=== PATIENT | male | born 1975 | race Caucasian/White ===

== ENCOUNTER 2019-01-18 18:44 | Inpatient (IN) | payer OTHER ==
[2019-01-18] MEDS ORDERED: ASPIRIN 81 MG PO STA (19:05)
--- NOTE | 2019-01-18 19:08 | ED ---
Chest Pain HPI - General Chief Complaint: Chest Pain Stated Complaint: chest pain Time Seen by Provider: 01/18/19 18:53 Source: patient Mode of arrival: wheelchair Limitations: no limitations - History of Present Illness Initial Comments: Patient is a 43-year-old male presenting for chest pain. Patient states that 10 minutes prior to arrival, he started having squeezing substernal chest pain with numbness and shooting pain down his right arm. This lasted about 20 minutes. He states that this happened before but never to this severity as well as d uration. 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 This happened while he was at rest and on the couch. He also denies any nausea/vomiting/diarrhea but did become diaphoretic during the episode. He denies any fevers or chills.Pt also denies any prolonged periods of immobility, CA, DVT/PE, estrogen use, or recent surgery. - Related Data Home Medications Medication Instructions Recorded Confirmed Ibuprofen [Motrin Ib] 1,000 mg PO Q8H 01/18/19 01/18/19 Allergies Allergy/AdvReac Type Severity Reaction Status Date / Time No Known Allergies Allergy Verified 01/18/19 19:20 Review of Systems ROS Statement: Those systems with pertinent positive or pertinent negative responses have been documented in the HPI. Constitutional: Negative for chills, fatigue and fever. HENT: Negative for congestion. Respiratory: Positive for chest tightness, negative for shortness of breath and wheezing. Negative for cough Cardiovascular: Negative for chest pain and palpitations. Gastrointestinal: Negative for abdominal pain. Negative for abdominal distention, diarrhea, nausea and vomiting. Genitourinary: Negative for dysuria. Musculoskeletal: Negative for back pain, neck pain and neck stiffness. Skin: Negative for color change. Neurological: Negative for dizziness, speech difficulty, weakness and light- headedness. Psychiatric/Behavioral: Negative for agitation and confusion. Negative for anxiety ROS Other: All systems not noted in ROS Statement are negative. EKG Findings - EKG Comments: EKG Findings:: EKG shows normal sinus rhythm with a rate of 84 bpm, MT interval 150, QRS 94, QTC 430. There are approximately [address] depressions in leads V5 and V6. Past Medical History Past Medical History: No Reported History History of Any Multi-Drug Resistant Organisms: None Reported Past Surgical History: Orthopedic Surgery, Tonsillectomy Past Psychological History: No Psychological Hx Reported Smoking Status: Current every day smoker Past Alcohol Use History: None Reported Past Drug Use History: None Reported General Exam - General Exam Comments Initial Comments: Constitutional: Pt appears well-developed and well-nourished. No distress. Head: Normocephalic and atraumatic. Eyes: EOM are normal. Neck: Normal range of motion. Neck supple. Cardiovascular: Normal rate, regular rhythm, S1 normal, S2 normal and 2+ systolic murmur noted. Exam reveals no gallop and no friction rub. No murmur heard. Pulmonary/Chest: Effort normal and breath sounds normal. No tachypnea and no bradypnea. No respiratory distress. Mild diffuse wheezing in all lung field. No rales noted. Abdominal: Soft. Bowel sounds are normal. Pt exhibits no shifting dullness, no distension, no pulsatile liver, no fluid wave, no abdominal bruit and no ascites. There is no rigidity, no rebound, no guarding, no tenderness at McBurney's point and negative Negron's sign. There is no tenderness. Musculoskeletal: Normal range of motion. Neurological: Pt is alert and oriented to person, place, and time. No cranial nerve deficit. Skin: Skin is warm and dry. No rash noted. Pt is not diaphoretic. No erythema. No pallor. Psychiatric: Pt has a normal mood and affect. Pt behavior is normal. Thought content normal. Limitations: no limitations Course Vital Signs 01/18/19 18:44 Temperature 98.5 F Pulse Rate 89 Respiratory 18 Rate Blood Pressure 151/96 O2 Sat by Pulse 98 Oximetry - Reevaluation(s) Reevaluation #1: 01/18/19 21:35-repeat EKG shows normal sinus rhythm with a rate of 82 bpm, MT interval 140, QRS 100, QTC 432. There is worsening ST elevation in lead V1. Case is been discussed with Dr. Perez and it is recommended that the cath team be brought in emergently although full optical laboratory technician activation for STEMI is not warranted. Recommended that heparin bolus not be initiated but patient will be started on heparin drip for an STEMI. Patient continues to remain hemodynamically stable at this time and is chest pain-free. Troponin is also elevated at 0.08. D-dimer is negative and other laboratory studies are unrem arkable. Chest Pain MDM - MDM As noted in the progress section of this note, patient will be taken to the [facility] urgently. At the time of this note, patient is hemodynamically stable. Disposition Clinical Impression: NSTEMI (non-ST elevated myocardial infarction) Disposition: ADMITTED IP TO THIS HOSP Condition: Fair Instructions (If sedation given, give patient instructions): Chest Pain (ED) Referrals: None,Stated [Primary Care Provider] - 1-2 days Decision to Admit Reason: Admit from EC Decision Date: 01/18/19 Decision Time: 21:40
[2019-01-18 19:56] LABS: Basophils # (A) 0.1 k/uL (0-0.2); Basophils % (A) 1 %; Eosinophils # (A) 0.2 k/uL (0-0.7); Eosinophils % (A) 2 %; HCT 44.5 % (39.0-53.0); HGB 14.9 gm/dL (13.0-17.5); Lymphocytes % (A) 27 %; MCH 30.7 pg (25.0-35.0); MCHC 33.6 g/dL (31.0-37.0); MCV 91.5 fL (80.0-100.0); Monocytes # (A) 0.7 k/uL (0-1.0); Monocytes % (A) 6 %; Neutrophils # (A) 7.2 k/uL (1.3-7.7); Neutrophils % (A) 64 %; Platelet Count 192 k/uL (150-450); RBC 4.86 m/uL (4.30-5.90); RDW 13.7 % (11.5-15.5); WBC 11.3 k/uL (3.8-10.6)
--- NOTE | 2019-01-18 20:09 | XR ---
EXAMINATION TYPE: XR chest 2V DATE OF EXAM: 01/18/2019 COMPARISON: NONE HISTORY: Chest pain TECHNIQUE: Frontal and lateral views of the chest are obtained. FINDINGS: Heart and mediastinum are normal. Lungs are clear of infiltrate. There is no pleural effus ion. Bony thorax is intact. There are chest leads. IMPRESSION: No active cardiopulmonary disease. Normal heart.
[2019-01-18 20:12] LABS: D-Dimer 0.33 mg/L FEU (<0.60); INR 0.9 (<1.2); Partial Thromboplastin Time 22.8 sec (22.0-30.0); Prothrombin Time 9.9 sec (9.0-12.0)
[2019-01-18 20:15] LABS: ALT 19 U/L (21-72); AST 16 U/L (17-59); Albumin 3.6 g/dL (3.5-5.0); Alkaline Phosphatase 55 U/L (38-126); Anion Gap 7 mmol/L; Blood Urea Nitrogen 13 mg/dL (9-20); Calcium 9.5 mg/dL (8.4-10.2); Carbon Dioxide 25 mmol/L (22-30); Chloride 111 mmol/L (98-107); Glucose 102 mg/dL (74-99); Magnesium 1.8 mg/dL (1.6-2.3); Potassium 4.2 mmol/L (3.5-5.1); Sodium 143 mmol/L (137-145); Total Bilirubin 0.4 mg/dL (0.2-1.3); Total Protein 5.9 g/dL (6.3-8.2)
[2019-01-18] MEDS ORDERED: NITROGLYCERIN SL TABS 0.4 MG TAB SUBLINGUAL PRN (21:42)
[2019-01-18] MEDS ORDERED: HEPARIN SODIUM,PORCINE 5,000 UNIT/ML 1 ML VIAL IV ONE (21:42)
[2019-01-18] MEDS ORDERED: MORPHINE SULFATE 4 MG/ML SYRINGE IV PRN (21:42)
[2019-01-18] MEDS ORDERED: METOPROLOL TARTRATE 25 MG TAB PO STA (21:57)
[2019-01-18] MEDS ORDERED: SODIUM CHLORIDE 0.9% 1,000 ML IV ONE (22:20)
[2019-01-18] MEDS ORDERED: HEPARIN SODIUM 1,000 UN/ML (10ML VL) ONE (22:23)
[2019-01-18] MEDS ORDERED: MIDAZOLAM (PF) 2 MG/2 ML VIAL IVP ONE (22:27)
[2019-01-18] MEDS ORDERED: LIDOCAINE 1% INJ 10MG/ML (20 ML MDV) SQ ONE (22:32)
[2019-01-18] MEDS: VERAPAMIL SYRINGE (5 MG/10 ML) INTRAARTER ONE ×2 (22:34→22:53)
[2019-01-18] MEDS ORDERED: HEPARIN SODIUM 1,000 UN/ML (10ML VL) IV ONE (22:35)
[2019-01-18] MEDS: MIDAZOLAM (PF) 2 MG/2 ML VIAL IVP ONE ×2 (22:36→22:43)
[2019-01-18] MEDS ORDERED: MORPHINE SULFATE 4 MG/ML SYRINGE ONE (22:37)
[2019-01-18] MEDS ORDERED: MORPHINE SULFATE 4 MG/ML SYRINGE IVP ONE (22:39)
[2019-01-18] MEDS ORDERED: IOPAMIDOL-370 125ML BTL INJ ONE (22:50)
[2019-01-18] MEDS ORDERED: RX INFO: IV CONTRAST WAS GIVEN 1 EACH MISC MISCELLANE PRN (23:06)
[2019-01-18] MEDS ORDERED: SODIUM CHLORIDE 0.9% 1,000 ML IV SCH (23:15)
--- NOTE | 2019-01-18 23:17 | P.CRDCN ---
History of Present Illness Consult date: 01/18/19 Chief complaint: Chest pain History of present illness: This is a pleasant 43-year-old gentleman with a past medical history significant for history of smoking as well as significant family history of coronary artery disease without any other comorbid conditions including hypertension, dyslipidemia, or diabetes, presented to the emergency room complaining of chest discomfort. He was in his usual state of health until earlier today when he was sitting at home working on his form when he started experiencing discomfort in the mid of the chest, as a squeezing sensation, the chest discomfort was associated with numbness in his lateral right arm. Also it was associated with some sweating. No shortness of breath, dizziness, heart racing, or syncope. Because of that the patient decided to come to the emergency room. In the emergency department he did have some chest discomfort. Subsequently it was resolved. The first set of troponin came in to be slightly elevated. The EKG initially showed sinus rhythm with nonspecific changes in the inferolateral leads but the subsequent EKG revealed sinus rhythm with T-wave inversion in the inferolateral leads quite concerning for ischemia. Because of that I decided to take the patient to the cardiac laboratory apparatus glass blower. I did perform a heart catheterization on him and that revealed critical disease involving the left main coronary artery in its ostium/proximal portion with the disease appeared to be in the range of 99.9%. There was significant dampening in the pressure every time I engaged the left main was 5-[place] catheter. But on the nonselective picture there was clearly critical disease involving the ostial and proximal portion of the left main. At that point the procedure was completed without any complication and the patient was referred to be seen by a surgeon for the evalua tion of coronary artery bypass grafting. Please note that the patient did not have any chest pain nor EKG changes of bone engaging the left main coronary artery. He will be started on anti-ischemic medications including aspirin, and metoprolol, as well as high intensity statin. Also will obtain an echocardiogram to evaluate the left ventricular systolic function also I would get a cardiothoracic surgeon consult. Past Medical History Past Medical History: No Reported History History of Any Multi-Drug Resistant Organisms: None Reported Past Surgical History: Orthopedic Surgery, Tonsillectomy Past Psychological History: No Psychological Hx Reported Smoking Status: Current every day smoker Past Alcohol Use History: None Reported Past Drug Use History: None Reported Medications and Allergies Home Medications Medication Instructions Recorded Confirmed Type Ibuprofen [Motrin Ib] 1,000 mg PO Q8H 01/18/19 01/18/19 History Allergies Allergy/AdvReac Type Severity Reaction Status Date / Time No Known Allergies Allergy Verified 01/18/19 19:20 Physical Exam Vitals: Vital Signs Temp Pulse Resp BP Pulse Ox 01/18/19 22:00 78 16 141/91 100 01/18/19 18:44 98.5 F 89 18 151/96 98 Intake and Output 01/18/19 01/18/19 01/19/19 14:59 22:59 06:59 Intake Total 100 Balance 100 Intake: IV 100 Other: Weight 81.193 kg - Constitutional General appearance: no acute distress - Respiratory Respiratory: bilateral: CTA - Cardiovascular Rhythm: regular Heart sounds: normal: S1, S2 Abnormal Heart Sounds: systolic murmur Results 01/18/19 19:44 01/18/19 19:44 Cardiac Enzymes 01/18/19 01/18/19 Range/Units 19:44 19:44 AST 16 L (17-59) U/L Troponin I 0.081 H* (0.000-0.034) ng/mL Coagulation 01/18/19 Range/Units 19:44 PT 9.9 (9.0-12.0) sec APTT 22.8 (22.0-30.0) sec CBC 01/18/19 Range/Units 19:44 WBC 11.3 H (3.8-10.6) k/uL RBC 4.86 (4.30-5.90) m/uL Hgb 14.9 (13.0-17.5) gm/dL Hct 44.5 (39.0-53.0) % Plt Count 192 (150-450) k/uL Comprehensive Metabolic Panel 01/18/19 Range/Units 19:44 Sodium 143 (137-145) mmol/L Potassium 4.2 (3.5-5.1) mmol/L Chloride 111 H (98-107) mmol/L Carbon Dioxide 25 (22-30) mmol/L BUN 13 (9-20) mg/dL Creatinine 0.77 (0.66-1.25) mg/dL Glucose 102 H (74-99) mg/dL Calcium 9.5 (8.4-10.2) mg/dL AST 16 L (17-59) U/L ALT 19 L (21-72) U/L Alkaline Phosphatase 55 (38-126) U/L Total Protein 5.9 L (6.3-8.2) g/dL Albumin 3.6 (3.5-5.0) g/dL Current Medications Generic Name Dose Route Start Last Admin Trade Name Freq PRN Reason Stop Dose Admin Aspirin 325 mg 01/19/19 09:00 Aspirin PO DAILY [facility] Atorvastatin Calcium 80 mg 01/19/19 21:00 Lipitor PO HS [facility] Heparin Sodium/Sodium Chloride 250 mls @ 9.743 mls/hr 01/18/19 21:30 25,000 unit/ Sodium Chloride IV .Q24H [facility] Protocol 12 UNITS/KG/HR Sodium Chloride 1,000 mls @ 100 mls/hr 01/18/19 23:15 Saline 0.9% IV 01/19/19 04:16 .Q10H [facility] Metoprolol Tartrate 25 mg 01/19/19 09:00 Lopressor PO BID [facility] Miscellaneous Information 1 each 01/18/19 23:06 Rx Info: Iv Contrast Was Given MISCELLANE 01/20/19 23:06 DAILY PRN Per Protocol Morphine Sulfate 4 mg 01/18/19 21:42 Morphine Sulfate (Inj) IV Q5M PRN Chest Pain Nitroglycerin 0.4 mg 01/18/19 21:42 Nitrostat SUBLINGUAL Q5M PRN Chest Pain Intake and Output 01/18/19 01/18/19 01/19/19 14:59 22:59 06:59 Intake Total 100 Balance 100 Intake: IV 100 Other: Weight 81.193 kg Patient Weight 01/19/19 06:59 Weight 81.193 kg 01/18/19 19:44 01/18/19 19:44 Assessment and Plan Assessment: Assessment #1 acute non-ST deviation myocardial infarction #2 severe left main coronary artery disease #3 history of smoking #4 significant family history of coronary artery disease Plan #1 consult surgeon for the evaluation of CABG #2 aspirin, metoprolol, and high intensity statin #3 an echocardiogram was Doppler to establish LV function #4 fasting lipid profile #5 follow-up with the patient Thank you for allowing us participate in his care and we will continue following up with him
[2019-01-18 23:20] LABS: Glucose,Whole Blood 101 mg/dL (75-99)
[2019-01-18 23:25] LABS: Cholesterol 132 mg/dL (<200); HDL Cholesterol 32 mg/dL (40-60); LDL Cholesterol,Calculated 80 mg/dL (0-99); Triglycerides 102 mg/dL (<150)
[2019-01-18] MEDS: ATORVASTATIN 80 MG TAB PO SCH (23:58)
--- NOTE | 2019-01-19 00:02 | CC ---
CARDIAC CATHETERIZATION REPORT DATE OF SERVICE: January 18, 2019 PERFORMING PHYSICIAN: Eduar Desai MD, assistant quality manager. PROCEDURE PERFORMED: 1. Selective right and left coronary angiogram. 2. Left heart catheterization. INDICATION: This is a pleasant 43-year-old gentleman with history of smoking as well as significant family history of coronary artery disease, presented to the emergency room with chest discomfort started earlier today. The cardiac enzymes were slightly elevated. The EKG showed dynamic changes in the inferolateral leads. Because of that, heart catheterization was advised. APPROACH: Right radial artery. COMPLICATION: None. LEVEL OF SEDATION: Moderate with sedation length of 23 minutes. PROCEDURE DESCRIPTION: After obtaining an informed consent, the patient was brought to cardiac medical laboratory technical officer. The right radial artery was cannulated using micropuncture technique, the micropuncture wire passed easily. Then I placed a 5-Wolof sheath 11 cm in the right radial artery. After that, I did give the patient 2 mg of verapamil IA and 8000 units of heparin IV. After that, I did selective right and left coronary angiogram using JR4 and JL3.5 catheters. Left heart catheterization was performed using 5-Wolof pigtail catheter. The procedure was completed without any complication. SELECTIVE CORONARY ANGIOGRAM: 1. The right coronary artery is a medium to large caliber vessel and is a dominant vessel. The right coronary artery appeared to have mild disease only distally. It gives collateral to the left circumflex and left anterior descending artery. 2. The left main has a lesion in the ostium that appeared to be in the range of 95%. The left main bifurcates into the left circumflex and left anterior descending artery. 3. The left circumflex is a large caliber vessel and it is a nondominant vessel. The left circumflex itself appears to be angiographically normal. 4. The proximal LAD appeared to have mild disease only. The mid LAD and distal LAD appeared to be angiographically normal. The LAD gives rise into a medium to large sized diagonal branch which seems to be normal. HEMODYNAMICS: The left ventricular end-diastolic pressure was about 8 mmHg without significant gradient across aortic valve. CONCLUSION: Critical disease involving the ostial/proximal left main coronary artery. POSTPROCEDURE MANAGEMENT: 1. Given the above anatomy, I did recommend the patient to undergo coronary artery bypass grafting. 2. Start the patient on anti-platelet as well as anti-ischemic medications. 3. He will be started on aspirin, high intensity statin, as well as metoprolol. 4. Obtain an echocardiogram with Doppler. 5. Consult cardiothoracic surgeon for the evaluation of CABG. BRIT / IJN: [id number] /
[2019-01-19 04:33] LABS: Basophils # (A) 0.1 k/uL (0-0.2); Basophils % (A) 1 %; Eosinophils # (A) 0.2 k/uL (0-0.7); Eosinophils % (A) 2 %; HCT 41.5 % (39.0-53.0); HGB 13.6 gm/dL (13.0-17.5); Lymphocytes # (A) 4.3 k/uL (1.0-4.8); Lymphocytes % (A) 49 %; MCH 30.4 pg (25.0-35.0); MCHC 32.7 g/dL (31.0-37.0); Mean Platelet Volume 7.4; Monocytes # (A) 0.4 k/uL (0-1.0); Monocytes % (A) 4 %; Neutrophils # (A) 3.9 k/uL (1.3-7.7); Neutrophils % (A) 43 %; Platelet Count 171 k/uL (150-450); RBC 4.47 m/uL (4.30-5.90); RDW 14.1 % (11.5-15.5); WBC 8.9 k/uL (3.8-10.6)
[2019-01-19 04:46] LABS: INR 0.9 (<1.2); Partial Thromboplastin Time 22.7 sec (22.0-30.0); Prothrombin Time 10.1 sec (9.0-12.0)
[2019-01-19 04:49] LABS: ALT 20 U/L (21-72); AST 12 U/L (17-59); Alkaline Phosphatase 45 U/L (38-126); Anion Gap 5 mmol/L; Blood Urea Nitrogen 12 mg/dL (9-20); Calcium 8.7 mg/dL (8.4-10.2); Carbon Dioxide 27 mmol/L (22-30); Chloride 111 mmol/L (98-107); Glucose 142 mg/dL (74-99); Magnesium 1.9 mg/dL (1.6-2.3); Phosphorus 4.4 mg/dL (2.5-4.5); Potassium 3.8 mmol/L (3.5-5.1); Sodium 143 mmol/L (137-145); Total Bilirubin 0.2 mg/dL (0.2-1.3); Total Protein 5.2 g/dL (6.3-8.2)
[2019-01-19] MEDS ORDERED: Potassium Replacement Protocol 1 EACH MISC MISCELLANE PRN (05:04)
[2019-01-19] MEDS ORDERED: Magnesium Replacement Protocol 1 EACH MISC MISCELLANE PRN (05:06)
[2019-01-19] MEDS: MAGNESIUM SULFATE-D5W PMX 1 GM in DEXTROSE/WATER 1 100ML.BAG IVPB SCH ×2 (05:26→06:34)
--- NOTE | 2019-01-19 05:29 | P.HPIM ---
History of Present Illness H&P Date: 01/18/19 Chief Complaint: chest pain The patient is a 43-year-old male with no significant past medical history that presents to the ER via private vehicle with chief complaints of chest pain. Apparently the patient began having substernal squeezing chest tightness rated at a 7 out of 10 with radiation to his right upper extremity with some associated shortness of breath and diaphoresis that began at approximately 6 PM this evening. The patient is denies any associated with exertion as he was simply using his phone on his symptoms began. The patient does have a history of smoking and reports a family history of early coronary disease in his father. The patient reports that he's been having similar episodes over the last month but they have never previously been quite as severe, they have all only lasted less than 5 minutes however today the patient reports that his pain was persisting up to 20 minutes prior to presentation. The patient had previously attributed his symptoms to stress. In the ER the patient had a comprehensive workup, was noted to have elevated troponin at 0.081, with EKG showing some ST depression in the inferior lateral leads, d-dimer was negative. Chest x-ray showed no acute cardiopulmonary disease. The patient was given 4 baby aspirin and started on heparin drip per protocol and recommended for admission for ACS. Review of Systems Pertinent positives per HPI all others review of systems are otherwise negative Past Medical History Past Medical History: No Reported History History of Any Multi-Drug Resistant Organisms: None Reported Past Surgical History: Orthopedic Surgery, Tonsillectomy Past Psychological History: No Psychological Hx Reported Smoking Status: Current every day smoker Past Alcohol Use History: None Reported Past Drug Use History: None Reported - Past Family History Mother Additional Family Medical History / Comment(s): hypoglycemic Father Family Medical History: Chest Pain / Angina, Diabetes Mellitus, Myocardial Infarction ([place]) Medications and Allergies Home Medications Medication Instructions Recorded Confirmed Type Ibuprofen [Motrin Ib] 1,000 mg PO Q8H 01/18/19 01/18/19 History Allergies Allergy/AdvReac Type Severity Reaction Status Date / Time No Known Allergies Allergy Verified 01/18/19 19:20 Physical Exam Vitals: Vital Signs Temp Pulse Resp BP Pulse Ox 01/18/19 18:44 98.5 F 89 18 151/96 98 Intake and Output 01/18/19 01/18/19 01/18/19 06:59 14:59 22:59 Other: Weight 81.193 kg Constitutional: No acute distress, conversant, pleasant Eyes: Anicteric sclerae, moist conjunctiva, no lid-lag, PERRLA ENMT: NC/AT,Oropharynx clear, no erythema, exudates Neck:Supple, FROM, no masses, or JVD, No carotid bruits; No thyromegaly Lungs: Clear to auscultation, Clear to percussion, Normal respiratory effort, no accessory muscle use Cardiovascular: Heart regular in rate and rhythm, No murmurs, gallops, or rubs no peripheral edema Abdominal: Soft Nontender, nom distended, no guarding, no rebound or rigidity, Normoactive bowel sounds No hepatomegaly, No splenomegaly, No palpable mass No abdominal wall hernia noted Skin: Normal temperature, tone, texture, turgor, No induration No subcutaneous nodules, No rash, lesions, No ulcers Extremities:No digital cyanosis No clubbing, Pedal pulses intact and symmetrical Radial pulses intact and symmetrical Normal gait and station, No ca lf tenderness Psychiatric: Alert and oriented to person, place and time, Appropriate affect Intact judgement Neuro: Muscles Strength 5/5 in all 4 extremities, Sensation to light touch grossly present throughout, Cranial nerves II-XII grossly intact. No focal sensory deficits Results CBC & Chem 7: 01/19/19 04:18 01/19/19 04:18 Labs: Abnormal Lab Results - Last 24 Hours (Table) 01/18/19 01/18/19 01/18/19 Range/Units 19:44 19:44 19:44 WBC 11.3 H (3.8-10.6) k/uL Chloride 111 H (98-107) mmol/L Glucose 102 H (74-99) mg/dL AST 16 L (17-59) U/L ALT 19 L (21-72) U/L Troponin I 0.081 H* (0.000-0.034) ng/mL Total Protein 5.9 L (6.3-8.2) g/dL Assessment and Plan (1) NSTEMI (non-ST elevated myocardial infarction) Current Visit: Yes Status: Acute Code(s): I21.4 - NON-ST ELEVATION (NSTEMI) MYOCARDIAL INFARCTION SNOMED Code(s): 17004176 (2) Essential hypertension Current Visit: Yes Status: Acute Code(s): I10 - ESSENTIAL (PRIMARY) HY PERTENSION SNOMED Code(s): 19564000 (3) Smoking Current Visit: Yes Status: Acute Code(s): F17.200 - NICOTINE DEPENDENCE, UNSPECIFIED, UNCOMPLICATED SNOMED Code(s): 57306831 Plan: The patient is admitted anticipated greater than 2 midnight stay with acute coronary syndrome with non-STEMI after presenting with chest pain, with EKG evidence of inferior lateral ischemia and elevation of cardiac enzymes troponin at 0.081. Cardiology was consulted from the ER and plans to take the patient urgently to the labor relations director. The patient is continued on heparin drip, antiplatelet therapy with aspirin and statin therapy with Lipitor and initiated on metoprolol We'll plan to have a echocardiogram performed. Lipid panel check CODE STATUS: Full code Discussed plan of care with: Patient anticipated discharge: 2-3 days Time with Patient: Greater than 30
[2019-01-19] MEDS ORDERED: POTASSIUM CHLORIDE ER 20 MEQ TAB.ER PO SCH (06:00)
--- NOTE | 2019-01-19 07:39 | P.PN ---
Subjective Progress Note Date: 01/19/19 Principal diagnosis: Acute non-ST deviation [place] This is a pleasant 43-year-old gentleman with history of smoking and significant family history of coronary artery disease presented to the emergency room with a chest discomfort and he was found to have mildly abnormal cardiac enzymes as well as ST changes in the inferolateral leads highly suggestive of severe underlying coronary artery disease. Because of that the patient underwent a heart catheterization last night showed critical disease involving the left main coronary artery. He was referred for coronary artery bypass grafting and he is in process to be seen by a cardiothoracic surgeon. On follow-up with him this morning, January 192018, he seems to be asymptomatic from the cardiac standpoint. He has been maintaining normal sinus rhythm. He is on aspirin, metoprolol, and statin. He does have some right radial hematoma and he still have the TR band in place. The plan is to restart the patient back on heparin once we have good hemostasis. Also follow-up on the echocardiogram which going to be performed today. Objective - Vital Signs Vital signs: Vital Signs Temp 97.9 F 01/19/19 04:00 Pulse 62 01/19/19 06:00 Resp 13 01/19/19 06:00 BP 122/84 01/19/19 06:00 Pulse Ox 95 01/19/19 06:00 Intake & Output 01/18/19 01/19/19 01/19/19 18:59 06:59 18:59 Intake Total 1660 Output Total 525 Balance 1135 Weight 81.193 kg 84.2 kg Intake: IV 200 Magnesium Sulfate-D5w Pmx 100 1 gm In Dextrose/Water 1 100ml.bag @ 100 mls/hr IVPB Q1H [facility] Rx#: [id number] Intake, IV Titration 620 Amount Sodium Chloride 0.9% 1, 620 000 ml @ 100 mls/hr IV . Q10H [facility] Rx#:[id number] Oral 840 Output: Urine 525 Other: Voiding Method Urinal # Voids 1 - Constitutional General appearance: Present: no acute distress - Respiratory Respiratory: bilateral: CTA - Cardiovascular Rhythm: regular Heart sounds: normal: S1, S2 - Labs CBC & Chem 7: 01/19/19 04:18 01/19/19 04:18 Labs: Abnormal Lab Results - Last 24 Hours (Table) 01/18/19 01/18/19 01/18/19 Range/Units 19:44 19:44 19:44 WBC 11.3 H (3.8-10.6) k/uL Chloride 111 H (98-107) mmol/L Glucose 102 H (74-99) mg/dL POC Glucose (mg/dL) (75-99) mg/dL AST 16 L (17-59) U/L ALT 19 L (21-72) U/L Troponin I 0.081 H* (0.000-0.034) ng/mL Total Protein 5.9 L (6.3-8.2) g/dL Albumin (3.5-5.0) g/dL HDL Cholesterol (40-60) mg/dL 01/18/19 01/18/19 01/19/19 Range/Units 19:44 23:16 02:22 WBC (3.8-10.6) k/uL Chloride (98-107) mmol/L Glucose (74-99) mg/dL POC Glucose (mg/dL) 101 H (75-99) mg/dL AST (17-59) U/L ALT (21-72) U/L Troponin I 0.103 H* (0.000-0.034) ng/mL Total Protein (6.3-8.2) g/dL Albumin (3.5-5.0) g/dL HDL Cholesterol 32 L (40-60) mg/dL 01/19/19 Range/Units 04:18 WBC (3.8-10.6) k/uL Chloride 111 H (98-107) mmol/L Glucose 142 H (74-99) mg/dL POC Glucose (mg/dL) (75-99) mg/dL AST 12 L (17-59) U/L ALT 20 L (21-72) U/L Troponin I (0.000-0.034) ng/mL Total Protein 5.2 L (6.3-8.2) g/dL Albumin 3.0 L (3.5-5.0) g/dL HDL Cholesterol (40-60) mg/dL Assessment and Plan Assessment: Assessment #1 acute non-ST deviation myocardial infarction #2 severe left main coronary artery disease #3 history of smoking #4 significant family history of coronary artery disease Plan #1 consult surgeon for the evaluation of CABG #2 aspirin, metoprolol, and high intensity statin #3 an echocardiogram was Doppler to establish LV function #4 follow-up with the patient Thank you for allowing us participate in his care and we will continue following up with him
[2019-01-19] MEDS: ASPIRIN 325 MG TAB PO SCH (09:47)
[2019-01-19] MEDS: METOPROLOL TARTRATE 25 MG TAB PO SCH ×2 (09:47→20:47)
[2019-01-19] MEDS: HEPARIN SOD,PORK IN 0.45% NACL 25,000 UNIT in 0.45% NACL 1 250ML.BAG IV SCH (09:49)
--- NOTE | 2019-01-19 09:58 | US ---
EXAMINATION TYPE: US carotid duplex BILAT DATE OF EXAM: 01/19/2019 COMPARISON: NONE CLINICAL HISTORY: preop cabg. No HTN, no hx of tia or stroke EXAM MEASUREMENTS: RIGHT: Peak Systolic Velocity (PSV) cm/sec ----- Right CCA: 77.6 ----- Right ICA: 88.6 ----- Right ECA: 143.1 ICA/CCA ratio: 1.1 RIGHT: End Diastole cm/sec ----- Right CCA: 28.1 ----- Right ICA: 40.2 ----- Right ECA: 28.4 LEFT: Peak Systolic Velocity (PSV) cm/sec ----- Left CCA: 96.3 ----- Left ICA: 75.6 ----- Left ECA: 18.9 ICA/CCA ratio: 0.8 LEFT: End Diastole cm/sec ----- Left CCA: 38.0 ----- Left ICA: 35.4 ----- Left ECA: 32.7 VERTEBRALS (direction of flow): Right Vertebral: Antegrade Left Vertebral: Antegrade Rhythm: Normal IMPRESSION: No plaque. Elevated bilateral ECA's. No significant stenosis. Left CCA wall thickening . Criteria for Assigning % of Stenosis / Diameter reduction (Estimation based on the indirect measurements of the internal carotid artery velocities (ICA PSV). 1. Normal (no stenosis)=ICA PSV < 125 cm/s: ratio < 2.0: ICA EDV<40 cm/s. 2. Less than 50% stenosis=ICA PSV < 125 cm/s: ratio < 2.0: ICA EDV<40 cm/s. 3. 50 to 69% stenosis=ICA PSV of 125 to 230 cm/s: ration 2.0 ? 4.0: ICA EDV 40-100 cm/s. 4. Greater than 70% stenosis to near occlusion= ICA PSV > 230 cm/s: ratio > 4.0: ICA EDV > 100 cm/s. 5. Near occlusion= ICA PSV velocities may be low or undetectable: variable ratio and ICA EDV. 6. Total occlusion=unable to detect flow.
[2019-01-19 10:26] LABS: Appearance,Urine Clear (Clear); Bilirubin,Urine Negative (Negative); Blood,Urine Negative (Negative); Color,Urine Yellow; Glucose,Urine (UA) Negative (Negative); Ketones,Urine Negative (Negative); Leukocyte Esterase,Urine Negative (Negative); Nitrite,Urine Negative (Negative); PH, Urine 5.5 (5.0-8.0); Protein,Urine Negative (Negative); Specific Gravity,Urine 1.022 (1.001-1.035); Urobilinogen,Urine <2.0 mg/dL (<2.0)
--- NOTE | 2019-01-19 10:35 | P.GSCN ---
History of Present Illness Consult date: 01/19/19 Reason for Consult: Critical left main disease, surgical recommendations Requesting physician: Eduar Desai History of present illness: This is a 43-year-old gentleman who has not followed with a primary care physician in the last 4-5 years. His only previous medical history is current tobacco dependence, and family history of premature coronary artery disease. He has not been on any medical therapy. He presented to [facility] emergency room last night with complaints of severe substernal chest pain asso ciated with right arm numbness and diaphoresis, no complaints of shortness of breath, nausea, dizziness or any other aggravating factors. Upon further questioning he has been having similar episodes over the previous month just not quite as severe. His previous episodes only lasted for a couple of minutes, and abated on their own and he attributed these episodes to stress. Last night's episode lasted 20 minutes prompting the patient to come to the emergency room. His EKG did demonstrate ST changes in the inferolateral leads. His troponins were mildly elevated and he was ruled in for non-STEMI. He was taken urgently to the cardiac catheterization lab by Dr. Desai and was found to have 95% ostial left main stenosis. Due to these findings Dr. Purvis from cardiothoracic surgery was consulted regarding surgical revascularization recommendations. Review of Systems Review of systems was completed and was negative except as noted. - Cardiovascular Reports as per HPI, Reports chest pain Past Medical History Past Medical History: No Reported History History of Any Multi-Drug Resistant Organisms: None Reported Past Surgical History: Tonsillectomy Additional Past Surgical History / Comment(s): ear surgerys 7-[address], broken fingers, history of elevated liver enzymes while in , scarlet fever 3 times while younger Past Anesthesia/Blood Transfusion Reactions: No Reported Reaction Past Psychological History: No Psychological Hx Reported Smoking Status: Current every day smoker Past Alcohol Use History: Rare Past Drug Use History: None Reported - Past Family History Mother Additional Family Medical History / Comment(s): hypoglycemic Father Family Medical History: Chest Pain / Angina, Diabetes Mellitus, Myocardial Infarction ([place]) Additional Family Medical History / Comment(s): in his early 40s from heart disease, also grandfather and several uncles with premature heart disease Medications and Allergies Home Medications Medication Instructions Recorded Confirmed Type Ibuprofen [Motrin Ib] 1,000 mg PO Q8H 05/05/19 05/05/19 History Allergies Allergy/AdvReac Type Severity Reaction Status Date / Time No Known Allergies Allergy Verified 01/18/19 19:20 Surgical - Exam Vital Signs Temp Pulse Resp BP Pulse Ox 98.5 F 89 18 151/96 98 01/18/19 18:44 01/18/19 18:44 01/18/19 18:44 01/18/19 18:44 01/18/19 18:44 - General well developed, well nourished, no distress, no pain - Eyes PERRL, normal ocular movement - ENT Does have some missing teeth and a cracked tooth, has not seen the dentist in years no hearing loss - Neck no masses, no bruits, trachea midline - Respiratory Lungs sounds clear bilaterally. Respirations even, nonlabored. Currently on room air with oxygen saturation 96%. No chest wall deformities. - Cardiovascular S1, S2 present. Regular rate and rhythm, sinus rhythm on telemetry. Palpable peripheral pulses bilaterally. No edema present. No calf pain or tenderness noted. No varicosities noted. - Abdomen Abdomen: soft, non tender, bowel sounds - Genitourinary Deferred - Rectum Deferred - Integumentary Right radial artery heart catheterization site without drainage, hematoma present with TR band in place. no rash, no growths - Neurologic normal coordination, normal sensation - Musculoskeletal normal posture - Psychiatric oriented to time, oriented to person, oriented to place, speech is normal, memory intact Results - Labs 01/19/19 04:18 01/19/19 04:18 Abnormal Lab Results - Last 24 Hours (Table) 01/18/19 01/18/19 01/18/19 Range/Units 19:44 19:44 19:44 WBC 11.3 H (3.8-10.6) k/uL Chloride 111 H (98-107) mmol/L Glucose 102 H (74-99) mg/dL POC Glucose (mg/dL) (75-99) mg/dL AST 16 L (17-59) U/L ALT 19 L (21-72) U/L Troponin I 0.081 H* (0.000-0.034) ng/mL Total Protein 5.9 L (6.3-8.2) g/dL Albumin (3.5-5.0) g/dL HDL Cholesterol (40-60) mg/dL 01/18/19 01/18/19 01/19/19 Range/Units 19:44 23:16 02:22 WBC (3.8-10.6) k/uL Chloride (98-107) mmol/L Glucose (74-99) mg/dL POC Glucose (mg/dL) 101 H (75-99) mg/dL AST (17-59) U/L ALT (21-72) U/L Troponin I 0.103 H* (0.000-0.034) ng/mL Total Protein (6.3-8.2) g/dL Albumin (3.5-5.0) g/dL HDL Cholesterol 32 L (40-60) mg/dL 01/19/19 01/19/19 Range/Units 04:18 08:33 WBC (3.8-10.6) k/uL Chloride 111 H (98-107) mmol/L Glucose 142 H (74-99) mg/dL POC Glucose (mg/dL) (75-99) mg/dL AST 12 L (17-59) U/L ALT 20 L (21-72) U/L Troponin I 0.108 H* (0.000-0.034) ng/mL Total Protein 5.2 L (6.3-8.2) g/dL Albumin 3.0 L (3.5-5.0) g/dL HDL Cholesterol (40-60) mg/dL Diabetes panel 01/18/19 01/18/19 01/19/19 Range/Units 19:44 19:44 04:18 Sodium 143 143 (137-145) mmol/L Potassium 4.2 3.8 (3.5-5.1) mmol/L Chloride 111 H 111 H (98-107) mmol/L Carbon Dioxide 25 27 (22-30) mmol/L BUN 13 12 (9-20) mg/dL Creatinine 0.77 0.83 (0.66-1.25) mg/dL Glucose 102 H 142 H (74-99) mg/dL Calcium 9.5 8.7 (8.4-10.2) mg/dL AST 16 L 12 L (17-59) U/L ALT 19 L 20 L (21-72) U/L Alkaline Phosphatase 55 45 (38-126) U/L Total Protein 5.9 L 5.2 L (6.3-8.2) g/dL Albumin 3.6 3.0 L (3.5-5.0) g/dL Triglycerides 102 (<150) mg/dL HDL Cholesterol 32 L (40-60) mg/dL Thyroid panel 01/19/19 Range/Units 08:36 TSH 1.670 (0.465-4.680) mIU/L Calcium panel 01/18/19 01/19/19 Range/Units 19:44 04:18 Calcium 9.5 8.7 (8.4-10.2) mg/dL Phosphorus 4.4 (2.5-4.5) mg/dL Albumin 3.6 3.0 L (3.5-5.0) g/dL Pituitary panel 01/18/19 01/19/19 01/19/19 Range/Units 19:44 04:18 08:36 Sodium 143 143 (137-145) mmol/L Potassium 4.2 3.8 (3.5-5.1) mmol/L Chloride 111 H 111 H (98-107) mmol/L Carbon Dioxide 25 27 (22-30) mmol/L BUN 13 12 (9-20) mg/dL Creatinine 0.77 0.83 (0.66-1.25) mg/dL Glucose 102 H 142 H (74-99) mg/dL Calcium 9.5 8.7 (8.4-10.2) mg/dL TSH 1.670 (0.465-4.680) mIU/L Adrenal panel 01/18/19 01/19/19 Range/Units 19:44 04:18 Sodium 143 143 (137-145) mmol/L Potassium 4.2 3.8 (3.5-5.1) mmol/L Chloride 111 H 111 H (98-107) mmol/L Carbon Dioxide 25 27 (22-30) mmol/L BUN 13 12 (9-20) mg/dL Creatinine 0.77 0.83 (0.66-1.25) mg/dL Glucose 102 H 142 H (74-99) mg/dL Calcium 9.5 8.7 (8.4-10.2) mg/dL Total Bilirubin 0.4 0.2 (0.2-1.3) mg/dL AST 16 L 12 L (17-59) U/L ALT 19 L 20 L (21-72) U/L Alkaline Phosphatase 55 45 (38-126) U/L Total Protein 5.9 L 5.2 L (6.3-8.2) g/dL Albumin 3.6 3.0 L (3.5-5.0) g/dL - Imaging Chest x-ray: report reviewed, image reviewed EKG: image reviewed Additional studies: Heart catheterization films were reviewed with Dr. Purvis Assessment and Plan Assessment: 1. Critical left main stenosis 2. Non-STEMI 3. Current tobacco dependence 4. Significant family history of premature coronary artery disease Plan: The patient was seen and examined at the bedside with Dr. Purvis. Chart/diagnostics were reviewed. We recommend urgent coronary artery bypass surgery. The usual perioperative course was discussed in detail with the patient, risks and benefits were reviewed, all questions were answered, and the patient did consent to surgery. Preoperative testing was initiated. We recommend maximizing medical therapy with aspirin, statin, beta blockers. Our plan is for urgent coronary artery bypass graft surgery with left internal mammary artery, endoscopic vein harvesting, possible left radial artery harvest, and intraoperative transesophageal echocardiogram on 01/21/[address] Balbuena pending results of preoperative testing. STS risk score will be ca lculated and discussed with the patient, and 5 m walk test will be performed. Continue medical management per primary care, cardiology. We will continue to reinforce teaching. More recommendations to follow. Thank you Dr. Desai for this consult. We look forward to working with you in the care of this patient. Time with Patient: Greater than 30
--- NOTE | 2019-01-19 11:46 | ECHOF ---
Referral Reason:nstemi MEASUREMENTS -------- HEIGHT: 175.3 cm WEIGHT: 83.9 kg BP: 122/84 IVSd: 1.3 cm (0.6 - 1.1) LVIDd: 4.3 cm (3.9 - 5.3) LVPWd: 1.3 cm (0.6 - 1.1) IVSs: 1.6 cm LVIDs: 3.0 cm LVPWs: 1.8 cm LA Diam: 3.3 cm (2.7 - 3.8) RVIDd: 2.9 cm (< 3.3) LAESV Index (A-L): 27.04 ml/m Ao Diam: 2.8 cm (2.0 - 3.7) AV Cusp: 1.9 cm (1.5 - 2.6) EPSS: 0.6 cm MV E Art: 1.10 m/s MV DecT: 172 ms MV A Art: 0.78 m/s MV E/A Ratio: 1.40 AV maxP.39 mmHg AV meanP.14 mmHg RAP: 5.00 mmHg RVSP: 33.46 mmHg MV EF SLOPE: 118.78 mm/s (70 - 150) MV EXCURSION: 17.57 mm (> 18.000) FINDINGS -------- Sinus rhythm. This was a technically good study. The left ventricular size is normal. There is mild concentric left ventricular hypertrophy. Overa ll left ventricular systolic function is normal with, an EF between 60 - 65 %. The right ventricle is normal in size. Normal LA size by volume 22+/-6 ml/m2. The right atrium is normal in size. The aortic valve is trileaflet and appears structurally normal. There is trace to mild mitral regurgitation. Mild tricuspid regurgitation present. There is borderline pulmonary hypertension. The right ventr icular systolic pressure, as measured by Doppler, is 33.46mmHg. The pulmonic valve was not well visualized. The aortic root size is normal. Normal inferior vena cava with normal inspiratory collapse consistent with estimated right atrial pre ssure of 5 mmHg. The inferior vena cava is mildly dilated. There is no pericardial effusion. CONCLUSIONS -------- 1. Sinus rhythm. 2. This was a technically good study. 3. The left ventricular size is normal. 4. There is mild concentric left ventricular hypertrophy. 5. Overall left ventricular systolic function is normal with, an EF between 60 - 65 %. 6. The right ventricle is normal in size. 7. Normal LA size by volume 22+/-6 ml/m2. 8. The right atrium is normal in size. 9. The aortic valve is trileaflet and appears structurally normal. 10. There is trace to mild mitral regurgitation. 11. Mild tricuspid regurgitation present. 12. There is borderline pulmonary hypertension. 13. The right ventricular systolic pressure, as measured by Doppler, is 33.46mmHg. 14. The pulmonic valve was not well visualized. 15. The aortic root size is normal. 16. Normal inferior vena cava with normal inspiratory collapse consistent with estimated right atrial pressure of 5 mmHg. 17. The inferior vena cava is mildly dilated. 18. There is no pericardial effusion. RESPIRATORY CLINICIAN: Ana M Ho RDCS
--- NOTE | 2019-01-19 11:54 | P.CNPUL ---
History of Present Illness Consult date: 01/19/19 Requesting physician: Saji Purvis Reason for consult: other (Preoperative pulmonary clearance for) Chief complaint: Chest pain History of present illness: This is a 43-year-old white male, [id number] smoker, strong family history of premature coronary artery disease, no history of hypertension, no history of diabetes, patient presented to the ER yesterday with severe substernal chest discomfort. Patient felt a sudden onset of squeezing chest pain and discomfort associated with numbness in the right arm. It was also associated with diaphoresis and sweating. Upon presentation, his first set of troponin came back slightly elevated, EKG showed nonspecific changes in the inferior lateral leads but subsequent EKG showed T-wave inversion in the inferior lateral leads quite concerning for ischemia. Patient underwent cardiac catheterization, and it showed a critical disease involving the left main coronary artery in its proximal portion in the range of 99.9%. Patient was referred to cardiac surgery, and he will be scheduled for myocardial revascularization in the next 24 hours. Considering his smoking history, I was asked to see him on consultation for pulmonary clearance. Patient had no history to suggest underlying COPD, however he had a [id number] smoking history. And smoked until recently. Patient denies any cough no wheezing, no shortness of breath. Preoperative spirometry is pending. In the meantime the patient was given incentive spirometer, and instructed on its use. Chest x-ray on admission showed no active cardiopulmonary disease Review of Systems Constitutional: Negative for chills, fatigue and fever. HENT: Negative for congestion. Respiratory: Positive for chest tightness, negative for shortness of breath and wheezing. Negative for cough Cardiovascular: Negative for chest pain and palpitations. Gastrointestinal: Negative for abdominal pain. Negative for abdominal distention, diarrhea, nausea and vomiting. Genitourinary: Negative for dysuria. Musculoskeletal: Negative for back pain, neck pain and neck stiffness. Skin: Negative for color change. Neurological: Negative for dizziness, speech difficulty, weakness and light- headedness. Psychiatric/Behavioral: Negative for agitation and confusion. Negative for anxiety Hematologic: No history of clotting bleeding or bruising. Past Medical History Past Medical History: No Reported History History of Any Multi-Drug Resistant Organisms: None Reported Past Surgical History: Tonsillectomy Additional Past Surgical History / Comment(s): ear surgerys 7-[address], broken fingers, history of elevated liver enzymes while in , scarlet fever 3 times while younger Past Anesthesia/Blood Transfusion Reactions: No Reported Reaction Past Psychological History: No Psychological Hx Reported Smoking Status: Current every day smoker Past Alcohol Use History: Rare Past Drug Use History: None Reported - Past Family History Mother Additional Family Medical History / Comment(s): hypoglycemic Father Family Medical History: Chest Pain / Angina, Diabetes Mellitus, Myocardial Infarction ([place]) Additional Family Medical History / Comment(s): in his early 40s from heart disease, also grandfather and several uncles with premature heart disease Medications and Allergies Home Medications Medication Instructions Recorded Confirmed Type Ibuprofen [Motrin Ib] 1,000 mg PO Q8H 01/18/19 01/18/19 History Allergies Allergy/AdvReac Type Severity Reaction Status Date / Time No Known Allergies Allergy Verified 01/18/19 19:20 Physical Exam Vitals: Vital Signs Temp Pulse Resp BP Pulse Ox 01/19/19 10:00 75 22 133/83 96 01/19/19 09:00 78 16 139/81 97 01/19/19 08:00 98.0 F 73 19 125/94 97 01/19/19 07:00 65 18 123/80 96 01/19/19 06:00 62 13 122/84 95 01/19/19 05:00 67 15 109/76 95 01/19/19 04:00 97.9 F 66 18 99/59 93 L 01/19/19 03:00 68 19 107/72 93 L 01/19/19 02:30 76 12 123/86 94 L 01/19/19 02:00 74 21 133/92 94 L 01/19/19 01:30 71 22 127/94 94 L 01/19/19 01:00 70 16 133/93 96 01/19/19 00:45 75 12 97 01/19/19 00:30 77 22 134/102 97 01/19/19 00:15 74 13 97 01/19/19 00:00 83 12 150/100 97 01/18/19 23:45 78 12 96 01/18/19 23:40 97 01/18/19 23:38 76 18 96 01/18/19 23:30 97.5 F L 80 11 L 138/89 98 01/18/19 23:17 81 13 01/18/19 22:00 78 16 141/91 100 01/18/19 18:44 98.5 F 89 18 151/96 98 Intake and Output 01/18/19 01/19/19 01/19/19 22:59 06:59 14:59 Intake Total 100 1560 180 Output Total 525 350 Balance 100 1035 -170 Intake: IV 100 100 180 .9 kvo 20 mL/hour 80 Magnesium Sulfate-D5w Pmx 100 100 1 gm In Dextrose/Water 1 100ml.bag @ 100 mls/hr IVPB Q1H DARIN Rx#: [id number] Intake, IV Titration 620 Amount Sodium Chloride 0.9% 1, 620 000 ml @ 100 mls/hr IV . Q10H DARIN Rx#:[id number] Oral 840 Output: Urine 525 350 Other: Voiding Method Urinal Urinal # Voids 1 Weight 81.193 kg 84.2 kg Physical Exam: Revealed a 43-year-old white male pleasant in no distress. Head: Atraumatic, normocephalic. HEENT:[Neck is supple.] [No neck masses.] [No thyromegaly.] [No JVD.] PERRLA, EOMI, no icterus. Chest: [Clear throughout, no crackles, no rhonchi, no wheezes.] Cardiac Exam: [Normal S1 and S2, no S3 gallop, no murmur.] Abdomen: [Soft, nontender, no megaly, no rebound, no guarding, normal bowel sounds.] Extremities: [No clubbing, no edema, no cyanosis.] Neurological Exam: [No focal neurologic deficit.] Alert and oriented 3 Skin: No rashes. Lymphatics: No lymphadenopathy. Results - Laboratory Findings CBC and BMP: 01/19/19 04:18 01/19/19 04:18 PT/INR, D-dimer PT 10.1 sec (9.0-12.0) 01/19/19 04:18 INR 0.9 (<1.2) 01/19/19 04:18 D-Dimer 0.33 mg/L FEU (<0.60) 01/18/19 19:44 Abnormal lab findings: Abnormal Labs 01/18/19 01/18/19 01/18/19 19:44 19:44 19:44 WBC 11.3 H Chloride 111 H Glucose 102 H POC Glucose (mg/dL) AST 16 L ALT 19 L Troponin I 0.081 H* Total Protein 5.9 L Albumin HDL Cholesterol 01/18/19 01/18/19 01/19/19 19:44 23:16 02:22 WBC Chloride Glucose POC Glucose (mg/dL) 101 H AST ALT Troponin I 0.103 H* Total Protein Albumin HDL Cholesterol 32 L 01/19/19 01/19/19 04:18 08:33 WBC Chloride 111 H Glucose 142 H POC Glucose (mg/dL) AST 12 L ALT 20 L Troponin I 0.108 H* Total Protein 5.2 L Albumin 3.0 L HDL Cholesterol - Diagnostic Findings Chest x-ray: image reviewed (No evidence of active disease) Assessment and Plan Assessment: Impression: Acute non-ST elevation myocardial infarction Severe left main coronary artery disease History of smoking, tobacco dependence syndrome Significant family history for coronary artery disease. Recommendation: 1: Bedside spirometry was ordered 2: Instructed on the use of the incentive spirometer, and this was ordered 3: Echocardiogram was already ordered and is pending 4 place patient on bronchodilators in the form of DuoNeb, Awaiting the preoperative FEV1, patient will be cleared for myocardial revascularization as scheduled. We'll continue to follow Time with Patient: Greater than 30
[2019-01-19] MEDS ORDERED: MD COMMUNICATION TO PHARMACY 1 EACH MISC PO ONE (12:41)
--- NOTE | 2019-01-19 14:07 | P.PN ---
Subjective Progress Note Date: 01/19/19 The patient was seen and examined at the bedside in 01/19/2019. He reports no further episodes of chest pain, shortness of breath, nausea, or diaphoresis. He further denied any additional complaints. Objective - Vital Signs Vital signs: Vital Signs Temp 98.7 F 01/19/19 12:00 Pulse 75 01/19/19 12:00 Resp 13 01/19/19 12:00 BP 151/97 01/19/19 12:00 Pulse Ox 97 01/19/19 12:00 Intake & Output 01/18/19 01/19/19 01/19/19 18:59 06:59 18:59 Intake Total 1660 220 Output Total 525 450 Balance 1135 -230 Weight 81.193 kg 84.2 kg 84.2 kg Intake: IV 200 220 .9 kvo 20 mL/hour 120 Magnesium Sulfate-D5w Pmx 100 100 1 gm In Dextrose/Water 1 100ml.bag @ 100 mls/hr IVPB Q1H DARIN Rx#: [id number] Intake, IV Titration 620 Amount Sodium Chloride 0.9% 1, 620 000 ml @ 100 mls/hr IV . Q10H DARIN Rx#:[id number] Oral 840 Output: Urine 525 450 Other: Voiding Method Urinal Urinal # Voids 1 - Exam General: Non-toxic, in no acute distress, appears stated age, normal weight HEENT: NC/AT, anicteric sclerae, moist conjunctiva, no lid-lag, PERRLA Cardiovascular: S1/S2 wnl, no murmurs, rubs, or gallops Lungs: Clear to auscultation, normal respiratory effort, no accessory muscle use Abdominal: Soft, non-tender, non-distended, no guarding, rebound, or rigidity Skin: Warm, dry Extremities: No edema or contractures Psychiatric: Alert and oriented to person, place and time, appropriate affect Neuro: CN II-XII grossly intact, Strength 5/5 in all 4 extremities, Speech intact, Sensation to light touch grossly intact throughout - Labs CBC & Chem 7: 01/19/19 04:18 01/19/19 04:18 Labs: Abnormal Lab Results - Last 24 Hours (Table) 01/18/19 01/18/19 01/18/19 Range/Units 19:44 19:44 19:44 WBC 11.3 H (3.8-10.6) k/uL Chloride 111 H (98-107) mmol/L Glucose 102 H (74-99) mg/dL POC Glucose (mg/dL) (75-99) mg/dL AST 16 L (17-59) U/L ALT 19 L (21-72) U/L Troponin I 0.081 H* (0.000-0.034) ng/mL Total Protein 5.9 L (6.3-8.2) g/dL Albumin (3.5-5.0) g/dL HDL Cholesterol (40-60) mg/dL 01/18/19 01/18/19 01/19/19 Range/Units 19:44 23:16 02:22 WBC (3.8-10.6) k/uL Chloride (98-107) mmol/L Glucose (74-99) mg/dL POC Glucose (mg/dL) 101 H (75-99) mg/dL AST (17-59) U/L ALT (21-72) U/L Troponin I 0.103 H* (0.000-0.034) ng/mL Total Protein (6.3-8.2) g/dL Albumin (3.5-5.0) g/dL HDL Cholesterol 32 L (40-60) mg/dL 01/19/19 01/19/19 Range/Units 04:18 08:33 WBC (3.8-10.6) k/uL Chloride 111 H (98-107) mmol/L Glucose 142 H (74-99) mg/dL POC Glucose (mg/dL) (75-99) mg/dL AST 12 L (17-59) U/L ALT 20 L (21-72) U/L Troponin I 0.108 H* (0.000-0.034) ng/mL Total Protein 5.2 L (6.3-8.2) g/dL Albumin 3.0 L (3.5-5.0) g/dL HDL Cholesterol (40-60) mg/dL Assessment and Plan Plan: NSTEMI, status post cardiac catheterization revealing significant left main disease, CABG recommended -Cardiology recommendations appreciated -Patient currently scheduled tentatively for CABG on 01/21/2019 -Pre-op care as per the cardiothoracic surgery team -C/w the Heparin infusion, Lipitor, Aspirin, and Lopressor HTN -C/w Lopressor
[2019-01-19] MEDS ORDERED: HEPARIN SODIUM,PORCINE 5,000 UNIT/ML 1 ML VIAL IV STA (18:15)
[2019-01-19 18:40] LABS: Hemoglobin A1C 5.5 % (4.0-6.0)
[2019-01-19] MEDS: MUPIROCIN 2% OINT 22 GM TUBE NASAL SCH (20:46)
[2019-01-19] MEDS: ATORVASTATIN 80 MG TAB PO SCH (20:46)
[2019-01-19] MEDS ORDERED: ATORVASTATIN 80 MG TAB PO SCH (21:00)
[2019-01-20] MEDS: HEPARIN SOD,PORK IN 0.45% NACL 25,000 UNIT in 0.45% NACL 1 250ML.BAG IV SCH ×2 (00:07→21:05)
[2019-01-20 06:53] LABS: Basophils # (A) 0.1 k/uL (0-0.2); Basophils % (A) 1 %; Eosinophils # (A) 0.2 k/uL (0-0.7); Eosinophils % (A) 2 %; HCT 41.1 % (39.0-53.0); HGB 13.5 gm/dL (13.0-17.5); Lymphocytes # (A) 3.1 k/uL (1.0-4.8); Lymphocytes % (A) 31 %; MCH 30.4 pg (25.0-35.0); MCHC 32.9 g/dL (31.0-37.0); MCV 92.5 fL (80.0-100.0); Monocytes # (A) 0.7 k/uL (0-1.0); Monocytes % (A) 7 %; Neutrophils # (A) 5.8 k/uL (1.3-7.7); Neutrophils % (A) 59 %; Platelet Count 176 k/uL (150-450); RBC 4.45 m/uL (4.30-5.90); RDW 13.5 % (11.5-15.5); WBC 9.9 k/uL (3.8-10.6)
[2019-01-20 07:12] LABS: INR 0.9 (<1.2); Partial Thromboplastin Time 31.4 sec (22.0-30.0); Prothrombin Time 10.1 sec (9.0-12.0)
[2019-01-20 07:29] LABS: ALT 22 U/L (21-72); AST 12 U/L (17-59); Albumin 3.1 g/dL (3.5-5.0); Alkaline Phosphatase 53 U/L (38-126); Anion Gap 3 mmol/L; Blood Urea Nitrogen 11 mg/dL (9-20); Calcium 8.7 mg/dL (8.4-10.2); Carbon Dioxide 29 mmol/L (22-30); Chloride 109 mmol/L (98-107); Cholesterol 111 mg/dL (<200); Glucose 97 mg/dL (74-99); HDL Cholesterol 28 mg/dL (40-60); LDL Cholesterol,Calculated 52 mg/dL (0-99); Magnesium 1.8 mg/dL (1.6-2.3); Potassium 4.2 mmol/L (3.5-5.1); Sodium 141 mmol/L (137-145); Total Bilirubin 0.5 mg/dL (0.2-1.3); Total Protein 5.2 g/dL (6.3-8.2); Triglycerides 156 mg/dL (<150)
[2019-01-20] MEDS: MUPIROCIN 2% OINT 22 GM TUBE NASAL SCH ×2 (08:50→21:07)
[2019-01-20] MEDS: ASPIRIN 325 MG TAB PO SCH ×2 (08:50→20:06)
[2019-01-20] MEDS: METOPROLOL TARTRATE 25 MG TAB PO SCH ×2 (08:50→21:04)
--- NOTE | 2019-01-20 11:39 | P.PN ---
Subjective Progress Note Date: 01/20/19 The patient is a 43-year-old male, active smoker with no significant past medical history who presented to the ED with complaint of chest pain. The pain was substernal, squeezing in nature, 7 out of 10, with radiation to the right arm, with associated shortness of breath and diaphoresis, that began at 6 PM on the evening of presentation. The symptoms were nonexertional. The patient reported a significant family history of coronary artery disease. He also reported that he been having similar chest pain for the past month though it was never as severe. The patient underwent an extensive evaluation in the ED and was noted to have troponins elevated at 0.081, with EKG that showed dynamic changes during the ED course. The patient's troponins were 0.081, 0.103, and 0.108.The patient underwent an urgent cardiac catheterization which revealed a lesion in the ostium of the left main coronary artery in the range of 95%. Cardiology recommended coronary revascularization, and cardiothoracic surgery was consulted. The patient was scheduled for CABG tentatively for 01/21/2019. The patient was seen and examined at the bedside in 01/20/2019. He reports no further episodes of chest pain and continues to be symptom free. He is otherwise denying any active complaints including shortness of breath, fever, chills, nausea, vomiting, or abdominal pain. Objective - Vital Signs Vital signs: Vital Signs Temp 98.2 F 01/20/19 08:00 Pulse 68 01/20/19 08:00 Resp 18 01/20/19 08:00 BP 138/60 01/20/19 08:00 Pulse Ox 96 01/20/19 08:00 Intake & Output 01/19/19 01/20/19 01/20/19 18:59 06:59 18:59 Intake Total 421.516 23.897 572.262 Output Total 1250 1050 Balance -828.484 -1026.103 572.262 Weight 84.2 kg 83.2 kg Intake: IV 340 20 .9 kvo 20 mL/hour 240 20 Magnesium Sulfate-D5w Pmx 100 1 gm In Dextrose/Water 1 100ml.bag @ 100 mls/hr IVPB Q1H [facility] Rx#: [id number] Intake, IV Titration 81.516 3.897 92.262 Amount Heparin Sod,Pork in 0.45% 81.516 3.897 92.262 NaCl 25,000 unit In 0.45 % NaCl 1 250ml.bag @ 12 UNITS/KG/HR 9.743 mls/hr IV .Q24H [facility] Rx#: [id number] Oral 480 Output: Urine 1250 1050 Other: Voiding Method Urinal Urinal Urinal - Exam General: Non-toxic, in no acute distress, appears stated age, normal weight HEENT: NC/AT, anicteric sclerae, moist conjunctiva, no lid-lag, PERRLA Cardiovascular: S1/S2 wnl, no murmurs, rubs, or gallops Lungs: Clear to auscultation, normal respiratory effort, no accessory muscle use Abdominal: Soft, non-tender, non-distended, no guarding, rebound, or rigidity Skin: Warm, dry Extremities: No edema or contractures Psychiatric: Alert and oriented to person, place and time, appropriate affect Neuro: CN II-XII grossly intact, Strength 5/5 in all 4 extremities, Speech intact, Sensation to light touch grossly intact throughout - Labs CBC & Chem 7: 01/20/19 06:40 01/20/19 06:40 Labs: Abnormal Lab Results - Last 24 Hours (Table) 01/20/19 01/20/19 01/20/19 Range/Units 00:04 06:40 06:40 APTT 42.6 H (22.0-30.0) sec Chloride 109 H (98-107) mmol/L AST 12 L (17-59) U/L Total Protein 5.2 L (6.3-8.2) g/dL Albumin 3.1 L (3.5-5.0) g/dL Triglycerides 156 H (<150) mg/dL HDL Cholesterol 28 L (40-60) mg/dL Crossmatch See Detail 01/20/19 Range/Units 06:40 APTT 31.4 H (22.0-30.0) sec Chloride (98-107) mmol/L AST (17-59) U/L Total Protein (6.3-8.2) g/dL Albumin (3.5-5.0) g/dL Triglycerides (<150) mg/dL HDL Cholesterol (40-60) mg/dL Crossmatch Microbiology - Last 24 Hours (Table) 01/19/19 09:44 Nasal Screen MRSA/MSSA - Preliminary Nasal Swab 01/19/19 10:01 Urine Culture - Preliminary Urine,Voided Assessment and Plan Plan: NSTEMI, status post cardiac catheterization revealing significant left main disease, CABG recommended -Cardiology recommendations appreciated -Patient currently scheduled tentatively for CABG on 01/21/2019 -Pre-op care as per the cardiothoracic surgery team -C/w the Heparin infusion, Lipitor, Aspirin, and Lopressor HTN -C/w Lopressor We appreciate the opportunity to be involved in this patient's care. We will follow the patient along with you. Please feel free to contact the [facility] inpatient team for any further questions.
--- NOTE | 2019-01-20 12:53 | P.PN ---
Subjective Progress Note Date: 01/20/19 This is a pleasant 43-year-old gentleman with a past medical history significant for history of smoking as well as significant family history of coronary artery disease without any other comorbid conditions including hypertension, dyslipidemia, or diabetes, presented to the emergency room complaining of chest discomfort. He was in his usual state of health until earlier today when he was sitting at home working on his form when he started experiencing discomfort in the mid of the chest, as a squeezing sensation, the chest discomfort was associated with numbness in his lateral right arm. Also it was associated with some sweating. No shortness of breath, dizziness, heart racing, or syncope. Because of that the patient decided to come to the emergency room. In the emergency department he did have some chest discomfort. Subsequently it was resolved. The first set of troponin came in to be slightly elevated. The EKG initially showed sinus rhythm with nonspecific changes in the inferolateral leads but the subsequent EKG revealed sinus rhythm with T-wave inversion in the inferolateral leads quite concerning for ischemia. Because of that, patient was taken to the cardiac labor contract analyst. Cardiac catheterization revealed critical disease involving the left main coronary artery in its ostium/proximal portion with the disease appeared to be in the range of 99.9%. The patient was referred to be seen by a surgeon for the evaluation of coronary artery bypass grafting. Patient has been seen by cardiothoracic surgery and is scheduled to undergo coronary artery bypass grafting surgery tomorrow. At pressure 138/60 this morning, heart rate in the 60s, 96% on room air. White blood cell count 9.9, hemoglobin 13.5, platelet count 176. Sodium 142, potassium 4.2, BUN 11 and creatinine 0.9. Echocardiogram with Doppler study was performed which revealed an ejection fraction of 60-65%. Patient was seen and examined this morning, denied any chest pain, breathing overall has been stable. Objective - Vital Signs Vital signs: Vital Signs Temp 98.2 F 01/20/19 08:00 Pulse 68 01/20/19 08:00 Resp 18 01/20/19 08:00 BP 138/60 01/20/19 08:00 Pulse Ox 96 01/20/19 08:00 Intake & Output 01/19/19 01/20/19 01/20/19 18:59 06:59 18:59 Intake Total 421.516 23.897 572.262 Output Total 1250 1050 Balance -828.484 -1026.103 572.262 Weight 84.2 kg 83.2 kg Intake: IV 340 20 .9 kvo 20 mL/hour 240 20 Magnesium Sulfate-D5w Pmx 100 1 gm In Dextrose/Water 1 100ml.bag @ 100 mls/hr IVPB Q1H [facility] Rx#: [id number] Intake, IV Titration 81.516 3.897 92.262 Amount Heparin Sod,Pork in 0.45% 81.516 3.897 92.262 NaCl 25,000 unit In 0.45 % NaCl 1 250ml.bag @ 12 UNITS/KG/HR 9.743 mls/hr IV .Q24H [facility] Rx#: [id number] Oral 480 Output: Urine 1250 1050 Other: Voiding Method Urinal Urinal Urinal - Exam PHYSICAL EXAMINATION: GENERAL: 43-year-old gentleman in no acute distress at the time of my examination HEENT: Head is atraumatic, normocephalic. Pupils equal, round. Sclera anicteric. Conjunctiva are clear. Mucous membranes of the mouth are moist. Neck is supple. There is no elevated jugular venous pressure. No carotid bruit is heard. HEART EXAMINATION: Heart S1, S2 normal. No murmur or gallop heard. CHEST EXAMINATION: Lungs are clear to auscultation and precussion. No chest wall tenderness is noted on palpation or with deep breathing. ABDOMEN: Soft, nontender. Bowel sounds are heard. No organomegaly noted. EXTREMITIES: 2+ peripheral pulses with no evidence of peripheral edema and no calf tenderness noted. NEUROLOGIC patient is awake, alert and oriented X3. . - Labs CBC & Chem 7: 01/20/19 06:40 01/20/19 06:40 Labs: Abnormal Lab Results - Last 24 Hours (Table) 01/20/19 01/20/19 01/20/19 Range/Units 00:04 06:40 06:40 APTT 42.6 H (22.0-30.0) sec Chloride 109 H (98-107) mmol/L AST 12 L (17-59) U/L Total Protein 5.2 L (6.3-8.2) g/dL Albumin 3.1 L (3.5-5.0) g/dL Triglycerides 156 H (<150) mg/dL HDL Cholesterol 28 L (40-60) mg/dL Crossmatch See Detail 01/20/19 Range/Units 06:40 APTT 31.4 H (22.0-30.0) sec Chloride (98-107) mmol/L AST (17-59) U/L Total Protein (6.3-8.2) g/dL Albumin (3.5-5.0) g/dL Triglycerides (<150) mg/dL HDL Cholesterol (40-60) mg/dL Crossmatch Microbiology - Last 24 Hours (Table) 01/19/19 09:44 Nasal Screen MRSA/MSSA - Preliminary Nasal Swab 01/19/19 10:01 Urine Culture - Preliminary Urine,Voided Assessment and Plan Plan: Assessment #1 acute non-ST deviation myocardial infarction #2 severe left main coronary artery disease #3 history of smoking #4 significant family history of coronary artery disease Plan From cardiology's perspective, we'll continue the patient on his current medications including IV heparin. He is scheduled to undergo coronary artery bypass grafting surgery tomorrow. We'll continue to follow. DNP note has been reviewed, I agree with a documented findings and plan of care. Patient was seen and examined.
--- NOTE | 2019-01-20 13:05 | P.PN ---
Subjective Progress Note Date: 01/20/19 Principal diagnosis: Coronary artery disease, 99% left main lesion This is a 43-year-old white male, [id number] smoker, strong family history of premature coronary artery disease, no history of hypertension, no history of diabetes, patient presented to the ER yesterday with severe substernal chest discomfort. Patient felt a sudden onset of squeezing chest pain and discomfort associated with numbness in the right arm. It was also associated with diaphoresis and sweating. Upon presentation, his first set of troponin came back slightly elevated, EKG showed nonspecific changes in the inferior lateral leads but subsequent EKG showed T-wave inversion in the inferior lateral leads quite concerning for ischemia. Patient underwent cardiac catheterization, and it showed a critical disease involving the left main coronary artery in its proximal portion in the range of 99.9%. Patient was referred to cardiac surgery, and he will be scheduled for myocardial revascularization in the next 24 hours. Considering his smoking history, I was asked to see him on consultation for pulmonary clearance. Patient had no history to suggest underlying COPD, however he had a [id number] smoking history. And smoked until recently. Patient denies any cough no wheezing, no shortness of breath. Preoperative spirometry is pending. In the meantime the patient was given incentive spirometer, and instructed on its use. Chest x-ray on admission showed no active cardiopulmonary disease On 01/20/2090 patient seen again in follow-up on the selective care unit, he is resting comfortably in bed, in no acute distress, denies any chest pain, denies any gouty breathing, his lung sounds are clear, he is on room air, saturation is 96%, patient is on heparin drip, no acute events overnight. Patient is using his incentive spirometer, he is able to achieve 2500 on the today. Today's labs have been reviewed and are unremarkable. Patient is scheduled for surgery tomorrow for 2 possibly 3 aortocoronary bypasses Objective - Vital Signs Vital signs: Vital Signs Temp 98.2 F 01/20/19 08:00 Pulse 68 01/20/19 08:00 Resp 18 01/20/19 08:00 BP 138/60 01/20/19 08:00 Pulse Ox 96 01/20/19 08:00 Intake & Output 01/19/19 01/20/19 01/20/19 18:59 06:59 18:59 Intake Total 421.516 23.897 572.262 Output Total 1250 1050 Balance -828.484 -1026.103 572.262 Weight 84.2 kg 83.2 kg Intake: IV 340 20 .9 kvo 20 mL/hour 240 20 Magnesium Sulfate-D5w Pmx 100 1 gm In Dextrose/Water 1 100ml.bag @ 100 mls/hr IVPB Q1H [facility] Rx#: [id number] Intake, IV Titration 81.516 3.897 92.262 Amount Heparin Sod,Pork in 0.45% 81.516 3.897 92.262 NaCl 25,000 unit In 0.45 % NaCl 1 250ml.bag @ 12 UNITS/KG/HR 9.743 mls/hr IV .Q24H [facility] Rx#: [id number] Oral 480 Output: Urine 1250 1050 Other: Voiding Method Urinal Urinal Urinal - Exam GENERAL EXAM: Alert, pleasant, 43-year-old comfortable in no apparent distress. HEAD: Normocephalic/atraumatic. EYES: Normal reaction of pupils, equal size. Conjunctiva pink, sclera white. NOSE: Clear with pink turbinates. THROAT: No erythema or exudates. NECK: No masses, no JVD, no thyroid enlargement, no adenopathy. CHEST: No chest wall deformity. Symmetrical expansion. LUNGS: Equal air entry with no crackles, wheeze, rhonchi or dullness. CVS: Regular rate and rhythm, normal S1 and S2, no gallops, no murmurs, no rubs ABDOMEN: Soft, nontender. No hepatosplenomegaly, normal bowel sounds, no gua rding or rigidity. EXTREMITIES: No clubbing, no edema, no cyanosis, 2+ pulses and upper and lower extremities. MUSCULOSKELETAL: Muscle strength and tone normal. SPINE: No scoliosis or deformity SKIN: No rashes CENTRAL NERVOUS SYSTEM: Alert and oriented -3. No focal deficits, tone is normal in all 4 extremities. PSYCHIATRIC: Alert and oriented -3. Appropriate affect. Intact judgment and insight. - Labs CBC & Chem 7: 01/20/19 06:40 01/20/19 06:40 Labs: Abnormal Lab Results - Last 24 Hours (Table) 01/20/19 01/20/19 01/20/19 Range/Units 00:04 06:40 06:40 APTT 42.6 H (22.0-30.0) sec Chloride 109 H (98-107) mmol/L AST 12 L (17-59) U/L Total Protein 5.2 L (6.3-8.2) g/dL Albumin 3.1 L (3.5-5.0) g/dL Triglycerides 156 H (<150) mg/dL HDL Cholesterol 28 L (40-60) mg/dL Crossmatch See Detail 01/20/19 Range/Units 06:40 APTT 31.4 H (22.0-30.0) sec Chloride (98-107) mmol/L AST (17-59) U/L Total Protein (6.3-8.2) g/dL Albumin (3.5-5.0) g/dL Triglycerides (<150) mg/dL HDL Cholesterol (40-60) mg/dL Crossmatch Microbiology - Last 24 Hours (Table) 01/19/19 09:44 Nasal Screen MRSA/MSSA - Preliminary Nasal Swab 01/19/19 10:01 Urine Culture - Preliminary Urine,Voided Assessment and Plan Plan: Assessment: Acute non-ST elevation myocardial infarction Severe left main coronary artery disease History of smoking, tobacco dependence syndrome Significant family history for coronary artery disease. Recommendation: Patient denies any shortness of breath or chest pain, maintaining good O2 saturation on room air, no acute events overnight, awaiting results of the bedside PFT. No acute complaints, awaiting surgery tomorrow on 2018 with the possibility of 2 or 3 aortocoronary bypasses. I performed a history & physical examination of the patient and discussed their management with my nurse practitioner, Renu Quinones. I reviewed the nurse practitioner's note and agree with the documented findings and plan of care. Lung sounds are positive for clear breath sounds. The findings and the impression was discussed with the patient. I attest to the documentation by the nurse practitioner. Time with Patient: Less than 30
--- NOTE | 2019-01-20 13:25 | P.PN ---
Subjective Progress Note Date: 01/20/19 Principal diagnosis: Critical left main coronary artery disease, non-STEMI. Previous medical history of untreated hyperlipidemia, current tobacco dependence, mild COPD with preope rative FEV1 65% of predicted, and family history of premature coronary artery disease. The patient is currently sitting up in bed in no acute distress. Denies any chest pain or shortness of breath. Anticipates urgent CABG tomorrow. No new questions at this time. Objective - Vital Signs Vital signs: Vital Signs Temp 98.2 F 01/20/19 08:00 Pulse 68 01/20/19 08:00 Resp 18 01/20/19 08:00 BP 138/60 01/20/19 08:00 Pulse Ox 96 01/20/19 08:00 Intake & Output 01/19/19 01/20/19 01/20/19 18:59 06:59 18:59 Intake Total 421.516 23.897 572.262 Output Total 1250 1050 Balance -828.484 -1026.103 572.262 Weight 84.2 kg 83.2 kg Intake: IV 340 20 .9 kvo 20 mL/hour 240 20 Magnesium Sulfate-D5w Pmx 100 1 gm In Dextrose/Water 1 100ml.bag @ 100 mls/hr IVPB Q1H [facility] Rx#: [id number] Intake, IV Titration 81.516 3.897 92.262 Amount Heparin Sod,Pork in 0.45% 81.516 3.897 92.262 NaCl 25,000 unit In 0.45 % NaCl 1 250ml.bag @ 12 UNITS/KG/HR 9.743 mls/hr IV .Q24H [facility] Rx#: [id number] Oral 480 Output: Urine 1250 1050 Other: Voiding Method Urinal Urinal Urinal - Constitutional General appearance: Present: cooperative, no acute distress - Respiratory Details: Lungs sounds clear bilaterally. Respirations even, nonlabored. Currently on room air with oxygen saturation 96%. Able to achieve 2000 mL on his incentive spirometry. - Cardiovascular Details: S1, S2 present. Regular rate and rhythm, sinus rhythm on telemetry. Palpable peripheral pulses bilaterally. No edema present. No calf pain or tenderness noted. - Gastrointestinal Gastrointestinal Comment(s): Abdomen soft, nontender, nondistended. Active bowel sounds 4 quadrants. Tolerating diet. - Genitourinary Genitourinary Comment(s): Continues to void clear, yellow urine. - Integumentary Integumentary Comment(s): Skin is warm and dry with evidence of good perfusion. - Neurologic Neurologic: Present: CNII-XII intact - Musculoskeletal Musculoskeletal: Present: gait normal, strength equal bilaterally - Psychiatric Psychiatric: Present: A&O x's 3, appropriate affect, intact judgment & insight - Allied health notes Allied health notes reviewed: nursing - Labs CBC & Chem 7: 01/20/19 06:40 01/20/19 06:40 Labs: Abnormal Lab Results - Last 24 Hours (Table) 01/20/19 01/20/19 01/20/19 Range/Units 00:04 06:40 06:40 APTT 42.6 H (22.0-30.0) sec Chloride 109 H (98-107) mmol/L AST 12 L (17-59) U/L Total Protein 5.2 L (6.3-8.2) g/dL Albumin 3.1 L (3.5-5.0) g/dL Triglycerides 156 H (<150) mg/dL HDL Cholesterol 28 L (40-60) mg/dL Crossmatch See Detail 01/20/19 Range/Units 06:40 APTT 31.4 H (22.0-30.0) sec Chloride (98-107) mmol/L AST (17-59) U/L Total Protein (6.3-8.2) g/dL Albumin (3.5-5.0) g/dL Triglycerides (<150) mg/dL HDL Cholesterol (40-60) mg/dL Crossmatch Microbiology - Last 24 Hours (Table) 01/19/19 10:01 Urine Culture - Final Urine,Voided 01/19/19 09:44 Nasal Screen MRSA/MSSA - Preliminary Nasal Swab Assessment and Plan Assessment: 1. Critical left main stenosis 2. Non-STEMI 3. Hyperlipidemia 4. Current tobacco dependence 5. Mild COPD with preoperative FEV1 65% of predicted 6. Significant family history of premature coronary artery disease Plan: 1. Continue to maximize medical therapy with aspirin, statin, beta kimberly therapy. 2. Encourage incentive spirometry 10 times every hour while awake. 3. Increase activity ambulate as tolerated. 4. Our plan is for urgent coronary artery bypass graft surgery with left internal mammary artery, endoscopic vein harvesting, possible left radial artery harvest, and intraoperative transesophageal echocardiogram on tomorrow 01/21/[address] Balbuena. 5. 5 m walk test was completed, patient denied any chest pain. 6. Continue supportive care, continue to reinforce teaching. 7. Medical management per primary care, cardiology. 8. More recommendations to follow Time with Patient: Greater than 30
[2019-01-20 14:20] LABS: Hepatitis A Antibody IgM Non-Reactive (Non-Reactive); Hepatitis B Core IgM Non-Reactive (Non-Reactive)
[2019-01-20] MEDS: ATORVASTATIN 80 MG TAB PO SCH (21:04)
[2019-01-21] MEDS ORDERED: HEPARIN SODIUM 1,000 UN/ML (10ML VL) IV ONE (05:00)
[2019-01-21] MEDS ORDERED: SODIUM BICARB 8.4% 50 ML SYR (1 MEQ/ML) IV ONE (05:00)
[2019-01-21] MEDS ORDERED: ALBUMIN HUMAN 25% 50 ML in EMPTY BAG 1 BAG IVPB ONE (05:00)
[2019-01-21] MEDS ORDERED: PROPOFOL 1,000 MG in EMPTY BAG 1 BAG IV PRN (05:00)
[2019-01-21] MEDS ORDERED: MAGNESIUM SULFATE SYG 4.06 MEQ/ML SYRINGE IV ONE (05:00)
[2019-01-21] MEDS ORDERED: PROTAMINE SULFATE 10 MG/ML 25 ML VIAL IV ONE (05:00)
[2019-01-21] MEDS ORDERED: ceFAZolin 2,000 MG in SODIUM CHLORIDE 0.9% 30 ML IVPB ONE (05:00)
[2019-01-21] MEDS ORDERED: METOPROLOL TARTRATE 12.5 MG TAB PO ONE (05:00)
[2019-01-21] MEDS ORDERED: MANNITOL 25% 12.5 GM/50 ML VIAL IV ONE ×2 (05:00)
[2019-01-21] MEDS ORDERED: PAPAVERINE 360 MG in SODIUM CHLORIDE 0.9% 90 ML IV ONE (05:00)
[2019-01-21] MEDS ORDERED: PHENYLEPHRINE 40 MG in SODIUM CHLORIDE 0.9% 250 ML IV ONE (05:00)
[2019-01-21] MEDS ORDERED: DEXTROSE 5% IN WATER 1,000 ML with POTASSIUM CHLORIDE 110 MEQ, MAGNESIUM SULFATE 16 MEQ... IV SCH ×5 (05:00)
[2019-01-21] MEDS ORDERED: NITROGLYCERIN-D5W PMX 25 MG/250 ML BTL IV ONE (05:00)
[2019-01-21] MEDS ORDERED: INSULIN REGULAR 100 UNIT in SODIUM CHLORIDE 0.9% 100 ML IV SCH (05:00)
[2019-01-21] MEDS ORDERED: DILTIAZEM 125 MG in SODIUM CHLORIDE 0.9% 100 ML IV SCH ×2 (05:00→18:00)
[2019-01-21] MEDS ORDERED: HEPARIN SODIUM,PORCINE 5,000 UNIT in SODIUM CHLORIDE 0.9% 500 ML 500 ML IV ONE (05:00)
[2019-01-21] MEDS ORDERED: LACTATED RINGERS 1,000 ML IV SCH (05:00)
[2019-01-21] MEDS ORDERED: ATORVASTATIN 10 MG TAB PO ONE (05:00)
[2019-01-21] MEDS ORDERED: CHLORHEXIDINE GLUCONATE 15 ML CUP MUCOUS MEM ONE (05:00)
[2019-01-21] MEDS ORDERED: DEXTROSE 5% IN WATER 1,000 ML with POTASSIUM CHLORIDE 25 MEQ, SODIUM CHLORIDE 2.5MEQ/ML... IV SCH ×6 (05:00)
[2019-01-21] MEDS ORDERED: TRANEXAMIC ACID 2,000 MG in SODIUM CHLORIDE 0.9% 80 ML IV ONE ×2 (05:00→06:00)
[2019-01-21] MEDS ORDERED: NITROGLYCERIN-D5W PMX 50 MG in DEXTROSE/WATER 1 250ML.BAG IV SCH ×2 (05:00→17:40)
[2019-01-21] MEDS ORDERED: ceFAZolin 1,000 MG in SODIUM CHLORIDE 0.9% IRRIGATIO 1,000 ML IRRIGATION ONE (05:00)
[2019-01-21] MEDS ORDERED: CALCIUM CHLORIDE 100 MG/ML 10 ML SYRINGE IVP ONE (05:00)
[2019-01-21] MEDS ORDERED: ceFAZolin 2 GM in SODIUM CHLORIDE 0.9% 30 ML IVPB ONE (05:00)
[2019-01-21] MEDS ORDERED: ALBUMIN HUMAN 5% 500 ML in EMPTY BAG 1 BAG IVPB ONE ×6 (05:00)
[2019-01-21] MEDS ORDERED: PROTAMINE SULFATE 250 MG in EMPTY BAG 1 BAG IV ONE (05:00)
[2019-01-21] MEDS ORDERED: ASPIRIN 325 MG TAB PO ONE (05:00)
[2019-01-21] MEDS ORDERED: NOREPINEPHRINE 4 MG in SODIUM CHLORIDE 0.9% 250 ML IV SCH (05:00)
[2019-01-21] MEDS ORDERED: CLEVIDIPINE BUTYRATE 25 MG in EMPTY BAG 1 BAG IV SCH (05:00)
[2019-01-21 07:09] LABS: Basophils # (A) 0.1 k/uL (0-0.2); Basophils % (A) 1 %; Eosinophils # (A) 0.2 k/uL (0-0.7); Eosinophils % (A) 2 %; HCT 42.7 % (39.0-53.0); HGB 14.3 gm/dL (13.0-17.5); Lymphocytes # (A) 3.2 k/uL (1.0-4.8); Lymphocytes % (A) 32 %; MCH 30.5 pg (25.0-35.0); MCHC 33.6 g/dL (31.0-37.0); MCV 90.7 fL (80.0-100.0); Mean Platelet Volume 7.6; Monocytes # (A) 0.6 k/uL (0-1.0); Monocytes % (A) 6 %; Neutrophils # (A) 5.7 k/uL (1.3-7.7); Neutrophils % (A) 58 %; Platelet Count 205 k/uL (150-450); WBC 9.7 k/uL (3.8-10.6)
[2019-01-21 07:15] LABS: Partial Thromboplastin Time 61.2 sec (22.0-30.0); Prothrombin Time 10.3 sec (9.0-12.0)
[2019-01-21 08:13] LABS: ALT 34 U/L (21-72); AST 11 U/L (17-59); Alkaline Phosphatase 69 U/L (38-126); Anion Gap 7 mmol/L; Blood Urea Nitrogen 10 mg/dL (9-20); Calcium 9.1 mg/dL (8.4-10.2); Carbon Dioxide 27 mmol/L (22-30); Chloride 109 mmol/L (98-107); Glucose 97 mg/dL (74-99); Magnesium 1.8 mg/dL (1.6-2.3); Potassium 3.9 mmol/L (3.5-5.1); Sodium 143 mmol/L (137-145); Total Bilirubin 0.4 mg/dL (0.2-1.3); Total Protein 5.8 g/dL (6.3-8.2)
[2019-01-21 08:31] LABS: Albumin 3.5 g/dL (3.5-5.0)
[2019-01-21] MEDS ORDERED: IV FLUID CONTINUATION 1,000 ML IV ONE (08:32)
--- NOTE | 2019-01-21 09:03 | P.PN ---
Subjective Progress Note Date: 01/21/19 The patient is a 43-year-old male, active smoker with no significant past medical history who presented to the ED with complaint of chest pain. The pain was substernal, squeezing in nature, 7 out of 10, with radiation to the right arm, with associated shortness of breath and diaphoresis, that began at 6 PM on the evening of presentation. The symptoms were nonexertional. The patient reported a significant family history of coronary artery disease. He also reported that he been having similar chest pain for the past month though it was never as severe. The patient underwent an extensive evaluation in the ED and was noted to have troponins elevated at 0.081, with EKG that showed dynamic changes during the ED course. The patient's troponins were 0.081, 0.103, and 0.108.The patient underwent an urgent cardiac catheterization which revealed a lesion in the ostium of the left main coronary artery in the range of 95%. Cardiology recommended coronary revascularization, and cardiothoracic surgery was consulted. The patient was scheduled for CABG tentatively for 01/21/2019. The patient was seen and examined at the bedside in 01/21. He reports no additional chest pain, or SOB. Further denying nausea, vomiting, dizziness, diaphoresis, fever, cough, or chills. Objective - Vital Signs Vital signs: Vital Signs Temp 99.0 F 01/21/19 08:17 Pulse 58 L 01/21/19 08:17 Resp 16 01/21/19 08:17 BP 142/82 01/21/19 08:17 Pulse Ox 96 01/21/19 08:17 Intake & Output 01/20/19 01/21/19 01/21/19 18:59 06:59 18:59 Intake Total 1739.250 264.473 Balance 1739.250 264.473 Weight 82.6 kg Intake: IV 80 100 .9 kvo 20 mL/hour 80 100 Intake, IV Titration 219.250 64.473 Amount Heparin Sod,Pork in 0.45% 219.250 64.473 NaCl 25,000 unit In 0.45 % NaCl 1 250ml.bag @ 12 UNITS/KG/HR 9.743 mls/hr IV .Q24H [facility] Rx#: [id number] Oral 1440 100 Other: Voiding Method Urinal Urinal # Voids 5 2 - Exam General: Non-toxic, in no acute distress, appears stated age, normal weight HEENT: NC/AT, anicteric sclerae, moist conjunctiva, no lid-lag, PERRLA, o ropharynx clear Cardiovascular: S1/S2 wnl, no murmurs, rubs, or gallops Lungs: Clear to auscultation, normal respiratory effort, no accessory muscle use Abdominal: Soft, non-tender, non-distended, no guarding, rebound, or rigidity Skin: Warm, dry Extremities: No edema or contractures Psychiatric: Alert and oriented to person, place and time, appropriate affect Neuro: CN II-XII grossly intact, Strength 5/5 in all 4 extremities, Speech intact, Sensation to light touch grossly intact throughout - Labs CBC & Chem 7: 01/21/19 06:40 01/21/19 06:40 Labs: Abnormal Lab Results - Last 24 Hours (Table) 01/20/19 01/21/19 01/21/19 Range/Units 22:59 06:40 06:40 APTT 42.6 H 61.2 H (22.0-30.0) sec Chloride 109 H (98-107) mmol/L AST 11 L (17-59) U/L Total Protein 5.8 L (6.3-8.2) g/dL Microbiology - Last 24 Hours (Table) 01/19/19 09:44 Nasal Screen MRSA/MSSA - Final Nasal Swab 01/19/19 10:01 Urine Culture - Final Urine,Voided Assessment and Plan Plan: NSTEMI, status post cardiac catheterization revealing significant left main d isease -Undergoing CABG today -Cardiology recommendations appreciated -Pre-op care as per the cardiothoracic surgery team -C/w the Heparin infusion, Lipitor, Aspirin, and Lopressor HTN -C/w Lopressor
[2019-01-21] MEDS ORDERED: ELECTROLYTE-R (PH 7.4) 1,000 ML IV.SOLN IV ONE (09:49)
[2019-01-21] MEDS ORDERED: SODIUM CHLORIDE 0.9% 250 ML BAG ONE (09:49)
[2019-01-21] MEDS ORDERED: fentaNYL (PF) 50 MCG/ML 2 ML AMP ONE (09:49)
[2019-01-21] MEDS ORDERED: HEPARIN SODIUM,PORCINE 10,000 UNIT/ML 1 ML VIAL ONE (09:49)
[2019-01-21] MEDS ORDERED: LIDOCAINE 1% INJ 10MG/ML (20 ML MDV) ONE (09:49)
[2019-01-21] MEDS ORDERED: HEPARIN SODIUM,PORCINE 5,000 UNIT/ML 1 ML VIAL ONE (09:49)
[2019-01-21] MEDS ORDERED: MAGNESIUM SULFATE 4 MEQ/ML 10ML VIAL ONE (09:49)
[2019-01-21] MEDS ORDERED: VECURONIUM 10 MG VIAL IV ONE (09:49)
[2019-01-21] MEDS ORDERED: PHENYLEPHRINE-0.9% NACL SYG 1 MG/10 ML SYRINGE ONE (09:49)
[2019-01-21] MEDS ORDERED: DEXAMETHASONE SOD PHOS (MDV) 100 MG/10 ML VIAL ONE (09:49)
[2019-01-21] MEDS ORDERED: MIDAZOLAM 2 MG/2 ML VIAL ONE (09:49)
[2019-01-21] MEDS ORDERED: PROPOFOL 10 MG/ML 20 ML VIAL IV ONE (09:49)
[2019-01-21] MEDS ORDERED: LACTATED RINGERS 1,000 ML BAG IV ONE (09:49)
[2019-01-21] MEDS ORDERED: TRANEXAMIC ACID 1,000 MG/10 ML VIAL ONE (09:49)
[2019-01-21] MEDS ORDERED: fentaNYL (PF) 50 MCG/ML 50 ML VIAL ONE (09:49)
[2019-01-21] MEDS ORDERED: ePHEDrine SULFATE/0.9% NACL/PF 50 MG/5 ML SYRINGE IV ONE (09:49)
[2019-01-21 11:38] LABS: ABG Base Excess 2.5 mmol/L; ABG HCO3 27 mmol/L (21-25); ABG Oxygen Saturation 97.3 % (94-97); ABG PCO2 42 mmHg (35-45); ABG PH 7.42 (7.35-7.45); ABG PO2 86 mmHg (83-108); ABG Potassium Whole Blood 4.2 mmol/L (3.4-4.5); ABG Sodium Whole Blood 142 mmol/L (135-146); ABG TCO2 29 mmol/L (19-24)
[2019-01-21] MEDS ORDERED: PHENYLEPHRINE 10 MG/ML VIAL IV ONE (12:41)
[2019-01-21 12:46] LABS: ABG Base Excess 1.1 mmol/L; ABG HCO3 28 mmol/L (21-25); ABG PCO2 55 mmHg (35-45); ABG PH 7.32 (7.35-7.45); ABG PO2 141 mmHg (83-108); ABG Potassium Whole Blood 4.3 mmol/L (3.4-4.5); ABG Sodium Whole Blood 142 mmol/L (135-146); ABG TCO2 30 mmol/L (19-24)
[2019-01-21 13:42] LABS: ABG Base Excess -0.8 mmol/L; ABG HCO3 25 mmol/L (21-25); ABG PCO2 48 mmHg (35-45); ABG PH 7.33 (7.35-7.45); ABG Potassium Whole Blood 4.4 mmol/L (3.4-4.5); ABG Sodium Whole Blood 137 mmol/L (135-146); ABG TCO2 27 mmol/L (19-24)
[2019-01-21 14:13] LABS: ABG Base Excess 0.6 mmol/L; ABG HCO3 27 mmol/L (21-25); ABG Oxygen Saturation 99.9 % (94-97); ABG PCO2 48 mmHg (35-45); ABG PH 7.36 (7.35-7.45); ABG PO2 234 mmHg (83-108); ABG Potassium Whole Blood 5.9 mmol/L (3.4-4.5); ABG Sodium Whole Blood 136 mmol/L (135-146); ABG TCO2 28 mmol/L (19-24)
[2019-01-21 14:42] LABS: ABG Base Excess 0.4 mmol/L; ABG HCO3 26 mmol/L (21-25); ABG PCO2 44 mmHg (35-45); ABG PH 7.38 (7.35-7.45); ABG PO2 387 mmHg (83-108); ABG Sodium Whole Blood 137 mmol/L (135-146); ABG TCO2 27 mmol/L (19-24)
--- NOTE | 2019-01-21 14:51 | P.VSCSTY ---
Greater Saphenous Vein Mapping This is bilateral lower extremity greater saphenous vein mapping. Date of service 01/19/2019 Vein quality and ultrasound appearance no endoluminal thrombus or wall changes. Vein size groin right 4.8 x 4.3 groin left 5.6 x 4.0 High thigh right 3.7 x 3.6 high thigh left 2.7 x 2.2 Mid thigh right 2.4 x 2.1 mid thigh left 2.9 x 2.0 Above-knee right 3.7 x 3.0 above- knee left 2.2 x 2.1 Below knee right 2.3 x 1.6 below-knee left 2.1 x 1.8 Mid calf right 3.3 x 1.7 mid calf left 2.3 x 1.8 Ankle right 2.6 x 2.2 ankle left 3.8 x 2.5 Impression usable greater saphenous vein, bilaterally, right leg somewhat better size. Both sides a bit small..
[2019-01-21 15:41] LABS: ABG Base Excess 0.2 mmol/L; ABG HCO3 25 mmol/L (21-25); ABG PCO2 42 mmHg (35-45); ABG PH 7.39 (7.35-7.45); ABG PO2 341 mmHg (83-108); ABG Potassium Whole Blood 4.7 mmol/L (3.4-4.5); ABG Sodium Whole Blood 138 mmol/L (135-146); ABG TCO2 27 mmol/L (19-24)
--- NOTE | 2019-01-21 15:41 | P.ARTDOP ---
Arterial Doppler Bilateral radial artery study: Date of study: 01/20/2019 Reason for study: Preop CABG Doppler study with segmental pressures: No right to left or segmental pressure gradients Digital plethysmography with radial artery compression: Pressure change on the right of 47 mmHg and left 50 mmHg Imaging: Left side his all above 2 mm. Right side is just under 2 mm in its midportion. Impression: Does not qualify for radial artery harvest due to pressure changes with radial artery compression.
[2019-01-21 16:59] LABS: ABG PO2 >420 mmHg (83-108)
[2019-01-21 17:11] LABS: ABG Base Excess 1.1 mmol/L; ABG HCO3 27 mmol/L (21-25); ABG Oxygen Saturation 96.1 % (94-97); ABG PCO2 48 mmHg (35-45); ABG PH 7.36 (7.35-7.45); ABG PO2 79 mmHg (83-108); ABG Potassium Whole Blood 4.2 mmol/L (3.4-4.5); ABG Sodium Whole Blood 140 mmol/L (135-146); ABG TCO2 28 mmol/L (19-24)
[2019-01-21] MEDS ORDERED: DEXTROSE 5% IN WATER 100 ML with AMIODARONE 150 MG IV PRN (17:40)
[2019-01-21] MEDS ORDERED: Phosphorus Replacement Protoco 1 EACH MISC MISCELLANE PRN (17:40)
[2019-01-21] MEDS ORDERED: AMIODARONE 300 MG in DEXTROSE 5% IN WATER 250 ML IV PRN ×2 (17:40)
[2019-01-21] MEDS ORDERED: ONDANSETRON 4 MG/2 ML VIAL IVP PRN (17:40)
[2019-01-21] MEDS ORDERED: Potassium Replacement Protocol 1 EACH MISC MISCELLANE PRN (17:40)
[2019-01-21] MEDS ORDERED: BENZOCAINE/MENTHOL LOZENG 1 EACH LOZENGE MUCOUS MEM PRN (17:40)
[2019-01-21] MEDS ORDERED: AMIODARONE 360 MG in DEXTROSE 5% IN WATER 200 ML IV PRN ×2 (17:40)
[2019-01-21] MEDS ORDERED: METOCLOPRAMIDE 5 MG/ML 2 ML VIAL IVP PRN (17:40)
[2019-01-21] MEDS ORDERED: PROPOFOL 1,000 MG in EMPTY BAG 1 BAG IV SCH (17:40)
[2019-01-21] MEDS ORDERED: Magnesium Replacement Protocol 1 EACH MISC MISCELLANE PRN (17:40)
[2019-01-21] MEDS ORDERED: IPRATROPIUM-ALBUTEROL 3 ML NEB INHALATION PRN (17:40)
[2019-01-21] MEDS: LACTATED RINGERS 1,000 ML IV SCH (17:52)
[2019-01-21] MEDS ORDERED: CALCIUM GLUCONATE 2 GM in SODIUM CHLORIDE 0.9% 100 ML IVPB PRN (18:00)
[2019-01-21 18:07] LABS: Glucose,Whole Blood 99 mg/dL (75-99)
[2019-01-21 18:20] LABS: Basophils % (A) 0 %; Eosinophils # (A) 0.1 k/uL (0-0.7); Eosinophils % (A) 1 %; HCT 33.5 % (39.0-53.0); HGB 11.4 gm/dL (13.0-17.5); Lymphocytes # (A) 2.6 k/uL (1.0-4.8); Lymphocytes % (A) 25 %; MCH 31.3 pg (25.0-35.0); MCHC 34.2 g/dL (31.0-37.0); MCV 91.5 fL (80.0-100.0); Mean Platelet Volume 7.8; Monocytes # (A) 0.4 k/uL (0-1.0); Monocytes % (A) 4 %; Neutrophils # (A) 7.4 k/uL (1.3-7.7); Neutrophils % (A) 70 %; Platelet Count 115 k/uL (150-450); RBC 3.66 m/uL (4.30-5.90); RDW 14.3 % (11.5-15.5); WBC 10.6 k/uL (3.8-10.6)
[2019-01-21] MEDS: CLEVIDIPINE BUTYRATE 25 MG in EMPTY BAG 1 BAG IV SCH ×2 (18:25→20:14)
--- NOTE | 2019-01-21 18:30 | XR ---
EXAMINATION TYPE: XR chest 1V portable DATE OF EXAM: 01/21/2019 COMPARISON: 01/18/2019 HISTORY: Postop cardiac surgery TECHNIQUE: Single frontal view of the chest is obtained. FINDINGS: There is a left side chest tube. There are chest leads. No obvious pneumothorax. There is mild subcutaneous air on the left chest wall. Trachea is midline. There is right jugular catheter wit h the tip in the main pulmonary artery. Endotracheal tube is 4.5 cm from the cinda. There is nasogas tric tube in good position. There is no heart failure. IMPRESSION: No active cardiopulmonary disease.
[2019-01-21 18:33] LABS: ALT 21 U/L (21-72); AST 37 U/L (17-59); Albumin 2.4 g/dL (3.5-5.0); Alkaline Phosphatase 43 U/L (38-126); Anion Gap 2 mmol/L; Blood Urea Nitrogen 9 mg/dL (9-20); Calcium 7.9 mg/dL (8.4-10.2); Carbon Dioxide 26 mmol/L (22-30); Chloride 110 mmol/L (98-107); Glucose 89 mg/dL (74-99); Magnesium 2.6 mg/dL (1.6-2.3); Potassium 4.5 mmol/L (3.5-5.1); Sodium 138 mmol/L (137-145); Total Bilirubin 0.5 mg/dL (0.2-1.3); Total Protein 4.2 g/dL (6.3-8.2)
[2019-01-21 18:36] LABS: ABG Base Excess 1.2 mmol/L; ABG HCO3 28 mmol/L (21-25); ABG Oxygen Saturation 97.4 % (94-97); ABG PCO2 63 mmHg (35-45); ABG PH 7.26 (7.35-7.45); ABG PO2 110 mmHg (83-108); ABG TCO2 30 mmol/L (19-24)
[2019-01-21] MEDS: ACETAMINOPHEN IV (For NPO) 1,000 MG in EMPTY BAG 1 BAG IVPB SCH (18:53)
[2019-01-21 18:57] LABS: Glucose,Whole Blood 95 mg/dL (75-99)
[2019-01-21] MEDS ORDERED: IPRATROPIUM-ALBUTEROL 3 ML NEB INHALATION SCH (20:00)
[2019-01-21 20:16] LABS: Glucose,Whole Blood 157 mg/dL (75-99)
[2019-01-21] MEDS: MUPIROCIN 2% OINT 22 GM TUBE NASAL SCH (20:54)
[2019-01-21] MEDS: INSULIN REGULAR 100 UNIT in SODIUM CHLORIDE 0.9% 100 ML IV SCH (21:00)
[2019-01-21 21:11] LABS: Glucose,Whole Blood 131 mg/dL (75-99)
[2019-01-21 22:23] LABS: Glucose,Whole Blood 135 mg/dL (75-99)
[2019-01-21 22:25] LABS: Basophils % (A) 0 %; Eosinophils % (A) 0 %; HCT 38.3 % (39.0-53.0); HGB 12.6 gm/dL (13.0-17.5); Lymphocytes # (A) 0.9 k/uL (1.0-4.8); Lymphocytes % (A) 6 %; MCH 30.8 pg (25.0-35.0); MCHC 32.8 g/dL (31.0-37.0); Mean Platelet Volume 7.8; Monocytes # (A) 0.3 k/uL (0-1.0); Monocytes % (A) 2 %; Neutrophils # (A) 12.2 k/uL (1.3-7.7); Neutrophils % (A) 91 %; Platelet Count 148 k/uL (150-450); RBC 4.07 m/uL (4.30-5.90); RDW 13.6 % (11.5-15.5); WBC 13.4 k/uL (3.8-10.6)
[2019-01-21 22:32] LABS: Partial Thromboplastin Time 30.2 sec (22.0-30.0); Prothrombin Time 10.3 sec (9.0-12.0)
[2019-01-21] MEDS ORDERED: MILRINONE-D5W PMX 20 MG in DEXTROSE/WATER 1 100ML.BAG IV SCH (23:00)
[2019-01-21 23:01] LABS: ABG Base Excess 2.9 mmol/L; ABG HCO3 28 mmol/L (21-25); ABG Oxygen Saturation 98.5 % (94-97); ABG PCO2 47 mmHg (35-45); ABG PH 7.38 (7.35-7.45); ABG PO2 115 mmHg (83-108); ABG TCO2 30 mmol/L (19-24)
[2019-01-21 23:29] LABS: ABG Base Excess 2.8 mmol/L; ABG HCO3 28 mmol/L (21-25); ABG Oxygen Saturation 98.6 % (94-97); ABG PCO2 51 mmHg (35-45); ABG PH 7.35 (7.35-7.45); ABG PO2 120 mmHg (83-108); ABG TCO2 30 mmol/L (19-24)
[2019-01-21 23:32] LABS: Glucose,Whole Blood 112 mg/dL (75-99)
[2019-01-21] MEDS: IPRATROPIUM-ALBUTEROL 3 ML NEB INHALATION SCH (23:58)
[2019-01-22 00:03] LABS: Basophils % (A) 0 %; Eosinophils % (A) 0 %; HCT 38.8 % (39.0-53.0); HGB 12.8 gm/dL (13.0-17.5); Lymphocytes # (A) 0.8 k/uL (1.0-4.8); Lymphocytes % (A) 5 %; MCH 30.5 pg (25.0-35.0); MCHC 33.1 g/dL (31.0-37.0); MCV 92.2 fL (80.0-100.0); Mean Platelet Volume 7.6; Monocytes # (A) 0.4 k/uL (0-1.0); Monocytes % (A) 3 %; Neutrophils # (A) 13.1 k/uL (1.3-7.7); Neutrophils % (A) 91 %; Platelet Count 139 k/uL (150-450); RDW 13.7 % (11.5-15.5); WBC 14.3 k/uL (3.8-10.6)
[2019-01-22] MEDS: ceFAZolin IN SWFI 2 GM/20 ML SYRINGE IVP SCH ×3 (00:11→16:05)
[2019-01-22] MEDS: HEPARIN SODIUM,PORCINE 5,000 UNIT/ML 1 ML VIAL SQ SCH ×4 (00:12→23:56)
[2019-01-22] MEDS: ACETAMINOPHEN IV (For NPO) 1,000 MG in EMPTY BAG 1 BAG IVPB SCH (00:12)
[2019-01-22 00:23] LABS: Glucose,Whole Blood 150 mg/dL (75-99)
[2019-01-22 01:22] LABS: Glucose,Whole Blood 131 mg/dL (75-99)
[2019-01-22] MEDS: ALBUMIN HUMAN 5% 250 ML in EMPTY BAG 1 BAG IVPB PRN ×4 (01:57→05:06)
[2019-01-22 02:07] LABS: Glucose,Whole Blood 137 mg/dL (75-99)
[2019-01-22 03:04] LABS: Glucose,Whole Blood 149 mg/dL (75-99)
[2019-01-22 03:55] LABS: Glucose,Whole Blood 146 mg/dL (75-99)
[2019-01-22 05:01] LABS: Basophils % (A) 0 %; Eosinophils % (A) 0 %; HCT 33.1 % (39.0-53.0); HGB 11.3 gm/dL (13.0-17.5); Lymphocytes # (A) 0.8 k/uL (1.0-4.8); Lymphocytes % (A) 6 %; MCH 31.6 pg (25.0-35.0); MCHC 34.1 g/dL (31.0-37.0); MCV 92.6 fL (80.0-100.0); Mean Platelet Volume 8.2; Monocytes # (A) 0.4 k/uL (0-1.0); Monocytes % (A) 3 %; Neutrophils # (A) 11.9 k/uL (1.3-7.7); Neutrophils % (A) 90 %; Platelet Count 132 k/uL (150-450); RBC 3.57 m/uL (4.30-5.90); RDW 13.6 % (11.5-15.5); WBC 13.2 k/uL (3.8-10.6)
[2019-01-22 05:02] LABS: Glucose,Whole Blood 151 mg/dL (75-99)
[2019-01-22 05:07] LABS: Ionized Calcium 4.7 mg/dL (4.5-5.3)
[2019-01-22 05:22] LABS: ALT 24 U/L (21-72); AST 47 U/L (17-59); Albumin 3.7 g/dL (3.5-5.0); Alkaline Phosphatase 50 U/L (38-126); Anion Gap 6 mmol/L; Blood Urea Nitrogen 11 mg/dL (9-20); Calcium 8.5 mg/dL (8.4-10.2); Carbon Dioxide 29 mmol/L (22-30); Chloride 105 mmol/L (98-107); Glucose 138 mg/dL (74-99); Potassium 5.5 mmol/L (3.5-5.1); Sodium 140 mmol/L (137-145); Total Bilirubin 0.4 mg/dL (0.2-1.3); Total Protein 5.5 g/dL (6.3-8.2)
[2019-01-22 06:20] LABS: Glucose,Whole Blood 152 mg/dL (75-99)
[2019-01-22 06:55] LABS: Glucose,Whole Blood 140 mg/dL (75-99)
[2019-01-22] MEDS: IPRATROPIUM-ALBUTEROL 3 ML NEB INHALATION SCH ×4 (07:31→19:19)
--- NOTE | 2019-01-22 07:32 | P.PN ---
Subjective Progress Note Date: 01/22/19 Principal diagnosis: Acute non-ST deviation MD This is a pleasant 43-year-old gentleman with history of smoking and significant family history of coronary artery disease presented to the emergency room with a chest discomfort and he was found to have mildly abnormal cardiac enzymes as well as ST changes in the inferolateral leads highly suggestive of severe underlying coronary artery disease. Because of that the patient underwent a heart catheterization last night showed critical disease involving the left main coronary artery. He underwent coronary artery bypass grafting 3 with VELASQUEZ to LAD, radial to OM, and vein graft to RCA. On follow-up with the patient today, January 222018, this is his post operation day #1. Clinically he is doing good. He was extubated last night. He continues to be in normal sinus mechanism. He is on Primacor and also he is on Cardizem IV for the radial graft. He is on dual antiplatelet therapy along with a statin as well as metoprolol. Objective - Vital Signs Vital signs: Vital Signs Temp 36.2 F L 01/21/19 18:00 Pulse 80 01/22/19 07:00 Resp 21 01/22/19 07:00 BP 124/77 01/22/19 07:00 Pulse Ox 97 01/22/19 07:00 Intake & Output 01/21/19 01/22/19 01/22/19 18:59 06:59 18:59 Intake Total 068.117 3456.744 Output Total 1675 1727 Balance -1561.600 371.744 Weight 86.5 kg Intake: IV 109.5 1996.5 Albumin Human 25% 50 ml 1000 In Empty Bag 1 bag @ 100 mls/hr IVPB ONCE ONE Rx#: [id number] CO/CI 200 Diltiazem 125 mg In 5 42.5 Sodium Chloride 0.9% 100 ml @ 5 MG/HR 5 mls/hr IV .Q24H DARIN Rx#:[id number] Lactated Ringers 1,000 ml 50 605 @ 50 mls/hr IV .Q20H DARIN Rx#:[id number] Nitroglycerin-D5w Pmx 50 1.5 65 mg In Dextrose/Water 1 250ml.bag @ 5 MCG/MIN 1.5 mls/hr IV .Q24H DARIN Rx#: [id number] Pressure bag 84 Intake, IV Titration 3.900 102.244 Amount Clevidipine Butyrate 25 3.900 42.533 mg In Empty Bag 1 bag @ 1 MG/HR 2 mls/hr IV .Q24H DARIN Rx#:[id number] Insulin Regular 100 unit 6.640 In Sodium Chloride 0.9% 100 ml @ Per Protocol IV .Q0M DARIN Rx#:[id number] Propofol 1,000 mg In 53.071 Empty Bag 1 bag @ Titrate IV .Q0M DARIN Rx#: [id number] Output: Chest Tube Drainage 35 327 Chest Tube Bilateral 35 265 Mediastinal Chest Tube Left Lateral 0 62 Chest Urine 640 1400 Estimated Blood Loss 1000 Other: Voiding Method Indwelling Catheter Indwelling Catheter ABP, PAP, CO, CI - Last Documented Arterial Blood Pressure 147/74 Pulmonary Artery Pressure 19/8 Cardiac Output 6.4 Cardiac Index 3.1 - Constitutional General appearance: Present: no acute distress - Respiratory Respiratory: bilateral: CTA - Cardiovascular Rhythm: regular Heart sounds: normal: S1, S2 - Labs CBC & Chem 7: 01/22/19 04:44 01/22/19 04:44 Labs: Abnormal Lab Results - Last 24 Hours (Table) 01/20/19 01/21/19 01/21/19 Range/Units 06:40 06:40 11:38 WBC (3.8-10.6) k/uL RBC (4.30-5.90) m/uL Hgb (13.0-17.5) gm/dL Hct (39.0-53.0) % Plt Count (150-450) k/uL Neutrophils # (1.3-7.7) k/uL Lymphocytes # (1.0-4.8) k/uL APTT (22.0-30.0) sec ABG pH (7.35-7.45) ABG pCO2 (35-45) mmHg ABG pO2 (83-108) mmHg ABG HCO3 27 H (21-25) mmol/L ABG Total CO2 29 H (19-24) mmol/L ABG O2 Saturation 97.3 H (94-97) % ABG Hematocrit (34.0-46.0) % ABG Potassium (3.4-4.5) mmol/L ABG Ionized Calcium (4.5-5.3) mg/dL ABG Glucose 106 H (75-99) mg/dL ABG Lactic Acid (0.5-1.6) mmol/L Hemoglobin (13.0-17.5) gm/dL Potassium (3.5-5.1) mmol/L Chloride 109 H (98-107) mmol/L Glucose (74-99) mg/dL POC Glucose (mg/dL) (75-99) mg/dL Calcium (8.4-10.2) mg/dL Magnesium (1.6-2.3) mg/dL AST 11 L (17-59) U/L Total Protein 5.8 L (6.3-8.2) g/dL Albumin (3.5-5.0) g/dL Arterial Blood Potassium (3.4-4.5) mmol/L Arterial Blood Glucose 106 H (75-99) mg/dL Crossmatch See Detail 01/21/19 01/21/19 01/21/19 Range/Units 12:46 13:43 14:13 WBC (3.8-10.6) k/uL RBC (4.30-5.90) m/uL Hgb (13.0-17.5) gm/dL Hct (39.0-53.0) % Plt Count (150-450) k/uL Neutrophils # (1.3-7.7) k/uL Lymphocytes # (1.0-4.8) k/uL APTT (22.0-30.0) sec ABG pH 7.32 L 7.33 L (7.35-7.45) ABG pCO2 55 H 48 H 48 H (35-45) mmHg ABG pO2 141 H >420 H 234 H (83-108) mmHg ABG HCO3 28 H 27 H (21-25) mmol/L ABG Total CO2 30 H 27 H 28 H (19-24) mmol/L ABG O2 Saturation 99.0 H 100.0 H 99.9 H (94-97) % ABG Hematocrit 33 L 30 L (34.0-46.0) % ABG Potassium 5.9 H (3.4-4.5) mmol/L ABG Ionized Calcium 4.1 L 4.3 L (4.5-5.3) mg/dL ABG Glucose 122 H 118 H 232 H (75-99) mg/dL ABG Lactic Acid (0.5-1.6) mmol/L Hemoglobin 10.6 L 9.8 L (13.0-17.5) gm/dL Potassium (3.5-5.1) mmol/L Chloride (98-107) mmol/L Glucose (74-99) mg/dL POC Glucose (mg/dL) (75-99) mg/dL Calcium (8.4-10.2) mg/dL Magnesium (1.6-2.3) mg/dL AST (17-59) U/L Total Protein (6.3-8.2) g/dL Albumin (3.5-5.0) g/dL Arterial Blood Potassium 5.9 H (3.4-4.5) mmol/L Arterial Blood Glucose 122 H 118 H 232 H (75-99) mg/dL Crossmatch 01/21/19 01/21/19 01/21/19 Range/Units 14:42 15:41 17:11 WBC (3.8-10.6) k/uL RBC (4.30-5.90) m/uL Hgb (13.0-17.5) gm/dL Hct (39.0-53.0) % Plt Count (150-450) k/uL Neutrophils # (1.3-7.7) k/uL Lymphocytes # (1.0-4.8) k/uL APTT (22.0-30.0) sec ABG pH (7.35-7.45) ABG pCO2 48 H (35-45) mmHg ABG pO2 387 H 341 H 79 L (83-108) mmHg ABG HCO3 26 H 27 H (21-25) mmol/L ABG Total CO2 27 H 27 H 28 H (19-24) mmol/L ABG O2 Saturation 100.0 H 100.0 H (94-97) % ABG Hematocrit 30 L 28 L 30 L (34.0-46.0) % ABG Potassium 5.0 H 4.7 H (3.4-4.5) mmol/L ABG Ionized Calcium 4.3 L 4.3 L (4.5-5.3) mg/dL ABG Glucose 203 H 190 H 116 H (75-99) mg/dL ABG Lactic Acid 2.3 H* (0.5-1.6) mmol/L Hemoglobin 9.7 L 9.3 L 9.8 L (13.0-17.5) gm/dL Potassium (3.5-5.1) mmol/L Chloride (98-107) mmol/L Glucose (74-99) mg/dL POC Glucose (mg/dL) (75-99) mg/dL Calcium (8.4-10.2) mg/dL Magnesium (1.6-2.3) mg/dL AST (17-59) U/L Total Protein (6.3-8.2) g/dL Albumin (3.5-5.0) g/dL Arterial Blood Potassium 5.0 H 4.7 H (3.4-4.5) mmol/L Arterial Blood Glucose 203 H 190 H 116 H (75-99) mg/dL Crossmatch 01/21/19 01/21/19 01/21/19 Range/Units 17:40 17:40 18:30 WBC (3.8-10.6) k/uL RBC 3.66 L (4.30-5.90) m/uL Hgb 11.4 L (13.0-17.5) gm/dL Hct 33.5 L (39.0-53.0) % Plt Count 115 L (150-450) k/uL Neutrophils # (1.3-7.7) k/uL Lymphocytes # (1.0-4.8) k/uL APTT (22.0-30.0) sec ABG pH 7.26 L (7.35-7.45) ABG pCO2 63 H (35-45) mmHg ABG pO2 110 H (83-108) mmHg ABG HCO3 28 H (21-25) mmol/L ABG Total CO2 30 H (19-24) mmol/L ABG O2 Saturation 97.4 H (94-97) % ABG Hematocrit (34.0-46.0) % ABG Potassium (3.4-4.5) mmol/L ABG Ionized Calcium (4.5-5.3) mg/dL ABG Glucose (75-99) mg/dL ABG Lactic Acid (0.5-1.6) mmol/L Hemoglobin (13.0-17.5) gm/dL Potassium (3.5-5.1) mmol/L Chloride 110 H (98-107) mmol/L Glucose (74-99) mg/dL POC Glucose (mg/dL) (75-99) mg/dL Calcium 7.9 L (8.4-10.2) mg/dL Magnesium 2.6 H (1.6-2.3) mg/dL AST (17-59) U/L Total Protein 4.2 L (6.3-8.2) g/dL Albumin 2.4 L (3.5-5.0) g/dL Arterial Blood Potassium (3.4-4.5) mmol/L Arterial Blood Glucose (75-99) mg/dL Crossmatch 01/21/19 01/21/19 01/21/19 Range/Units 20:01 20:38 20:45 WBC 13.4 H (3.8-10.6) k/uL RBC 4.07 L (4.30-5.90) m/uL Hgb 12.6 L (13.0-17.5) gm/dL Hct 38.3 L (39.0-53.0) % Plt Count 148 L (150-450) k/uL Neutrophils # 12.2 H (1.3-7.7) k/uL Lymphocytes # 0.9 L (1.0-4.8) k/uL APTT 30.2 H (22.0-30.0) sec ABG pH (7.35-7.45) ABG pCO2 (35-45) mmHg ABG pO2 (83-108) mmHg ABG HCO3 (21-25) mmol/L ABG Total CO2 (19-24) mmol/L ABG O2 Saturation (94-97) % ABG Hematocrit (34.0-46.0) % ABG Potassium (3.4-4.5) mmol/L ABG Ionized Calcium (4.5-5.3) mg/dL ABG Glucose (75-99) mg/dL ABG Lactic Acid (0.5-1.6) mmol/L Hemoglobin (13.0-17.5) gm/dL Potassium (3.5-5.1) mmol/L Chloride (98-107) mmol/L Glucose (74-99) mg/dL POC Glucose (mg/dL) 157 H (75-99) mg/dL Calcium (8.4-10.2) mg/dL Magnesium (1.6-2.3) mg/dL AST (17-59) U/L Total Protein (6.3-8.2) g/dL Albumin (3.5-5.0) g/dL Arterial Blood Potassium (3.4-4.5) mmol/L Arterial Blood Glucose (75-99) mg/dL Crossmatch 01/21/19 01/21/19 01/21/19 Range/Units 21:08 22:08 23:00 WBC (3.8-10.6) k/uL RBC (4.30-5.90) m/uL Hgb (13.0-17.5) gm/dL Hct (39.0-53.0) % Plt Count (150-450) k/uL Neutrophils # (1.3-7.7) k/uL Lymphocytes # (1.0-4.8) k/uL APTT (22.0-30.0) sec ABG pH (7.35-7.45) ABG pCO2 47 H (35-45) mmHg ABG pO2 115 H (83-108) mmHg ABG HCO3 28 H (21-25) mmol/L ABG Total CO2 30 H (19-24) mmol/L ABG O2 Saturation 98.5 H (94-97) % ABG Hematocrit (34.0-46.0) % ABG Potassium (3.4-4.5) mmol/L ABG Ionized Calcium (4.5-5.3) mg/dL ABG Glucose (75-99) mg/dL ABG Lactic Acid (0.5-1.6) mmol/L Hemoglobin (13.0-17.5) gm/dL Potassium (3.5-5.1) mmol/L Chloride (98-107) mmol/L Glucose (74-99) mg/dL POC Glucose (mg/dL) 131 H 135 H (75-99) mg/dL Calcium (8.4-10.2) mg/dL Magnesium (1.6-2.3) mg/dL AST (17-59) U/L Total Protein (6.3-8.2) g/dL Albumin (3.5-5.0) g/dL Arterial Blood Potassium (3.4-4.5) mmol/L Arterial Blood Glucose (75-99) mg/dL Crossmatch 01/21/19 01/21/19 01/21/19 Range/Units 23:18 23:24 23:34 WBC 14.3 H (3.8-10.6) k/uL RBC 4.20 L (4.30-5.90) m/uL Hgb 12.8 L (13.0-17.5) gm/dL Hct 38.8 L (39.0-53.0) % Plt Count 139 L (150-450) k/uL Neutrophils # 13.1 H (1.3-7.7) k/uL Lymphocytes # 0.8 L (1.0-4.8) k/uL APTT (22.0-30.0) sec ABG pH (7.35-7.45) ABG pCO2 51 H (35-45) mmHg ABG pO2 120 H (83-108) mmHg ABG HCO3 28 H (21-25) mmol/L ABG Total CO2 30 H (19-24) mmol/L ABG O2 Saturation 98.6 H (94-97) % ABG Hematocrit (34.0-46.0) % ABG Potassium (3.4-4.5) mmol/L ABG Ionized Calcium (4.5-5.3) mg/dL ABG Glucose (75-99) mg/dL ABG Lactic Acid (0.5-1.6) mmol/L Hemoglobin (13.0-17.5) gm/dL Potassium (3.5-5.1) mmol/L Chloride (98-107) mmol/L Glucose (74-99) mg/dL POC Glucose (mg/dL) 112 H (75-99) mg/dL Calcium (8.4-10.2) mg/dL Magnesium (1.6-2.3) mg/dL AST (17-59) U/L Total Protein (6.3-8.2) g/dL Albumin (3.5-5.0) g/dL Arterial Blood Potassium (3.4-4.5) mmol/L Arterial Blood Glucose (75-99) mg/dL Crossmatch 01/22/19 01/22/19 01/22/19 Range/Units 00:08 01:08 02:05 WBC (3.8-10.6) k/uL RBC (4.30-5.90) m/uL Hgb (13.0-17.5) gm/dL Hct (39.0-53.0) % Plt Count (150-450) k/uL Neutrophils # (1.3-7.7) k/uL Lymphocytes # (1.0-4.8) k/uL APTT (22.0-30.0) sec ABG pH (7.35-7.45) ABG pCO2 (35-45) mmHg ABG pO2 (83-108) mmHg ABG HCO3 (21-25) mmol/L ABG Total CO2 (19-24) mmol/L ABG O2 Saturation (94-97) % ABG Hematocrit (34.0-46.0) % ABG Potassium (3.4-4.5) mmol/L ABG Ionized Calcium (4.5-5.3) mg/dL ABG Glucose (75-99) mg/dL ABG Lactic Acid (0.5-1.6) mmol/L Hemoglobin (13.0-17.5) gm/dL Potassium (3.5-5.1) mmol/L Chloride (98-107) mmol/L Glucose (74-99) mg/dL POC Glucose (mg/dL) 150 H 131 H 137 H (75-99) mg/dL Calcium (8.4-10.2) mg/dL Magnesium (1.6-2.3) mg/dL AST (17-59) U/L Total Protein (6.3-8.2) g/dL Albumin (3.5-5.0) g/dL Arterial Blood Potassium (3.4-4.5) mmol/L Arterial Blood Glucose (75-99) mg/dL Crossmatch 01/22/19 01/22/19 01/22/19 Range/Units 03:02 03:53 04:44 WBC 13.2 H (3.8-10.6) k/uL RBC 3.57 L (4.30-5.90) m/uL Hgb 11.3 L (13.0-17.5) gm/dL Hct 33.1 L (39.0-53.0) % Plt Count 132 L (150-450) k/uL Neutrophils # 11.9 H (1.3-7.7) k/uL Lymphocytes # 0.8 L (1.0-4.8) k/uL APTT (22.0-30.0) sec ABG pH (7.35-7.45) ABG pCO2 (35-45) mmHg ABG pO2 (83-108) mmHg ABG HCO3 (21-25) mmol/L ABG Total CO2 (19-24) mmol/L ABG O2 Saturation (94-97) % ABG Hematocrit (34.0-46.0) % ABG Potassium (3.4-4.5) mmol/L ABG Ionized Calcium (4.5-5.3) mg/dL ABG Glucose (75-99) mg/dL ABG Lactic Acid (0.5-1.6) mmol/L Hemoglobin (13.0-17.5) gm/dL Potassium (3.5-5.1) mmol/L Chloride (98-107) mmol/L Glucose (74-99) mg/dL POC Glucose (mg/dL) 149 H 146 H (75-99) mg/dL Calcium (8.4-10.2) mg/dL Magnesium (1.6-2.3) mg/dL AST (17-59) U/L Total Protein (6.3-8.2) g/dL Albumin (3.5-5.0) g/dL Arterial Blood Potassium (3.4-4.5) mmol/L Arterial Blood Glucose (75-99) mg/dL Crossmatch 01/22/19 01/22/19 01/22/19 Range/Units 04:44 05:00 06:06 WBC (3.8-10.6) k/uL RBC (4.30-5.90) m/uL Hgb (13.0-17.5) gm/dL Hct (39.0-53.0) % Plt Count (150-450) k/uL Neutrophils # (1.3-7.7) k/uL Lymphocytes # (1.0-4.8) k/uL APTT (22.0-30.0) sec ABG pH (7.35-7.45) ABG pCO2 (35-45) mmHg ABG pO2 (83-108) mmHg ABG HCO3 (21-25) mmol/L ABG Total CO2 (19-24) mmol/L ABG O2 Saturation (94-97) % ABG Hematocrit (34.0-46.0) % ABG Potassium (3.4-4.5) mmol/L ABG Ionized Calcium (4.5-5.3) mg/dL ABG Glucose (75-99) mg/dL ABG Lactic Acid (0.5-1.6) mmol/L Hemoglobin (13.0-17.5) gm/dL Potassium 5.5 H (3.5-5.1) mmol/L Chloride (98-107) mmol/L Glucose 138 H (74-99) mg/dL POC Glucose (mg/dL) 151 H 152 H (75-99) mg/dL Calcium (8.4-10.2) mg/dL Magnesium (1.6-2.3) mg/dL AST (17-59) U/L Total Protein 5.5 L (6.3-8.2) g/dL Albumin (3.5-5.0) g/dL Arterial Blood Potassium (3.4-4.5) mmol/L Arterial Blood Glucose (75-99) mg/dL Crossmatch 01/22/19 Range/Units 06:53 WBC (3.8-10.6) k/uL RBC (4.30-5.90) m/uL Hgb (13.0-17.5) gm/dL Hct (39.0-53.0) % Plt Count (150-450) k/uL Neutrophils # (1.3-7.7) k/uL Lymphocytes # (1.0-4.8) k/uL APTT (22.0-30.0) sec ABG pH (7.35-7.45) ABG pCO2 (35-45) mmHg ABG pO2 (83-108) mmHg ABG HCO3 (21-25) mmol/L ABG Total CO2 (19-24) mmol/L ABG O2 Saturation (94-97) % ABG Hematocrit (34.0-46.0) % ABG Potassium (3.4-4.5) mmol/L ABG Ionized Calcium (4.5-5.3) mg/dL ABG Glucose (75-99) mg/dL ABG Lactic Acid (0.5-1.6) mmol/L Hemoglobin (13.0-17.5) gm/dL Potassium (3.5-5.1) mmol/L Chloride (98-107) mmol/L Glucose (74-99) mg/dL POC Glucose (mg/dL) 140 H (75-99) mg/dL Calcium (8.4-10.2) mg/dL Magnesium (1.6-2.3) mg/dL AST (17-59) U/L Total Protein (6.3-8.2) g/dL Albumin (3.5-5.0) g/dL Arterial Blood Potassium (3.4-4.5) mmol/L Arterial Blood Glucose (75-99) mg/dL Crossmatch Assessment and Plan Assessment: Assessment #1 acute non-ST deviation myocardial infarction #2 severe left main coronary artery disease and status post CABG #3 history of smoking #4 significant family history of coronary artery disease Plan #1 continue the current medical regimen #2 DC Cardizem IV and switch him to Norvasc later on today #3 the right wean the patient from the Primacor #4 follow-up with the patient
[2019-01-22] MEDS ORDERED: LORazepam 2 MG/ML INJ IV PRN ×3 (07:40)
[2019-01-22] MEDS ORDERED: THIAMINE 100 MG/ML 2 ML VIAL IM STA (07:43)
--- NOTE | 2019-01-22 07:51 | XR ---
EXAMINATION TYPE: XR chest 1V portable DATE OF EXAM: 01/22/2019 CLINICAL HISTORY: Difficulty breathing progress study. Post open cardiac surgery. TECHNIQUE: Single AP portable upright view of the chest is obtained. COMPARISON: Chest x-ray from one day earlier and older studies. FINDINGS: There is interval extubation with removal of endotracheal and orogastric tubes. There is p ersistent mediastinal drainage catheter, left basilar chest tube, and right internal jugular [place]-Mag[place]ys z catheter. Post-CABG changes with mediastinal clips and sternal wires is redemonstrated. Some subcutaneous emphysema left lateral chest wall is improving. Cardiac silhouette size is stable a nd mildly enlarged with central vascular congestion and bibasilar opacities forming. No pneumothorax is clearly seen. Osseous structures are intact. IMPRESSION: Interval extubation. Stable mild cardiomegaly with new mild central vascular congestion a nd developing bibasilar acute atelectasis and/or infiltrate.
[2019-01-22] MEDS: KETOROLAC 30 MG/ML 1 ML VIAL IVP SCH ×4 (08:07→23:55)
[2019-01-22] MEDS: MULTIVITAMINS, THERA 1 EACH TAB PO SCH (08:09)
[2019-01-22] MEDS: ASPIRIN 325 MG TAB PO SCH (08:10)
[2019-01-22] MEDS: ATORVASTATIN 40 MG TAB PO SCH (08:10)
[2019-01-22] MEDS: METOPROLOL TARTRATE 12.5 MG TAB PO SCH ×2 (08:11→21:09)
[2019-01-22] MEDS: CLOPIDOGREL 75 MG TAB PO SCH (08:11)
[2019-01-22] MEDS: MUPIROCIN 2% OINT 22 GM TUBE NASAL SCH ×2 (08:12→21:09)
[2019-01-22 08:34] LABS: Glucose,Whole Blood 136 mg/dL (75-99)
[2019-01-22] MEDS ORDERED: PANTOPRAZOLE 40 MG/10 ML VIAL IVP SCH (09:00)
[2019-01-22] MEDS ORDERED: amLODIPine 2.5 MG TAB PO SCH (09:00)
--- NOTE | 2019-01-22 09:03 | OP ---
OPERATIVE REPORT DATE OF SURGERY: 01/21/2019 PREOPERATIVE DIAGNOSIS: Coronary artery disease. POSTOPERATIVE DIAGNOSIS: Coronary artery disease. PROCEDURE: 1. Coronary bypass grafting x3 vessels (left internal mammary artery to left anterior descending artery, radial artery to obtuse marginal artery, saphenous vein graft to posterior lateral branch of the right coronary artery). 2. Endoscopic vein harvest bilateral greater saphenous vein. 3. Epiaortic ultrasound. 4. Transesophageal echocardiogram. 5. Endoscopic harvest of the left radial artery. SURGEON: 1. Phillip Balbuena MD. PRESS LOADER: 1. BARAK Azar. 2. Chino Burrows NP. ANESTHESIA: General. SPECIMENS: None. COMPLICATIONS: None. INDICATION: The patient is a 43-year-old male with a history of tobacco use and a strong family history of premature coronary artery disease, who presented to the hospital with chest pain. Workup revealed multivessel coronary artery disease including a 95% ostial left main lesion. Urgent coronary artery bypass was recommended. The risks, benefits, alternatives to this procedure were discussed with the patient. All his questions were answered. Consent was obtained. FINDINGS: The left internal mammary artery was good, brisk flow. The saphenous vein was an adequate conduit. The radial artery was good conduit. The LAD measured 1.5 mm. The obtuse marginal artery measured 1.5 mm. The posterior lateral branch measured 1.0 mm. PROCEDURE IN DETAIL: The patient was taken to the operating room, placed supine on the operating table. After the induction of general anesthesia, he was prepped and draped in the usual sterile fashion. Preoperative transesophageal echocardiogram revealed a preserved ejection fraction with trace to mild mitral regurgitation. A median sternotomy was performed. The left internal mammary artery was harvested in standard fashion taking care to clip all branches. Intravenous heparin was administered. The vessel was transected distally revealing brisk flow. Simultaneously, the radial artery was harvested from the left upper extremity using standard endoscopic technique. All branches were tied. In addition, greater saphenous vein was harvested from the left lower extremity using endoscopic technique. Vein was taken from the knee to the thigh. The vein below the knee appeared to be small per ultrasound and therefore was not harvested. This vein was extremely small in diameter and not usable. Additional vein was then harvested in a similar fashion from the right thigh. Again, using endoscopic technique. This vein was adequate for use. Again, the vein distal to the right knee was not harvested. Overall, the vein was inadequate conduit. A pericardial cradle was created. The ascending aorta was palpated. There was no significant calcific plaque noted. Epiaortic ultrasound was then performed on the ascending aorta. Again. no calcific plaque or atheromatous lesion was identified. An arterial cannula was placed in the distal ascending aorta. A venous cannula was placed through the right atrial appendage directed into the IVC. Both antegrade and retrograde catheters were placed as well. The patient was then placed on cardiopulmonary bypass with good decompression of the heart. The cross-clamp was applied. Cold blood potassium cardioplegia was delivered in both antegrade and retrograde fashion to achieve arrest of the heart. Of note, cardioplegia was delivered every 15 to 20 minutes while the patient remained under crossclamp. We began by inspecting the inferior wall. The acute marginal artery branch was identified. The distal right coronary artery was difficult to identify. I dug through the fat until a very small vessel was identified. It was not amenable for bypass. He there appeared to be a collateral branch coming from the left coronary system to the distal right coronary to the inferior wall. This vessel was seen on his cardiac catheterization. A small arteriotomy was created. This vessel accepted a 1 mm probe. Using saphenous vein in a reverse fashion, an end-to-side anastomosis was created. This was performed using running 7-0 Prolene suture. The graft was hemostatic and had good flow. Next, the lateral wall was identified. The obtuse marginal artery was dissected free. A small arteriotomy was created. This vessel accepted a 1 mm for a 1.5 mm probe. Using the radial artery in an end-to-side fashion, end-to-side anastomosis was created. This performed using running 7-0 Prolene suture. The graft was hemostatic and had good flow. The radial artery was tacked down to the surface of the heart. Finally, the anterior surface of the heart was then inspected. The left anterior descending artery was dissected free in its midportion. It was a large vessel. This vessel accepted a small arteriotomy was created. The vessel accepted a 1.5 mm probe. Using the left internal mammary artery, an end-to-side anastomosis was created. This performed a running 8-0 Prolene suture. The graft was hemostatic. The mammary pedicle was then tacked down to the anterior surface of the heart. Attention was then turned to the proximal anastomoses. These were performed in an end- to-side fashion using running 6-0 Prolene sutures. One L of warm blood was delivered in retrograde fashion. Both lidocaine and magnesium were administered as well. The cross- clamp was removed. Distal anastomoses were anastomoses were inspected and appeared to be hemostatic. Temporary atrial ventricular pacing wires were placed and brought through the skin. The patient was then weaned off cardiopulmonary bypass. He without difficulty. He did not require any pressor support. Followup transesophageal echocardiogram confirmed good left ventricular ejection fraction and no change in valvular pathology. Protamine was administered. There were no adverse reactions. All remaining cannulas were removed. The mediastinum was copiously irrigated with warm saline solution. All surgical sites was inspected, appeared to be hemostatic. Reinforcement sutures were placed as needed. Soft tissues reapproximated ascending aorta. Impression of ascending aorta as well as of the apex of the heart. A straight 32-Syriac chest tubes were placed directly in the left pleural space as well as mediastinum. These were secured to skin using sutures. The sternum was then reapproximated using stainless steel wires in inferior fashion. At the completion of the closure, the sternum was well aligned. The wound was then closed in layers. Sterile dressing was applied. The patient appeared to tolerate the procedure well. No immediate complications. He returned to the ICU in critical but stable condition. He did not require any pressors or blood transfusions throughout the case. BRTI / LEXA: [id number] /
[2019-01-22 09:38] LABS: Glucose,Whole Blood 134 mg/dL (75-99)
[2019-01-22 10:30] LABS: Glucose,Whole Blood 125 mg/dL (75-99)
[2019-01-22 12:00] LABS: Glucose,Whole Blood 117 mg/dL (75-99)
--- NOTE | 2019-01-22 12:13 | P.PN ---
Subjective Progress Note Date: 01/22/19 Principal diagnosis: Status post CABG 3 with VELASQUEZ to LAD, radial to obtuse marginal and SVG to RCA. Postoperative day #1. This is a 43-year-old white male, [id number] smoker, strong family history of premature coronary artery disease, no history of hypertension, no history of diabetes, patient presented to the ER yesterday with severe substernal chest discomfort. Patient felt a sudden onset of squeezing chest pain and discomfort associated with numbness in the right arm. It was also associated with diaphoresis and sweating. Upon presentation, his first set of troponin came back slightly elevated, EKG showed nonspecific changes in the inferior lateral leads but subsequent EKG showed T-wave inversion in the inferior lateral leads quite concerning for ischemia. Patient underwent cardiac catheterization, and it showed a critical disease involving the left main coronary artery in its proximal portion in the range of 99.9%. Patient was referred to cardiac surger y, and he will be scheduled for myocardial revascularization in the next 24 hours. Considering his smoking history, I was asked to see him on consultation for pulmonary clearance. Patient had no history to suggest underlying COPD, however he had a [id number] smoking history. And smoked until recently. Patient denies any cough no wheezing, no shortness of breath. Preoperative spirometry is pending. In the meantime the patient was given incentive spirometer, and instructed on its use. Chest x-ray on admission showed no active cardiopulmonary disease On 01/20/2019 patient seen again in follow-up on the selective care unit, he is resting comfortably in bed, in no acute distress, denies any chest pain, denies any gouty breathing, his lung sounds are clear, he is on room air, saturation is 96%, patient is on heparin drip, no acute events overnight. Patient is using his incentive spirometer, he is able to achieve 2500 on the today. Today's labs have been reviewed and are unremarkable. Patient is scheduled for surgery tomorrow for 2 possibly 3 aortocoronary bypasses On 01/22/2019, patient is status post CABG, postoperative day #1. Patient underwent VELASQUEZ to LAD, radial to obtuse marginal and SVG to RCA. Patient is doing great today, he was extubated a few hours after he was admitted to the ICU overnight. Presently no cough no wheezing no shortness of breath, feels general ly sore. Patient is doing well with incentive spirometry, and his chest x-ray showed mild cardiomegaly, minimal pulmonary vascular congestion, and basilar atelectasis bilaterally. Labs were reviewed relatively normal CBC. Hemoglobin is 11.3. Electrolytes are normal except for slightly elevated potassium of 5.5, rest of the labs were unremarkable. Objective - Vital Signs Vital signs: Vital Signs Temp 37.0 F L 01/22/19 08:00 Pulse 75 01/22/19 12:00 Resp 10 L 01/22/19 12:00 BP 119/70 01/22/19 12:00 Pulse Ox 97 01/22/19 12:00 Intake & Output 01/21/19 01/22/19 01/22/19 18:59 06:59 18:59 Intake Total 691.952 5241.744 432.361 Output Total 1675 1727 420 Balance -1561.600 371.744 12.361 Weight 86.5 kg 86.5 kg Intake: IV 109.5 1996.5 282.5 Albumin Human 25% 50 ml 1000 In Empty Bag 1 bag @ 100 mls/hr IVPB ONCE ONE Rx#: [id number] CO/CI 200 Diltiazem 125 mg In 5 42.5 2.5 Sodium Chloride 0.9% 100 ml @ 5 MG/HR 5 mls/hr IV .Q24H [facility] Rx#:[id number] Lactated Ringers 1,000 ml 50 605 250 @ 20 mls/hr IV .Q24H [facility] Rx#:[id number] Nitroglycerin-D5w Pmx 50 1.5 65 0 mg In Dextrose/Water 1 250ml.bag @ 5 MCG/MIN 1.5 mls/hr IV .Q24H [facility] Rx#: [id number] Pressure bag 84 30 Intake, IV Titration 3.900 102.244 149.861 Amount Clevidipine Butyrate 25 3.900 42.533 mg In Empty Bag 1 bag @ 1 MG/HR 2 mls/hr IV .Q24H [facility] Rx#:[id number] Diltiazem 125 mg In 72.083 Sodium Chloride 0.9% 100 ml @ 5 MG/HR 5 mls/hr IV .Q24H [facility] Rx#:[id number] Insulin Regular 100 unit 6.640 4.966 In Sodium Chloride 0.9% 100 ml @ Per Protocol IV .Q0M [facility] Rx#:[id number] Milrinone-D5w Pmx 20 mg 72.812 In Dextrose/Water 1 100ml .bag @ 0.2 MCG/KG/MIN 4. 956 mls/hr IV .[id number] [facility] Rx#:[id number] Propofol 1,000 mg In 53.071 Empty Bag 1 bag @ Titrate IV .Q0M D[facility] Rx#: [id number] Output: Chest Tube Drainage 35 327 120 Chest Tube Bilateral 35 265 95 Mediastinal Chest Tube Left Lateral 0 62 25 Chest Urine 640 1400 300 Estimated Blood Loss 1000 Other: Voiding Method Indwelling Catheter Indwelling Catheter Indwelling Catheter ABP, PAP, CO, CI - Last Documented Arterial Blood Pressure 147/74 Pulmonary Artery Pressure 24/13 Cardiac Output 6.5 Cardiac Index 3.2 - Exam GENERAL EXAM: Revealed 43-year-old white male sitting in a bedside chair, on nasal cannula, in no distress, very pleasant. HEAD: Normocephalic/atraumatic. EYES: Normal reaction of pupils, equal size. Conjunctiva pink, sclera white. NOSE: Clear with pink turbinates. THROAT: No erythema or exudates. NECK: No masses, no JVD, no thyroid enlargement, no adenopathy. CHEST: No chest wall deformity. Symmetrical expansion. Sternum seems to be stable. Surgical dressing is clean. LUNGS: Diminished breath sounds at the bases no rhonchi no wheezes. Symmetrical chest expansion is noted to. CVS: Regular rate and rhythm, normal S1 and S2, no gallops, no murmurs, no rubs ABDOMEN: Soft, nontender. No hepatosplenomegaly, normal bowel sounds, no guarding or rigidity. EXTREMITIES: No clubbing, no edema, no cyanosis, 2+ pulses and upper and lower extremities. MUSCULOSKELETAL: Muscle strength and tone normal. CENTRAL NERVOUS SYSTEM: Alert and oriented -3. No focal deficits, tone is normal in all 4 extremities. PSYCHIATRIC: Normal mood, affect and mental status examination. - Labs CBC & Chem 7: 01/22/19 04:44 01/22/19 04:44 Labs: Abnormal Lab Results - Last 24 Hours (Table) 01/20/19 01/21/19 01/21/19 Range/Units 06:40 11:38 12:46 WBC (3.8-10.6) k/uL RBC (4.30-5.90) m/uL Hgb (13.0-17.5) gm/dL Hct (39.0-53.0) % Plt Count (150-450) k/uL Neutrophils # (1.3-7.7) k/uL Lymphocytes # (1.0-4.8) k/uL APTT (22.0-30.0) sec ABG pH 7.32 L (7.35-7.45) ABG pCO2 55 H (35-45) mmHg ABG pO2 141 H (83-108) mmHg ABG HCO3 27 H 28 H (21-25) mmol/L ABG Total CO2 29 H 30 H (19-24) mmol/L ABG O2 Saturation 97.3 H 99.0 H (94-97) % ABG Hematocrit (34.0-46.0) % ABG Potassium (3.4-4.5) mmol/L ABG Ionized Calcium (4.5-5.3) mg/dL ABG Glucose 106 H 122 H (75-99) mg/dL ABG Lactic Acid (0.5-1.6) mmol/L Hemoglobin (13.0-17.5) gm/dL Potassium (3.5-5.1) mmol/L Chloride (98-107) mmol/L Glucose (74-99) mg/dL POC Glucose (mg/dL) (75-99) mg/dL Calcium (8.4-10.2) mg/dL Magnesium (1.6-2.3) mg/dL Total Protein (6.3-8.2) g/dL Albumin (3.5-5.0) g/dL Arterial Blood Potassium (3.4-4.5) mmol/L Arterial Blood Glucose 106 H 122 H (75-99) mg/dL Crossmatch See Detail 01/21/19 01/21/19 01/21/19 Range/Units 13:43 14:13 14:42 WBC (3.8-10.6) k/uL RBC (4.30-5.90) m/uL Hgb (13.0-17.5) gm/dL Hct (39.0-53.0) % Plt Count (150-450) k/uL Neutrophils # (1.3-7.7) k/uL Lymphocytes # (1.0-4.8) k/uL APTT (22.0-30.0) sec ABG pH 7.33 L (7.35-7.45) ABG pCO2 48 H 48 H (35-45) mmHg ABG pO2 >420 H 234 H 387 H (83-108) mmHg ABG HCO3 27 H 26 H (21-25) mmol/L ABG Total CO2 27 H 28 H 27 H (19-24) mmol/L ABG O2 Saturation 100.0 H 99.9 H 100.0 H (94-97) % ABG Hematocrit 33 L 30 L 30 L (34.0-46.0) % ABG Potassium 5.9 H 5.0 H (3.4-4.5) mmol/L ABG Ionized Calcium 4.1 L 4.3 L 4.3 L (4.5-5.3) mg/dL ABG Glucose 118 H 232 H 203 H (75-99) mg/dL ABG Lactic Acid (0.5-1.6) mmol/L Hemoglobin 10.6 L 9.8 L 9.7 L (13.0-17.5) gm/dL Potassium (3.5-5.1) mmol/L Chloride (98-107) mmol/L Glucose (74-99) mg/dL POC Glucose (mg/dL) (75-99) mg/dL Calcium (8.4-10.2) mg/dL Magnesium (1.6-2.3) mg/dL Total Protein (6.3-8.2) g/dL Albumin (3.5-5.0) g/dL Arterial Blood Potassium 5.9 H 5.0 H (3.4-4.5) mmol/L Arterial Blood Glucose 118 H 232 H 203 H (75-99) mg/dL Crossmatch 01/21/19 01/21/19 01/21/19 Range/Units 15:41 17:11 17:40 WBC (3.8-10.6) k/uL RBC 3.66 L (4.30-5.90) m/uL Hgb 11.4 L (13.0-17.5) gm/dL Hct 33.5 L (39.0-53.0) % Plt Count 115 L (150-450) k/uL Neutrophils # (1.3-7.7) k/uL Lymphocytes # (1.0-4.8) k/uL APTT (22.0-30.0) sec ABG pH (7.35-7.45) ABG pCO2 48 H (35-45) mmHg ABG pO2 341 H 79 L (83-108) mmHg ABG HCO3 27 H (21-25) mmol/L ABG Total CO2 27 H 28 H (19-24) mmol/L ABG O2 Saturation 100.0 H (94-97) % ABG Hematocrit 28 L 30 L (34.0-46.0) % ABG Potassium 4.7 H (3.4-4.5) mmol/L ABG Ionized Calcium 4.3 L (4.5-5.3) mg/dL ABG Glucose 190 H 116 H (75-99) mg/dL ABG Lactic Acid 2.3 H* (0.5-1.6) mmol/L Hemoglobin 9.3 L 9.8 L (13.0-17.5) gm/dL Potassium (3.5-5.1) mmol/L Chloride (98-107) mmol/L Glucose (74-99) mg/dL POC Glucose (mg/dL) (75-99) mg/dL Calcium (8.4-10.2) mg/dL Magnesium (1.6-2.3) mg/dL Total Protein (6.3-8.2) g/dL Albumin (3.5-5.0) g/dL Arterial Blood Potassium 4.7 H (3.4-4.5) mmol/L Arterial Blood Glucose 190 H 116 H (75-99) mg/dL Crossmatch 01/21/19 01/21/19 01/21/19 Range/Units 17:40 18:30 20:01 WBC (3.8-10.6) k/uL RBC (4.30-5.90) m/uL Hgb (13.0-17.5) gm/dL Hct (39.0-53.0) % Plt Count (150-450) k/uL Neutrophils # (1.3-7.7) k/uL Lymphocytes # (1.0-4.8) k/uL APTT (22.0-30.0) sec ABG pH 7.26 L (7.35-7.45) ABG pCO2 63 H (35-45) mmHg ABG pO2 110 H (83-108) mmHg ABG HCO3 28 H (21-25) mmol/L ABG Total CO2 30 H (19-24) mmol/L ABG O2 Saturation 97.4 H (94-97) % ABG Hematocrit (34.0-46.0) % ABG Potassium (3.4-4.5) mmol/L ABG Ionized Calcium (4.5-5.3) mg/dL ABG Glucose (75-99) mg/dL ABG Lactic Acid (0.5-1.6) mmol/L Hemoglobin (13.0-17.5) gm/dL Potassium (3.5-5.1) mmol/L Chloride 110 H (98-107) mmol/L Glucose (74-99) mg/dL POC Glucose (mg/dL) 157 H (75-99) mg/dL Calcium 7.9 L (8.4-10.2) mg/dL Magnesium 2.6 H (1.6-2.3) mg/dL Total Protein 4.2 L (6.3-8.2) g/dL Albumin 2.4 L (3.5-5.0) g/dL Arterial Blood Potassium (3.4-4.5) mmol/L Arterial Blood Glucose (75-99) mg/dL Crossmatch 01/21/19 01/21/19 01/21/19 Range/Units 20:38 20:45 21:08 WBC 13.4 H (3.8-10.6) k/uL RBC 4.07 L (4.30-5.90) m/uL Hgb 12.6 L (13.0-17.5) gm/dL Hct 38.3 L (39.0-53.0) % Plt Count 148 L (150-450) k/uL Neutrophils # 12.2 H (1.3-7.7) k/uL Lymphocytes # 0.9 L (1.0-4.8) k/uL APTT 30.2 H (22.0-30.0) sec ABG pH (7.35-7.45) ABG pCO2 (35-45) mmHg ABG pO2 (83-108) mmHg ABG HCO3 (21-25) mmol/L ABG Total CO2 (19-24) mmol/L ABG O2 Saturation (94-97) % ABG Hematocrit (34.0-46.0) % ABG Potassium (3.4-4.5) mmol/L ABG Ionized Calcium (4.5-5.3) mg/dL ABG Glucose (75-99) mg/dL ABG Lactic Acid (0.5-1.6) mmol/L Hemoglobin (13.0-17.5) gm/dL Potassium (3.5-5.1) mmol/L Chloride (98-107) mmol/L Glucose (74-99) mg/dL POC Glucose (mg/dL) 131 H (75-99) mg/dL Calcium (8.4-10.2) mg/dL Magnesium (1.6-2.3) mg/dL Total Protein (6.3-8.2) g/dL Albumin (3.5-5.0) g/dL Arterial Blood Potassium (3.4-4.5) mmol/L Arterial Blood Glucose (75-99) mg/dL Crossmatch 01/21/19 01/21/19 01/21/19 Range/Units 22:08 23:00 23:18 WBC (3.8-10.6) k/uL RBC (4.30-5.90) m/uL Hgb (13.0-17.5) gm/dL Hct (39.0-53.0) % Plt Count (150-450) k/uL Neutrophils # (1.3-7.7) k/uL Lymphocytes # (1.0-4.8) k/uL APTT (22.0-30.0) sec ABG pH (7.35-7.45) ABG pCO2 47 H (35-45) mmHg ABG pO2 115 H (83-108) mmHg ABG HCO3 28 H (21-25) mmol/L ABG Total CO2 30 H (19-24) mmol/L ABG O2 Saturation 98.5 H (94-97) % ABG Hematocrit (34.0-46.0) % ABG Potassium (3.4-4.5) mmol/L ABG Ionized Calcium (4.5-5.3) mg/dL ABG Glucose (75-99) mg/dL ABG Lactic Acid (0.5-1.6) mmol/L Hemoglobin (13.0-17.5) gm/dL Potassium (3.5-5.1) mmol/L Chloride (98-107) mmol/L Glucose (74-99) mg/dL POC Glucose (mg/dL) 135 H 112 H (75-99) mg/dL Calcium (8.4-10.2) mg/dL Magnesium (1.6-2.3) mg/dL Total Protein (6.3-8.2) g/dL Albumin (3.5-5.0) g/dL Arterial Blood Potassium (3.4-4.5) mmol/L Arterial Blood Glucose (75-99) mg/dL Crossmatch 01/21/19 01/21/19 01/22/19 Range/Units 23:24 23:34 00:08 WBC 14.3 H (3.8-10.6) k/uL RBC 4.20 L (4.30-5.90) m/uL Hgb 12.8 L (13.0-17.5) gm/dL Hct 38.8 L (39.0-53.0) % Plt Count 139 L (150-450) k/uL Neutrophils # 13.1 H (1.3-7.7) k/uL Lymphocytes # 0.8 L (1.0-4.8) k/uL APTT (22.0-30.0) sec ABG pH (7.35-7.45) ABG pCO2 51 H (35-45) mmHg ABG pO2 120 H (83-108) mmHg ABG HCO3 28 H (21-25) mmol/L ABG Total CO2 30 H (19-24) mmol/L ABG O2 Saturation 98.6 H (94-97) % ABG Hematocrit (34.0-46.0) % ABG Potassium (3.4-4.5) mmol/L ABG Ionized Calcium (4.5-5.3) mg/dL ABG Glucose (75-99) mg/dL ABG Lactic Acid (0.5-1.6) mmol/L Hemoglobin (13.0-17.5) gm/dL Potassium (3.5-5.1) mmol/L Chloride (98-107) mmol/L Glucose (74-99) mg/dL POC Glucose (mg/dL) 150 H (75-99) mg/dL Calcium (8.4-10.2) mg/dL Magnesium (1.6-2.3) mg/dL Total Protein (6.3-8.2) g/dL Albumin (3.5-5.0) g/dL Arterial Blood Potassium (3.4-4.5) mmol/L Arterial Blood Glucose (75-99) mg/dL Crossmatch 01/22/19 01/22/19 01/22/19 Range/Units 01:08 02:05 03:02 WBC (3.8-10.6) k/uL RBC (4.30-5.90) m/uL Hgb (13.0-17.5) gm/dL Hct (39.0-53.0) % Plt Count (150-450) k/uL Neutrophils # (1.3-7.7) k/uL Lymphocytes # (1.0-4.8) k/uL APTT (22.0-30.0) sec ABG pH (7.35-7.45) ABG pCO2 (35-45) mmHg ABG pO2 (83-108) mmHg ABG HCO3 (21-25) mmol/L ABG Total CO2 (19-24) mmol/L ABG O2 Saturation (94-97) % ABG Hematocrit (34.0-46.0) % ABG Potassium (3.4-4.5) mmol/L ABG Ionized Calcium (4.5-5.3) mg/dL ABG Glucose (75-99) mg/dL ABG Lactic Acid (0.5-1.6) mmol/L Hemoglobin (13.0-17.5) gm/dL Potassium (3.5-5.1) mmol/L Chloride (98-107) mmol/L Glucose (74-99) mg/dL POC Glucose (mg/dL) 131 H 137 H 149 H (75-99) mg/dL Calcium (8.4-10.2) mg/dL Magnesium (1.6-2.3) mg/dL Total Protein (6.3-8.2) g/dL Albumin (3.5-5.0) g/dL Arterial Blood Potassium (3.4-4.5) mmol/L Arterial Blood Glucose (75-99) mg/dL Crossmatch 01/22/19 01/22/19 01/22/19 Range/Units 03:53 04:44 04:44 WBC 13.2 H (3.8-10.6) k/uL RBC 3.57 L (4.30-5.90) m/uL Hgb 11.3 L (13.0-17.5) gm/dL Hct 33.1 L (39.0-53.0) % Plt Count 132 L (150-450) k/uL Neutrophils # 11.9 H (1.3-7.7) k/uL Lymphocytes # 0.8 L (1.0-4.8) k/uL APTT (22.0-30.0) sec ABG pH (7.35-7.45) ABG pCO2 (35-45) mmHg ABG pO2 (83-108) mmHg ABG HCO3 (21-25) mmol/L ABG Total CO2 (19-24) mmol/L ABG O2 Saturation (94-97) % ABG Hematocrit (34.0-46.0) % ABG Potassium (3.4-4.5) mmol/L ABG Ionized Calcium (4.5-5.3) mg/dL ABG Glucose (75-99) mg/dL ABG Lactic Acid (0.5-1.6) mmol/L Hemoglobin (13.0-17.5) gm/dL Potassium 5.5 H (3.5-5.1) mmol/L Chloride (98-107) mmol/L Glucose 138 H (74-99) mg/dL POC Glucose (mg/dL) 146 H (75-99) mg/dL Calcium (8.4-10.2) mg/dL Magnesium (1.6-2.3) mg/dL Total Protein 5.5 L (6.3-8.2) g/dL Albumin (3.5-5.0) g/dL Arterial Blood Potassium (3.4-4.5) mmol/L Arterial Blood Glucose (75-99) mg/dL Crossmatch 01/22/19 01/22/19 01/22/19 Range/Units 05:00 06:06 06:53 WBC (3.8-10.6) k/uL RBC (4.30-5.90) m/uL Hgb (13.0-17.5) gm/dL Hct (39.0-53.0) % Plt Count (150-450) k/uL Neutrophils # (1.3-7.7) k/uL Lymphocytes # (1.0-4.8) k/uL APTT (22.0-30.0) sec ABG pH (7.35-7.45) ABG pCO2 (35-45) mmHg ABG pO2 (83-108) mmHg ABG HCO3 (21-25) mmol/L ABG Total CO2 (19-24) mmol/L ABG O2 Saturation (94-97) % ABG Hematocrit (34.0-46.0) % ABG Potassium (3.4-4.5) mmol/L ABG Ionized Calcium (4.5-5.3) mg/dL ABG Glucose (75-99) mg/dL ABG Lactic Acid (0.5-1.6) mmol/L Hemoglobin (13.0-17.5) gm/dL Potassium (3.5-5.1) mmol/L Chloride (98-107) mmol/L Glucose (74-99) mg/dL POC Glucose (mg/dL) 151 H 152 H 140 H (75-99) mg/dL Calcium (8.4-10.2) mg/dL Magnesium (1.6-2.3) mg/dL Total Protein (6.3-8.2) g/dL Albumin (3.5-5.0) g/dL Arterial Blood Potassium (3.4-4.5) mmol/L Arterial Blood Glucose (75-99) mg/dL Crossmatch 01/22/19 01/22/19 01/22/19 Range/Units 08:20 09:35 10:26 WBC (3.8-10.6) k/uL RBC (4.30-5.90) m/uL Hgb (13.0-17.5) gm/dL Hct (39.0-53.0) % Plt Count (150-450) k/uL Neutrophils # (1.3-7.7) k/uL Lymphocytes # (1.0-4.8) k/uL APTT (22.0-30.0) sec ABG pH (7.35-7.45) ABG pCO2 (35-45) mmHg ABG pO2 (83-108) mmHg ABG HCO3 (21-25) mmol/L ABG Total CO2 (19-24) mmol/L ABG O2 Saturation (94-97) % ABG Hematocrit (34.0-46.0) % ABG Potassium (3.4-4.5) mmol/L ABG Ionized Calcium (4.5-5.3) mg/dL ABG Glucose (75-99) mg/dL ABG Lactic Acid (0.5-1.6) mmol/L Hemoglobin (13.0-17.5) gm/dL Potassium (3.5-5.1) mmol/L Chloride (98-107) mmol/L Glucose (74-99) mg/dL POC Glucose (mg/dL) 136 H 134 H 125 H (75-99) mg/dL Calcium (8.4-10.2) mg/dL Magnesium (1.6-2.3) mg/dL Total Protein (6.3-8.2) g/dL Albumin (3.5-5.0) g/dL Arterial Blood Potassium (3.4-4.5) mmol/L Arterial Blood Glucose (75-99) mg/dL Crossmatch 01/22/19 Range/Units 11:57 WBC (3.8-10.6) k/uL RBC (4.30-5.90) m/uL Hgb (13.0-17.5) gm/dL Hct (39.0-53.0) % Plt Count (150-450) k/uL Neutrophils # (1.3-7.7) k/uL Lymphocytes # (1.0-4.8) k/uL APTT (22.0-30.0) sec ABG pH (7.35-7.45) ABG pCO2 (35-45) mmHg ABG pO2 (83-108) mmHg ABG HCO3 (21-25) mmol/L ABG Total CO2 (19-24) mmol/L ABG O2 Saturation (94-97) % ABG Hematocrit (34.0-46.0) % ABG Potassium (3.4-4.5) mmol/L ABG Ionized Calcium (4.5-5.3) mg/dL ABG Glucose (75-99) mg/dL ABG Lactic Acid (0.5-1.6) mmol/L Hemoglobin (13.0-17.5) gm/dL Potassium (3.5-5.1) mmol/L Chloride (98-107) mmol/L Glucose (74-99) mg/dL POC Glucose (mg/dL) 117 H (75-99) mg/dL Calcium (8.4-10.2) mg/dL Magnesium (1.6-2.3) mg/dL Total Protein (6.3-8.2) g/dL Albumin (3.5-5.0) g/dL Arterial Blood Potassium (3.4-4.5) mmol/L Arterial Blood Glucose (75-99) mg/dL Crossmatch Assessment and Plan Assessment: Impression: Status post CABG, postoperative day #1. Acute non-ST elevation myocardial infarction Severe left main coronary artery disease History of smoking, tobacco dependence syndrome Significant family history for coronary artery disease. Recommendation: 1: Continue incentive spirometry. 2: Early ambulation and bronchodilators 3: Continue statin, Plavix, beta blockers, continue to wean from Primacor, 4 encourage deep coughing and deep breathing 5 continue pain control 6 we'll continue to follow. Time with Patient: Less than 30
--- NOTE | 2019-01-22 12:22 | P.PN ---
Subjective Progress Note Date: 01/22/19 Principal diagnosis: Critical left main coronary artery disease, non-STEMI. Previous medical history of untreated hyperlipidemia, current tobacco dependence, mild COPD with preope rative FEV1 65% of predicted, and family history of premature coronary artery disease. POD #1 urgent coronary bypass grafting 3 vessels, left internal mammary artery to the left anterior superior descending artery, radial artery to the obtuse marginal artery, reverse saphenous vein graft to the posterior lateral branch of the right coronary artery, endoscopic vein harvest of the bilateral greater saphenous veins from the knee to the thigh, epi-aortic ultrasound, intraoperative transesophageal echocardiogram, endoscopic harvesting of the left radial artery. Postoperative acute blood loss anemia, expected outcome of surgery given cardiopulmonary bypass pump and hemodilution The patient is currently sitting up in the recliner in the intensive care unit in no acute distress. He was successfully extubated at 23:40 last night. He does complain of post surgical pain which is controlled on current medication regimine. He was on low dose Primacor this morning, but this has been successful ly weaned off. Remains in normal sinus rhythm, hemodynamically stable on no inotropes or pressors. No new complaints. Objective - Vital Signs Vital signs: Vital Signs Temp 37.0 F L 01/22/19 08:00 Pulse 75 01/22/19 12:00 Resp 10 L 01/22/19 12:00 BP 119/70 01/22/19 12:00 Pulse Ox 97 01/22/19 12:00 Intake & Output 01/21/19 01/22/19 01/22/19 18:59 06:59 18:59 Intake Total 356.000 7337.744 432.361 Output Total 1675 1727 420 Balance -1561.600 371.744 12.361 Weight 86.5 kg 86.5 kg Intake: IV 109.5 1996.5 282.5 Albumin Human 25% 50 ml 1000 In Empty Bag 1 bag @ 100 mls/hr IVPB ONCE ONE Rx#: [id number] CO/CI 200 Diltiazem 125 mg In 5 42.5 2.5 Sodium Chloride 0.9% 100 ml @ 5 MG/HR 5 mls/hr IV .Q24H DARIN Rx#:[id number] Lactated Ringers 1,000 ml 50 605 250 @ 20 mls/hr IV .Q24H [facility]ARIN Rx#:[id number] Nitroglycerin-D5w Pmx 50 1.5 65 0 mg In Dextrose/Water 1 250ml.bag @ 5 MCG/MIN 1.5 mls/hr IV .Q24H [facility] Rx#: [id number] Pressure bag 84 30 Intake, IV Titration 3.900 102.244 149.861 Amount Clevidipine Butyrate 25 3.900 42.533 mg In Empty Bag 1 bag @ 1 MG/HR 2 mls/hr IV .Q24H [facility] Rx#:[id number] Diltiazem 125 mg In 72.083 Sodium Chloride 0.9% 100 ml @ 5 MG/HR 5 mls/hr IV .Q24H [facility]IN Rx#:[id number] Insulin Regular 100 unit 6.640 4.966 In Sodium Chloride 0.9% 100 ml @ Per Protocol IV .Q0M [facility]IN Rx#:[id number] Milrinone-D5w Pmx 20 mg 72.812 In Dextrose/Water 1 100ml .bag @ 0.2 MCG/KG/MIN 4. 956 mls/hr IV .[id number] [facility]IN Rx#:[id number] Propofol 1,000 mg In 53.071 Empty Bag 1 bag @ Titrate IV .Q0M DARIN Rx#: [id number] Output: Chest Tube Drainage 35 327 120 Chest Tube Bilateral 35 265 95 Mediastinal Chest Tube Left Lateral 0 62 25 Chest Urine 640 1400 300 Estimated Blood Loss 1000 Other: Voiding Method Indwelling Catheter Indwelling Catheter Indwelling Catheter ABP, PAP, CO, CI - Last Documented Arterial Blood Pressure 147/74 Pulmonary Artery Pressure 24/13 Cardiac Output 6.5 Cardiac Index 3.2 - Constitutional General appearance: Present: cooperative, no acute distress - Respiratory Details: Lungs sounds diminished bilaterally. Respirations even, nonlabored. Currently on 3 L nasal cannula with oxygen saturation 97%. Able to achieve 500 mL on his incentive spirometry. Weak cough. Mediastinal chest tube to continuous wall suction, 115 mL serosanguineous drainage overnight, 350 mL since surgery. Left pleural chest tube to continuous wall suction, 15 mL serosanguineous drainage overnight, 60 mL since surgery. No air leaks present. - Cardiovascular Details: S1, S2 present. Regular rate and rhythm, sinus rhythm on telemetry. Sternum stable. A/V epicardial pacemaker wires present, connected to generator, AAI mode with backup rate 50 bpm. Palpable peripheral pulses bilaterally. No edema present. No calf pain or tenderness noted. Right internal jugular Lankin/Cordis present. Last CO/CI 6.5/3.2 on no inotropes or pressors. Heart hugger in place with patient demonstrating appropriate use. Antiembolism stockings, SCDs present. - Gastrointestinal Gastrointestinal Comment(s): Abdomen soft, nontender, nondistended. Active bowel sounds 4 quadrants. Tolerating clear liquids. Positive belching, negative flatus, negative bowel movement. - Genitourinary Genitourinary Comment(s): Whyte present draining clear, yellow urine. Output 30-75 mL/h overnight. - Integumentary Integumentary Comment(s): Skin is warm and dry with evidence of good perfusion. Anterior chest incision well approximated and covered with dry intact dressing. Left radial artery harvest site well approximated, CHRISTINA drain present with minimal drainage. Bilat eral lower extremity EVH sites well approximated. - Neurologic Neurologic: Present: CNII-XII intact - Musculoskeletal Musculoskeletal: Present: strength equal bilaterally - Psychiatric Psychiatric: Present: A&O x's 3, appropriate affect, intact judgment & insight - Allied health notes Allied health notes reviewed: nursing - Labs CBC & Chem 7: 01/22/19 04:44 01/22/19 04:44 Labs: Abnormal Lab Results - Last 24 Hours (Table) 01/20/19 01/21/19 01/21/19 Range/Units 06:40 11:38 12:46 WBC (3.8-10.6) k/uL RBC (4.30-5.90) m/uL Hgb (13.0-17.5) gm/dL Hct (39.0-53.0) % Plt Count (150-450) k/uL Neutrophils # (1.3-7.7) k/uL Lymphocytes # (1.0-4.8) k/uL APTT (22.0-30.0) sec ABG pH 7.32 L (7.35-7.45) ABG pCO2 55 H (35-45) mmHg ABG pO2 141 H (83-108) mmHg ABG HCO3 27 H 28 H (21-25) mmol/L ABG Total CO2 29 H 30 H (19-24) mmol/L ABG O2 Saturation 97.3 H 99.0 H (94-97) % ABG Hematocrit (34.0-46.0) % ABG Potassium (3.4-4.5) mmol/L ABG Ionized Calcium (4.5-5.3) mg/dL ABG Glucose 106 H 122 H (75-99) mg/dL ABG Lactic Acid (0.5-1.6) mmol/L Hemoglobin (13.0-17.5) gm/dL Potassium (3.5-5.1) mmol/L Chloride (98-107) mmol/L Glucose (74-99) mg/dL POC Glucose (mg/dL) (75-99) mg/dL Calcium (8.4-10.2) mg/dL Magnesium (1.6-2.3) mg/dL Total Protein (6.3-8.2) g/dL Albumin (3.5-5.0) g/dL Arterial Blood Potassium (3.4-4.5) mmol/L Arterial Blood Glucose 106 H 122 H (75-99) mg/dL Crossmatch See Detail 01/21/19 01/21/19 01/21/19 Range/Units 13:43 14:13 14:42 WBC (3.8-10.6) k/uL RBC (4.30-5.90) m/uL Hgb (13.0-17.5) gm/dL Hct (39.0-53.0) % Plt Count (150-450) k/uL Neutrophils # (1.3-7.7) k/uL Lymphocytes # (1.0-4.8) k/uL APTT (22.0-30.0) sec ABG pH 7.33 L (7.35-7.45) ABG pCO2 48 H 48 H (35-45) mmHg ABG pO2 >420 H 234 H 387 H (83-108) mmHg ABG HCO3 27 H 26 H (21-25) mmol/L ABG Total CO2 27 H 28 H 27 H (19-24) mmol/L ABG O2 Saturation 100.0 H 99.9 H 100.0 H (94-97) % ABG Hematocrit 33 L 30 L 30 L (34.0-46.0) % ABG Potassium 5.9 H 5.0 H (3.4-4.5) mmol/L ABG Ionized Calcium 4.1 L 4.3 L 4.3 L (4.5-5.3) mg/dL ABG Glucose 118 H 232 H 203 H (75-99) mg/dL ABG Lactic Acid (0.5-1.6) mmol/L Hemoglobin 10.6 L 9.8 L 9.7 L (13.0-17.5) gm/dL Potassium (3.5-5.1) mmol/L Chloride (98-107) mmol/L Glucose (74-99) mg/dL POC Glucose (mg/dL) (75-99) mg/dL Calcium (8.4-10.2) mg/dL Magnesium (1.6-2.3) mg/dL Total Protein (6.3-8.2) g/dL Albumin (3.5-5.0) g/dL Arterial Blood Potassium 5.9 H 5.0 H (3.4-4.5) mmol/L Arterial Blood Glucose 118 H 232 H 203 H (75-99) mg/dL Crossmatch 01/21/19 01/21/19 01/21/19 Range/Units 15:41 17:11 17:40 WBC (3.8-10.6) k/uL RBC 3.66 L (4.30-5.90) m/uL Hgb 11.4 L (13.0-17.5) gm/dL Hct 33.5 L (39.0-53.0) % Plt Count 115 L (150-450) k/uL Neutrophils # (1.3-7.7) k/uL Lymphocytes # (1.0-4.8) k/uL APTT (22.0-30.0) sec ABG pH (7.35-7.45) ABG pCO2 48 H (35-45) mmHg ABG pO2 341 H 79 L (83-108) mmHg ABG HCO3 27 H (21-25) mmol/L ABG Total CO2 27 H 28 H (19-24) mmol/L ABG O2 Saturation 100.0 H (94-97) % ABG Hematocrit 28 L 30 L (34.0-46.0) % ABG Potassium 4.7 H (3.4-4.5) mmol/L ABG Ionized Calcium 4.3 L (4.5-5.3) mg/dL ABG Glucose 190 H 116 H (75-99) mg/dL ABG Lactic Acid 2.3 H* (0.5-1.6) mmol/L Hemoglobin 9.3 L 9.8 L (13.0-17.5) gm/dL Potassium (3.5-5.1) mmol/L Chloride (98-107) mmol/L Glucose (74-99) mg/dL POC Glucose (mg/dL) (75-99) mg/dL Calcium (8.4-10.2) mg/dL Magnesium (1.6-2.3) mg/dL Total Protein (6.3-8.2) g/dL Albumin (3.5-5.0) g/dL Arterial Blood Potassium 4.7 H (3.4-4.5) mmol/L Arterial Blood Glucose 190 H 116 H (75-99) mg/dL Crossmatch 01/21/19 01/21/19 01/21/19 Range/Units 17:40 18:30 20:01 WBC (3.8-10.6) k/uL RBC (4.30-5.90) m/uL Hgb (13.0-17.5) gm/dL Hct (39.0-53.0) % Plt Count (150-450) k/uL Neutrophils # (1.3-7.7) k/uL Lymphocytes # (1.0-4.8) k/uL APTT (22.0-30.0) sec ABG pH 7.26 L (7.35-7.45) ABG pCO2 63 H (35-45) mmHg ABG pO2 110 H (83-108) mmHg ABG HCO3 28 H (21-25) mmol/L ABG Total CO2 30 H (19-24) mmol/L ABG O2 Saturation 97.4 H (94-97) % ABG Hematocrit (34.0-46.0) % ABG Potassium (3.4-4.5) mmol/L ABG Ionized Calcium (4.5-5.3) mg/dL ABG Glucose (75-99) mg/dL ABG Lactic Acid (0.5-1.6) mmol/L Hemoglobin (13.0-17.5) gm/dL Potassium (3.5-5.1) mmol/L Chloride 110 H (98-107) mmol/L Glucose (74-99) mg/dL POC Glucose (mg/dL) 157 H (75-99) mg/dL Calcium 7.9 L (8.4-10.2) mg/dL Magnesium 2.6 H (1.6-2.3) mg/dL Total Protein 4.2 L (6.3-8.2) g/dL Albumin 2.4 L (3.5-5.0) g/dL Arterial Blood Potassium (3.4-4.5) mmol/L Arterial Blood Glucose (75-99) mg/dL Crossmatch 01/21/19 01/21/19 01/21/19 Range/Units 20:38 20:45 21:08 WBC 13.4 H (3.8-10.6) k/uL RBC 4.07 L (4.30-5.90) m/uL Hgb 12.6 L (13.0-17.5) gm/dL Hct 38.3 L (39.0-53.0) % Plt Count 148 L (150-450) k/uL Neutrophils # 12.2 H (1.3-7.7) k/uL Lymphocytes # 0.9 L (1.0-4.8) k/uL APTT 30.2 H (22.0-30.0) sec ABG pH (7.35-7.45) ABG pCO2 (35-45) mmHg ABG pO2 (83-108) mmHg ABG HCO3 (21-25) mmol/L ABG Total CO2 (19-24) mmol/L ABG O2 Saturation (94-97) % ABG Hematocrit (34.0-46.0) % ABG Potassium (3.4-4.5) mmol/L ABG Ionized Calcium (4.5-5.3) mg/dL ABG Glucose (75-99) mg/dL ABG Lactic Acid (0.5-1.6) mmol/L Hemoglobin (13.0-17.5) gm/dL Potassium (3.5-5.1) mmol/L Chloride (98-107) mmol/L Glucose (74-99) mg/dL POC Glucose (mg/dL) 131 H (75-99) mg/dL Calcium (8.4-10.2) mg/dL Magnesium (1.6-2.3) mg/dL Total Protein (6.3-8.2) g/dL Albumin (3.5-5.0) g/dL Arterial Blood Potassium (3.4-4.5) mmol/L Arterial Blood Glucose (75-99) mg/dL Crossmatch 01/21/19 01/21/19 01/21/19 Range/Units 22:08 23:00 23:18 WBC (3.8-10.6) k/uL RBC (4.30-5.90) m/uL Hgb (13.0-17.5) gm/dL Hct (39.0-53.0) % Plt Count (150-450) k/uL Neutrophils # (1.3-7.7) k/uL Lymphocytes # (1.0-4.8) k/uL APTT (22.0-30.0) sec ABG pH (7.35-7.45) ABG pCO2 47 H (35-45) mmHg ABG pO2 115 H (83-108) mmHg ABG HCO3 28 H (21-25) mmol/L ABG Total CO2 30 H (19-24) mmol/L ABG O2 Saturation 98.5 H (94-97) % ABG Hematocrit (34.0-46.0) % ABG Potassium (3.4-4.5) mmol/L ABG Ionized Calcium (4.5-5.3) mg/dL ABG Glucose (75-99) mg/dL ABG Lactic Acid (0.5-1.6) mmol/L Hemoglobin (13.0-17.5) gm/dL Potassium (3.5-5.1) mmol/L Chloride (98-107) mmol/L Glucose (74-99) mg/dL POC Glucose (mg/dL) 135 H 112 H (75-99) mg/dL Calcium (8.4-10.2) mg/dL Magnesium (1.6-2.3) mg/dL Total Protein (6.3-8.2) g/dL Albumin (3.5-5.0) g/dL Arterial Blood Potassium (3.4-4.5) mmol/L Arterial Blood Glucose (75-99) mg/dL Crossmatch 01/21/19 01/21/19 01/22/19 Range/Units 23:24 23:34 00:08 WBC 14.3 H (3.8-10.6) k/uL RBC 4.20 L (4.30-5.90) m/uL Hgb 12.8 L (13.0-17.5) gm/dL Hct 38.8 L (39.0-53.0) % Plt Count 139 L (150-450) k/uL Neutrophils # 13.1 H (1.3-7.7) k/uL Lymphocytes # 0.8 L (1.0-4.8) k/uL APTT (22.0-30.0) sec ABG pH (7.35-7.45) ABG pCO2 51 H (35-45) mmHg ABG pO2 120 H (83-108) mmHg ABG HCO3 28 H (21-25) mmol/L ABG Total CO2 30 H (19-24) mmol/L ABG O2 Saturation 98.6 H (94-97) % ABG Hematocrit (34.0-46.0) % ABG Potassium (3.4-4.5) mmol/L ABG Ionized Calcium (4.5-5.3) mg/dL ABG Glucose (75-99) mg/dL ABG Lactic Acid (0.5-1.6) mmol/L Hemoglobin (13.0-17.5) gm/dL Potassium (3.5-5.1) mmol/L Chloride (98-107) mmol/L Glucose (74-99) mg/dL POC Glucose (mg/dL) 150 H (75-99) mg/dL Calcium (8.4-10.2) mg/dL Magnesium (1.6-2.3) mg/dL Total Protein (6.3-8.2) g/dL Albumin (3.5-5.0) g/dL Arterial Blood Potassium (3.4-4.5) mmol/L Arterial Blood Glucose (75-99) mg/dL Crossmatch 01/22/19 01/22/19 01/22/19 Range/Units 01:08 02:05 03:02 WBC (3.8-10.6) k/uL RBC (4.30-5.90) m/uL Hgb (13.0-17.5) gm/dL Hct (39.0-53.0) % Plt Count (150-450) k/uL Neutrophils # (1.3-7.7) k/uL Lymphocytes # (1.0-4.8) k/uL APTT (22.0-30.0) sec ABG pH (7.35-7.45) ABG pCO2 (35-45) mmHg ABG pO2 (83-108) mmHg ABG HCO3 (21-25) mmol/L ABG Total CO2 (19-24) mmol/L ABG O2 Saturation (94-97) % ABG Hematocrit (34.0-46.0) % ABG Potassium (3.4-4.5) mmol/L ABG Ionized Calcium (4.5-5.3) mg/dL ABG Glucose (75-99) mg/dL ABG Lactic Acid (0.5-1.6) mmol/L Hemoglobin (13.0-17.5) gm/dL Potassium (3.5-5.1) mmol/L Chloride (98-107) mmol/L Glucose (74-99) mg/dL POC Glucose (mg/dL) 131 H 137 H 149 H (75-99) mg/dL Calcium (8.4-10.2) mg/dL Magnesium (1.6-2.3) mg/dL Total Protein (6.3-8.2) g/dL Albumin (3.5-5.0) g/dL Arterial Blood Potassium (3.4-4.5) mmol/L Arterial Blood Glucose (75-99) mg/dL Crossmatch 01/22/19 01/22/19 01/22/19 Range/Units 03:53 04:44 04:44 WBC 13.2 H (3.8-10.6) k/uL RBC 3.57 L (4.30-5.90) m/uL Hgb 11.3 L (13.0-17.5) gm/dL Hct 33.1 L (39.0-53.0) % Plt Count 132 L (150-450) k/uL Neutrophils # 11.9 H (1.3-7.7) k/uL Lymphocytes # 0.8 L (1.0-4.8) k/uL APTT (22.0-30.0) sec ABG pH (7.35-7.45) ABG pCO2 (35-45) mmHg ABG pO2 (83-108) mmHg ABG HCO3 (21-25) mmol/L ABG Total CO2 (19-24) mmol/L ABG O2 Saturation (94-97) % ABG Hematocrit (34.0-46.0) % ABG Potassium (3.4-4.5) mmol/L ABG Ionized Calcium (4.5-5.3) mg/dL ABG Glucose (75-99) mg/dL ABG Lactic Acid (0.5-1.6) mmol/L Hemoglobin (13.0-17.5) gm/dL Potassium 5.5 H (3.5-5.1) mmol/L Chloride (98-107) mmol/L Glucose 138 H (74-99) mg/dL POC Glucose (mg/dL) 146 H (75-99) mg/dL Calcium (8.4-10.2) mg/dL Magnesium (1.6-2.3) mg/dL Total Protein 5.5 L (6.3-8.2) g/dL Albumin (3.5-5.0) g/dL Arterial Blood Potassium (3.4-4.5) mmol/L Arterial Blood Glucose (75-99) mg/dL Crossmatch 01/22/19 01/22/19 01/22/19 Range/Units 05:00 06:06 06:53 WBC (3.8-10.6) k/uL RBC (4.30-5.90) m/uL Hgb (13.0-17.5) gm/dL Hct (39.0-53.0) % Plt Count (150-450) k/uL Neutrophils # (1.3-7.7) k/uL Lymphocytes # (1.0-4.8) k/uL APTT (22.0-30.0) sec ABG pH (7.35-7.45) ABG pCO2 (35-45) mmHg ABG pO2 (83-108) mmHg ABG HCO3 (21-25) mmol/L ABG Total CO2 (19-24) mmol/L ABG O2 Saturation (94-97) % ABG Hematocrit (34.0-46.0) % ABG Potassium (3.4-4.5) mmol/L ABG Ionized Calcium (4.5-5.3) mg/dL ABG Glucose (75-99) mg/dL ABG Lactic Acid (0.5-1.6) mmol/L Hemoglobin (13.0-17.5) gm/dL Potassium (3.5-5.1) mmol/L Chloride (98-107) mmol/L Glucose (74-99) mg/dL POC Glucose (mg/dL) 151 H 152 H 140 H (75-99) mg/dL Calcium (8.4-10.2) mg/dL Magnesium (1.6-2.3) mg/dL Total Protein (6.3-8.2) g/dL Albumin (3.5-5.0) g/dL Arterial Blood Potassium (3.4-4.5) mmol/L Arterial Blood Glucose (75-99) mg/dL Crossmatch 01/22/19 01/22/19 01/22/19 Range/Units 08:20 09:35 10:26 WBC (3.8-10.6) k/uL RBC (4.30-5.90) m/uL Hgb (13.0-17.5) gm/dL Hct (39.0-53.0) % Plt Count (150-450) k/uL Neutrophils # (1.3-7.7) k/uL Lymphocytes # (1.0-4.8) k/uL APTT (22.0-30.0) sec ABG pH (7.35-7.45) ABG pCO2 (35-45) mmHg ABG pO2 (83-108) mmHg ABG HCO3 (21-25) mmol/L ABG Total CO2 (19-24) mmol/L ABG O2 Saturation (94-97) % ABG Hematocrit (34.0-46.0) % ABG Potassium (3.4-4.5) mmol/L ABG Ionized Calcium (4.5-5.3) mg/dL ABG Glucose (75-99) mg/dL ABG Lactic Acid (0.5-1.6) mmol/L Hemoglobin (13.0-17.5) gm/dL Potassium (3.5-5.1) mmol/L Chloride (98-107) mmol/L Glucose (74-99) mg/dL POC Glucose (mg/dL) 136 H 134 H 125 H (75-99) mg/dL Calcium (8.4-10.2) mg/dL Magnesium (1.6-2.3) mg/dL Total Protein (6.3-8.2) g/dL Albumin (3.5-5.0) g/dL Arterial Blood Potassium (3.4-4.5) mmol/L Arterial Blood Glucose (75-99) mg/dL Crossmatch 01/22/19 Range/Units 11:57 WBC (3.8-10.6) k/uL RBC (4.30-5.90) m/uL Hgb (13.0-17.5) gm/dL Hct (39.0-53.0) % Plt Count (150-450) k/uL Neutrophils # (1.3-7.7) k/uL Lymphocytes # (1.0-4.8) k/uL APTT (22.0-30.0) sec ABG pH (7.35-7.45) ABG pCO2 (35-45) mmHg ABG pO2 (83-108) mmHg ABG HCO3 (21-25) mmol/L ABG Total CO2 (19-24) mmol/L ABG O2 Saturation (94-97) % ABG Hematocrit (34.0-46.0) % ABG Potassium (3.4-4.5) mmol/L ABG Ionized Calcium (4.5-5.3) mg/dL ABG Glucose (75-99) mg/dL ABG Lactic Acid (0.5-1.6) mmol/L Hemoglobin (13.0-17.5) gm/dL Potassium (3.5-5.1) mmol/L Chloride (98-107) mmol/L Glucose (74-99) mg/dL POC Glucose (mg/dL) 117 H (75-99) mg/dL Calcium (8.4-10.2) mg/dL Magnesium (1.6-2.3) mg/dL Total Protein (6.3-8.2) g/dL Albumin (3.5-5.0) g/dL Arterial Blood Potassium (3.4-4.5) mmol/L Arterial Blood Glucose (75-99) mg/dL Crossmatch - Imaging and Cardiology Chest x-ray: report reviewed, image reviewed Assessment and Plan Assessment: 1. Critical left main stenosis, status post urgent CABG 2. Non-STEMI 3. Hyperlipidemia 4. Current tobacco dependence 5. Mild COPD with preoperative FEV1 65% of predicted 6. Significant family history of premature coronary artery disease 7. EtOH abuse Plan: 1. Continue aspirin, statin, Plavix, beta kimberly therapy. Will increase beta kimberly therapy as tolerated. 2. Will initiate norvasc for arterial spasm. Discontinue cardizem gtt after initiation of norvasc. 3. Wean O2 as tolerated. Encourage incentive spirometry 10 times every hour while awake. 4. Increase activity ambulate as tolerated. PT/OT/cardiac rehab following. 5. Will monitor daily labs, x-rays. Electrolyte replacement therapy per protocol. No transfusion 6. Pain control with current medication regimen. Will add Toradol 7. Insulin management per primary care service. 8. Discontinue swan, connect cordis to continuous cvp monitoring. 9. [facility] protocol, assess for alcohol withdrawal. 10. Patient will likely need rehab at discharge as he lives alone. Social work consulted. 11. More recommendations to follow Time with Patient: Greater than 30
--- NOTE | 2019-01-22 13:36 | P.PN ---
Subjective Progress Note Date: 01/22/19 Principal diagnosis: Non-ST elevation NC The patient is a 43-year-old male, active smoker with no significant past medical history who presented to the ED with complaint of chest pain. The patient underwent an extensive evaluation in the ED and was noted to have troponins elevated at 0.081, with EKG that showed dynamic changes during the ED course. The patient's troponins were 0.081, 0.103, and 0.108. The patient underwent an urgent cardiac catheterization which revealed a lesion in the ostium of the left main coronary artery in the range of 95%. Cardiology recommended coronary revascularization, and cardiothoracic surgery was consulted. Patient underwent CABG on 01/21/2019. Patient was seen and examined on 01/22/2019. Patient was extubated last night. He is POD 1 today. Patient reports some mild chest discomfort at the site of incision surgery. He denies any shortness of breath or palpitations. No nausea or vomiting. No fever or chills. Objective - Vital Signs Vital signs: Vital Signs Temp 37.0 F L 01/22/19 08:00 Pulse 89 01/22/19 08:00 Resp 18 01/22/19 08:00 BP 119/79 01/22/19 08:00 Pulse Ox 96 01/22/19 08:00 Intake & Output 01/21/19 01/22/19 01/22/19 18:59 06:59 18:59 Intake Total 447.556 0595.744 63.466 Output Total 1675 1727 100 Balance -1561.600 371.744 -36.534 Weight 86.5 kg Intake: IV 109.5 1996.5 58.5 Albumin Human 25% 50 ml 1000 In Empty Bag 1 bag @ 100 mls/hr IVPB ONCE ONE Rx#: [id number] CO/CI 200 Diltiazem 125 mg In 5 42.5 2.5 Sodium Chloride 0.9% 100 ml @ 5 MG/HR 5 mls/hr IV .Q24H [facility] Rx#:[id number] Lactated Ringers 1,000 ml 50 605 50 @ 20 mls/hr IV .Q24H [facility] Rx#:[id number] Nitroglycerin-D5w Pmx 50 1.5 65 0 mg In Dextrose/Water 1 250ml.bag @ 5 MCG/MIN 1.5 mls/hr IV .Q24H [facility] Rx#: [id number] Pressure bag 84 6 Intake, IV Titration 3.900 102.244 4.966 Amount Clevidipine Butyrate 25 3.900 42.533 mg In Empty Bag 1 bag @ 1 MG/HR 2 mls/hr IV .Q24H [facility] Rx#:[id number] Insulin Regular 100 unit 6.640 4.966 In Sodium Chloride 0.9% 100 ml @ Per Protocol IV .Q0M [facility] Rx#:[id number] Propofol 1,000 mg In 53.071 Empty Bag 1 bag @ Titrate IV .Q0M [facility] Rx#: [id number] Output: Chest Tube Drainage 35 327 10 Chest Tube Bilateral 35 265 10 Mediastinal Chest Tube Left Lateral 0 62 0 Chest Urine 640 1400 90 Estimated Blood Loss 1000 Other: Voiding Method Indwelling Catheter Indwelling Catheter ABP, PAP, CO, CI - Last Documented Arterial Blood Pressure 147/74 Pulmonary Artery Pressure 21/10 Cardiac Output 6.7 Cardiac Index 3.3 - Exam General: [non toxic], [no distress], [appears at stated age] Derm: [warm], [dry] Head: [atraumatic], [normocephalic], [symmetric] Eyes: [EOMI], [no lid lag], [anicteric sclera] Mouth: [no lip lesion], [mucus membranes moist] Cardiovascular: [S1S2 reg], [no murmur], [positive posterior tibial pulse bilateral], [holding heart hugger], [mediastinal chest tube, left pleural chest tube with serosanguineous drainage] Lungs: [CTA bilateral], [no rhonchi, no rales] , [no accessory muscle use] Abdominal: [soft], [ nontender to palpation], [no guarding], [no appreciable organomegaly] Ext: [no gross muscle atrophy], [no edema], [no contractures], [CHRISTINA drain left upper extremity] Neuro: [no focal neuro deficits] Psych: [Alert], [oriented], [appropriate affect] - Labs CBC & Chem 7: 01/22/19 04:44 01/22/19 04:44 Labs: Abnormal Lab Results - Last 24 Hours (Table) 01/20/19 01/21/19 01/21/19 Range/Units 06:40 11:38 12:46 WBC (3.8-10.6) k/uL RBC (4.30-5.90) m/uL Hgb (13.0-17.5) gm/dL Hct (39.0-53.0) % Plt Count (150-450) k/uL Neutrophils # (1.3-7.7) k/uL Lymphocytes # (1.0-4.8) k/uL APTT (22.0-30.0) sec ABG pH 7.32 L (7.35-7.45) ABG pCO2 55 H (35-45) mmHg ABG pO2 141 H (83-108) mmHg ABG HCO3 27 H 28 H (21-25) mmol/L ABG Total CO2 29 H 30 H (19-24) mmol/L ABG O2 Saturation 97.3 H 99.0 H (94-97) % ABG Hematocrit (34.0-46.0) % ABG Potassium (3.4-4.5) mmol/L ABG Ionized Calcium (4.5-5.3) mg/dL ABG Glucose 106 H 122 H (75-99) mg/dL ABG Lactic Acid (0.5-1.6) mmol/L Hemoglobin (13.0-17.5) gm/dL Potassium (3.5-5.1) mmol/L Chloride (98-107) mmol/L Glucose (74-99) mg/dL POC Glucose (mg/dL) (75-99) mg/dL Calcium (8.4-10.2) mg/dL Magnesium (1.6-2.3) mg/dL Total Protein (6.3-8.2) g/dL Albumin (3.5-5.0) g/dL Arterial Blood Potassium (3.4-4.5) mmol/L Arterial Blood Glucose 106 H 122 H (75-99) mg/dL Crossmatch See Detail 01/21/19 01/21/19 01/21/19 Range/Units 13:43 14:13 14:42 WBC (3.8-10.6) k/uL RBC (4.30-5.90) m/uL Hgb (13.0-17.5) gm/dL Hct (39.0-53.0) % Plt Count (150-450) k/uL Neutrophils # (1.3-7.7) k/uL Lymphocytes # (1.0-4.8) k/uL APTT (22.0-30.0) sec ABG pH 7.33 L (7.35-7.45) ABG pCO2 48 H 48 H (35-45) mmHg ABG pO2 >420 H 234 H 387 H (83-108) mmHg ABG HCO3 27 H 26 H (21-25) mmol/L ABG Total CO2 27 H 28 H 27 H (19-24) mmol/L ABG O2 Saturation 100.0 H 99.9 H 100.0 H (94-97) % ABG Hematocrit 33 L 30 L 30 L (34.0-46.0) % ABG Potassium 5.9 H 5.0 H (3.4-4.5) mmol/L ABG Ionized Calcium 4.1 L 4.3 L 4.3 L (4.5-5.3) mg/dL ABG Glucose 118 H 232 H 203 H (75-99) mg/dL ABG Lactic Acid (0.5-1.6) mmol/L Hemoglobin 10.6 L 9.8 L 9.7 L (13.0-17.5) gm/dL Potassium (3.5-5.1) mmol/L Chloride (98-107) mmol/L Glucose (74-99) mg/dL POC Glucose (mg/dL) (75-99) mg/dL Calcium (8.4-10.2) mg/dL Magnesium (1.6-2.3) mg/dL Total Protein (6.3-8.2) g/dL Albumin (3.5-5.0) g/dL Arterial Blood Potassium 5.9 H 5.0 H (3.4-4.5) mmol/L Arterial Blood Glucose 118 H 232 H 203 H (75-99) mg/dL Crossmatch 01/21/19 01/21/19 01/21/19 Range/Units 15:41 17:11 17:40 WBC (3.8-10.6) k/uL RBC 3.66 L (4.30-5.90) m/uL Hgb 11.4 L (13.0-17.5) gm/dL Hct 33.5 L (39.0-53.0) % Plt Count 115 L (150-450) k/uL Neutrophils # (1.3-7.7) k/uL Lymphocytes # (1.0-4.8) k/uL APTT (22.0-30.0) sec ABG pH (7.35-7.45) ABG pCO2 48 H (35-45) mmHg ABG pO2 341 H 79 L (83-108) mmHg ABG HCO3 27 H (21-25) mmol/L ABG Total CO2 27 H 28 H (19-24) mmol/L ABG O2 Saturation 100.0 H (94-97) % ABG Hematocrit 28 L 30 L (34.0-46.0) % ABG Potassium 4.7 H (3.4-4.5) mmol/L ABG Ionized Calcium 4.3 L (4.5-5.3) mg/dL ABG Glucose 190 H 116 H (75-99) mg/dL ABG Lactic Acid 2.3 H* (0.5-1.6) mmol/L Hemoglobin 9.3 L 9.8 L (13.0-17.5) gm/dL Potassium (3.5-5.1) mmol/L Chloride (98-107) mmol/L Glucose (74-99) mg/dL POC Glucose (mg/dL) (75-99) mg/dL Calcium (8.4-10.2) mg/dL Magnesium (1.6-2.3) mg/dL Total Protein (6.3-8.2) g/dL Albumin (3.5-5.0) g/dL Arterial Blood Potassium 4.7 H (3.4-4.5) mmol/L Arterial Blood Glucose 190 H 116 H (75-99) mg/dL Crossmatch 01/21/19 01/21/19 01/21/19 Range/Units 17:40 18:30 20:01 WBC (3.8-10.6) k/uL RBC (4.30-5.90) m/uL Hgb (13.0-17.5) gm/dL Hct (39.0-53.0) % Plt Count (150-450) k/uL Neutrophils # (1.3-7.7) k/uL Lymphocytes # (1.0-4.8) k/uL APTT (22.0-30.0) sec ABG pH 7.26 L (7.35-7.45) ABG pCO2 63 H (35-45) mmHg ABG pO2 110 H (83-108) mmHg ABG HCO3 28 H (21-25) mmol/L ABG Total CO2 30 H (19-24) mmol/L ABG O2 Saturation 97.4 H (94-97) % ABG Hematocrit (34.0-46.0) % ABG Potassium (3.4-4.5) mmol/L ABG Ionized Calcium (4.5-5.3) mg/dL ABG Glucose (75-99) mg/dL ABG Lactic Acid (0.5-1.6) mmol/L Hemoglobin (13.0-17.5) gm/dL Potassium (3.5-5.1) mmol/L Chloride 110 H (98-107) mmol/L Glucose (74-99) mg/dL POC Glucose (mg/dL) 157 H (75-99) mg/dL Calcium 7.9 L (8.4-10.2) mg/dL Magnesium 2.6 H (1.6-2.3) mg/dL Total Protein 4.2 L (6.3-8.2) g/dL Albumin 2.4 L (3.5-5.0) g/dL Arterial Blood Potassium (3.4-4.5) mmol/L Arterial Blood Glucose (75-99) mg/dL Crossmatch 01/21/19 01/21/19 01/21/19 Range/Units 20:38 20:45 21:08 WBC 13.4 H (3.8-10.6) k/uL RBC 4.07 L (4.30-5.90) m/uL Hgb 12.6 L (13.0-17.5) gm/dL Hct 38.3 L (39.0-53.0) % Plt Count 148 L (150-450) k/uL Neutrophils # 12.2 H (1.3-7.7) k/uL Lymphocytes # 0.9 L (1.0-4.8) k/uL APTT 30.2 H (22.0-30.0) sec ABG pH (7.35-7.45) ABG pCO2 (35-45) mmHg ABG pO2 (83-108) mmHg ABG HCO3 (21-25) mmol/L ABG Total CO2 (19-24) mmol/L ABG O2 Saturation (94-97) % ABG Hematocrit (34.0-46.0) % ABG Potassium (3.4-4.5) mmol/L ABG Ionized Calcium (4.5-5.3) mg/dL ABG Glucose (75-99) mg/dL ABG Lactic Acid (0.5-1.6) mmol/L Hemoglobin (13.0-17.5) gm/dL Potassium (3.5-5.1) mmol/L Chloride (98-107) mmol/L Glucose (74-99) mg/dL POC Glucose (mg/dL) 131 H (75-99) mg/dL Calcium (8.4-10.2) mg/dL Magnesium (1.6-2.3) mg/dL Total Protein (6.3-8.2) g/dL Albumin (3.5-5.0) g/dL Arterial Blood Potassium (3.4-4.5) mmol/L Arterial Blood Glucose (75-99) mg/dL Crossmatch 01/21/19 01/21/19 01/21/19 Range/Units 22:08 23:00 23:18 WBC (3.8-10.6) k/uL RBC (4.30-5.90) m/uL Hgb (13.0-17.5) gm/dL Hct (39.0-53.0) % Plt Count (150-450) k/uL Neutrophils # (1.3-7.7) k/uL Lymphocytes # (1.0-4.8) k/uL APTT (22.0-30.0) sec ABG pH (7.35-7.45) ABG pCO2 47 H (35-45) mmHg ABG pO2 115 H (83-108) mmHg ABG HCO3 28 H (21-25) mmol/L ABG Total CO2 30 H (19-24) mmol/L ABG O2 Saturation 98.5 H (94-97) % ABG Hematocrit (34.0-46.0) % ABG Potassium (3.4-4.5) mmol/L ABG Ionized Calcium (4.5-5.3) mg/dL ABG Glucose (75-99) mg/dL ABG Lactic Acid (0.5-1.6) mmol/L Hemoglobin (13.0-17.5) gm/dL Potassium (3.5-5.1) mmol/L Chloride (98-107) mmol/L Glucose (74-99) mg/dL POC Glucose (mg/dL) 135 H 112 H (75-99) mg/dL Calcium (8.4-10.2) mg/dL Magnesium (1.6-2.3) mg/dL Total Protein (6.3-8.2) g/dL Albumin (3.5-5.0) g/dL Arterial Blood Potassium (3.4-4.5) mmol/L Arterial Blood Glucose (75-99) mg/dL Crossmatch 01/21/19 01/21/19 01/22/19 Range/Units 23:24 23:34 00:08 WBC 14.3 H (3.8-10.6) k/uL RBC 4.20 L (4.30-5.90) m/uL Hgb 12.8 L (13.0-17.5) gm/dL Hct 38.8 L (39.0-53.0) % Plt Count 139 L (150-450) k/uL Neutrophils # 13.1 H (1.3-7.7) k/uL Lymphocytes # 0.8 L (1.0-4.8) k/uL APTT (22.0-30.0) sec ABG pH (7.35-7.45) ABG pCO2 51 H (35-45) mmHg ABG pO2 120 H (83-108) mmHg ABG HCO3 28 H (21-25) mmol/L ABG Total CO2 30 H (19-24) mmol/L ABG O2 Saturation 98.6 H (94-97) % ABG Hematocrit (34.0-46.0) % ABG Potassium (3.4-4.5) mmol/L ABG Ionized Calcium (4.5-5.3) mg/dL ABG Glucose (75-99) mg/dL ABG Lactic Acid (0.5-1.6) mmol/L Hemoglobin (13.0-17.5) gm/dL Potassium (3.5-5.1) mmol/L Chloride (98-107) mmol/L Glucose (74-99) mg/dL POC Glucose (mg/dL) 150 H (75-99) mg/dL Calcium (8.4-10.2) mg/dL Magnesium (1.6-2.3) mg/dL Total Protein (6.3-8.2) g/dL Albumin (3.5-5.0) g/dL Arterial Blood Potassium (3.4-4.5) mmol/L Arterial Blood Glucose (75-99) mg/dL Crossmatch 01/22/19 01/22/19 01/22/19 Range/Units 01:08 02:05 03:02 WBC (3.8-10.6) k/uL RBC (4.30-5.90) m/uL Hgb (13.0-17.5) gm/dL Hct (39.0-53.0) % Plt Count (150-450) k/uL Neutrophils # (1.3-7.7) k/uL Lymphocytes # (1.0-4.8) k/uL APTT (22.0-30.0) sec ABG pH (7.35-7.45) ABG pCO2 (35-45) mmHg ABG pO2 (83-108) mmHg ABG HCO3 (21-25) mmol/L ABG Total CO2 (19-24) mmol/L ABG O2 Saturation (94-97) % ABG Hematocrit (34.0-46.0) % ABG Potassium (3.4-4.5) mmol/L ABG Ionized Calcium (4.5-5.3) mg/dL ABG Glucose (75-99) mg/dL ABG Lactic Acid (0.5-1.6) mmol/L Hemoglobin (13.0-17.5) gm/dL Potassium (3.5-5.1) mmol/L Chloride (98-107) mmol/L Glucose (74-99) mg/dL POC Glucose (mg/dL) 131 H 137 H 149 H (75-99) mg/dL Calcium (8.4-10.2) mg/dL Magnesium (1.6-2.3) mg/dL Total Protein (6.3-8.2) g/dL Albumin (3.5-5.0) g/dL Arterial Blood Potassium (3.4-4.5) mmol/L Arterial Blood Glucose (75-99) mg/dL Crossmatch 01/22/19 01/22/19 01/22/19 Range/Units 03:53 04:44 04:44 WBC 13.2 H (3.8-10.6) k/uL RBC 3.57 L (4.30-5.90) m/uL Hgb 11.3 L (13.0-17.5) gm/dL Hct 33.1 L (39.0-53.0) % Plt Count 132 L (150-450) k/uL Neutrophils # 11.9 H (1.3-7.7) k/uL Lymphocytes # 0.8 L (1.0-4.8) k/uL APTT (22.0-30.0) sec ABG pH (7.35-7.45) ABG pCO2 (35-45) mmHg ABG pO2 (83-108) mmHg ABG HCO3 (21-25) mmol/L ABG Total CO2 (19-24) mmol/L ABG O2 Saturation (94-97) % ABG Hematocrit (34.0-46.0) % ABG Potassium (3.4-4.5) mmol/L ABG Ionized Calcium (4.5-5.3) mg/dL ABG Glucose (75-99) mg/dL ABG Lactic Acid (0.5-1.6) mmol/L Hemoglobin (13.0-17.5) gm/dL Potassium 5.5 H (3.5-5.1) mmol/L Chloride (98-107) mmol/L Glucose 138 H (74-99) mg/dL POC Glucose (mg/dL) 146 H (75-99) mg/dL Calcium (8.4-10.2) mg/dL Magnesium (1.6-2.3) mg/dL Total Protein 5.5 L (6.3-8.2) g/dL Albumin (3.5-5.0) g/dL Arterial Blood Potassium (3.4-4.5) mmol/L Arterial Blood Glucose (75-99) mg/dL Crossmatch 01/22/19 01/22/19 01/22/19 Range/Units 05:00 06:06 06:53 WBC (3.8-10.6) k/uL RBC (4.30-5.90) m/uL Hgb (13.0-17.5) gm/dL Hct (39.0-53.0) % Plt Count (150-450) k/uL Neutrophils # (1.3-7.7) k/uL Lymphocytes # (1.0-4.8) k/uL APTT (22.0-30.0) sec ABG pH (7.35-7.45) ABG pCO2 (35-45) mmHg ABG pO2 (83-108) mmHg ABG HCO3 (21-25) mmol/L ABG Total CO2 (19-24) mmol/L ABG O2 Saturation (94-97) % ABG Hematocrit (34.0-46.0) % ABG Potassium (3.4-4.5) mmol/L ABG Ionized Calcium (4.5-5.3) mg/dL ABG Glucose (75-99) mg/dL ABG Lactic Acid (0.5-1.6) mmol/L Hemoglobin (13.0-17.5) gm/dL Potassium (3.5-5.1) mmol/L Chloride (98-107) mmol/L Glucose (74-99) mg/dL POC Glucose (mg/dL) 151 H 152 H 140 H (75-99) mg/dL Calcium (8.4-10.2) mg/dL Magnesium (1.6-2.3) mg/dL Total Protein (6.3-8.2) g/dL Albumin (3.5-5.0) g/dL Arterial Blood Potassium (3.4-4.5) mmol/L Arterial Blood Glucose (75-99) mg/dL Crossmatch 01/22/19 Range/Units 08:20 WBC (3.8-10.6) k/uL RBC (4.30-5.90) m/uL Hgb (13.0-17.5) gm/dL Hct (39.0-53.0) % Plt Count (150-450) k/uL Neutrophils # (1.3-7.7) k/uL Lymphocytes # (1.0-4.8) k/uL APTT (22.0-30.0) sec ABG pH (7.35-7.45) ABG pCO2 (35-45) mmHg ABG pO2 (83-108) mmHg ABG HCO3 (21-25) mmol/L ABG Total CO2 (19-24) mmol/L ABG O2 Saturation (94-97) % ABG Hematocrit (34.0-46.0) % ABG Potassium (3.4-4.5) mmol/L ABG Ionized Calcium (4.5-5.3) mg/dL ABG Glucose (75-99) mg/dL ABG Lactic Acid (0.5-1.6) mmol/L Hemoglobin (13.0-17.5) gm/dL Potassium (3.5-5.1) mmol/L Chloride (98-107) mmol/L Glucose (74-99) mg/dL POC Glucose (mg/dL) 136 H (75-99) mg/dL Calcium (8.4-10.2) mg/dL Magnesium (1.6-2.3) mg/dL Total Protein (6.3-8.2) g/dL Albumin (3.5-5.0) g/dL Arterial Blood Potassium (3.4-4.5) mmol/L Arterial Blood Glucose (75-99) mg/dL Crossmatch Assessment and Plan Assessment: Assessment and Plan 1. non-ST elevation NC status post CABG POD 1 2. Hypertension 3. Overweight 4. History of smoking 1. Troponin 0.081, 0.103, 0.[address] and T-wave abnormalities. Cardiac cath on January 18 shows 95% of ostium left main. Echocardiogram showing EF 60-65% with mild concentric LVH. Cardiology consulted, recommends cardiothoracic surgery consult for CABG. CABG 01/21/2019. Extubated 01/22/2019. Plan: Management as per cardiothoracic surgery. Continue aspirin, Plavix and statin. Continue metoprolol. 2. BP 115/76. Plan: Continue metoprolol and amlodipine. Monitor vitals, adjust medications as necessary. 3. BMI 28.2. Risk factor for CAD. Plan: Structured weight loss program. 4. Risk factor for CAD. Plan: Quit. Patient progressing well after surgery. Pending clinical improvement. Continue incentive spirometry.
[2019-01-22] MEDS: LACTATED RINGERS 1,000 ML IV SCH (13:58)
[2019-01-22 15:00] LABS: Glucose,Whole Blood 101 mg/dL (75-99)
[2019-01-22 15:13] LABS: Glucose,Whole Blood 116 mg/dL (75-99)
[2019-01-22] MEDS: THIAMINE 100 MG TAB PO SCH ×2 (16:05→16:06)
[2019-01-22 16:13] LABS: Glucose,Whole Blood 116 mg/dL (75-99)
[2019-01-22] MEDS: HYDROcodone/APAP 5-325MG 1 EACH TAB PO PRN ×2 (17:20→21:16)
[2019-01-22] MEDS ORDERED: BISACODYL 10 MG SUPP RECTAL PRN (17:31)
[2019-01-22] MEDS ORDERED: MAGNESIUM HYDROXIDE 2,400 MG/10 ML CUP PO PRN (17:31)
[2019-01-22 17:50] LABS: Glucose,Whole Blood 109 mg/dL (75-99)
[2019-01-22 20:05] LABS: Glucose,Whole Blood 125 mg/dL (75-99)
[2019-01-22] MEDS: INSULIN REGULAR 100 UNIT in SODIUM CHLORIDE 0.9% 100 ML IV SCH (20:15)
[2019-01-22] MEDS: SENNOSIDES-DOCUSATE SODIUM 1 EACH TAB PO SCH (21:09)
[2019-01-22 21:57] LABS: Glucose,Whole Blood 93 mg/dL (75-99)
[2019-01-23 00:39] LABS: Glucose,Whole Blood 169 mg/dL (75-99)
[2019-01-23 00:57] LABS: Glucose,Whole Blood 107 mg/dL (75-99)
[2019-01-23 02:13] LABS: Glucose,Whole Blood 109 mg/dL (75-99)
[2019-01-23 03:18] LABS: Glucose,Whole Blood 107 mg/dL (75-99)
[2019-01-23 04:06] LABS: Glucose,Whole Blood 120 mg/dL (75-99)
[2019-01-23] MEDS: HYDROcodone/APAP 5-325MG 1 EACH TAB PO PRN ×2 (05:08→21:25)
[2019-01-23 05:46] LABS: Glucose,Whole Blood 107 mg/dL (75-99)
[2019-01-23 06:04] LABS: Basophils % (A) 0 %; Eosinophils % (A) 0 %; HCT 29.3 % (39.0-53.0); Lymphocytes # (A) 2.2 k/uL (1.0-4.8); Lymphocytes % (A) 18 %; MCH 31.3 pg (25.0-35.0); MCHC 34.2 g/dL (31.0-37.0); MCV 91.4 fL (80.0-100.0); Mean Platelet Volume 8.8; Monocytes # (A) 0.7 k/uL (0-1.0); Monocytes % (A) 6 %; Neutrophils # (A) 8.9 k/uL (1.3-7.7); Neutrophils % (A) 74 %; Platelet Count 124 k/uL (150-450); RDW 14.2 % (11.5-15.5)
[2019-01-23 06:10] LABS: Ionized Calcium 4.9 mg/dL (4.5-5.3)
[2019-01-23 06:16] LABS: ALT 22 U/L (21-72); AST 37 U/L (17-59); Albumin 3.5 g/dL (3.5-5.0); Alkaline Phosphatase 50 U/L (38-126); Anion Gap 6 mmol/L; Blood Urea Nitrogen 14 mg/dL (9-20); Calcium 9.1 mg/dL (8.4-10.2); Carbon Dioxide 29 mmol/L (22-30); Chloride 103 mmol/L (98-107); Glucose 99 mg/dL (74-99); Potassium 4.5 mmol/L (3.5-5.1); Sodium 138 mmol/L (137-145); Total Bilirubin 0.7 mg/dL (0.2-1.3); Total Protein 5.4 g/dL (6.3-8.2)
[2019-01-23 06:19] LABS: Glucose,Whole Blood 112 mg/dL (75-99)
[2019-01-23] MEDS: KETOROLAC 30 MG/ML 1 ML VIAL IVP SCH ×3 (06:19→17:06)
[2019-01-23] MEDS ORDERED: PHENYLEPHRINE 40 MG in SODIUM CHLORIDE 0.9% 250 ML IV SCH (06:54)
--- NOTE | 2019-01-23 07:02 | P.PN ---
Subjective Progress Note Date: 01/23/19 Principal diagnosis: Acute non-ST deviation MS This is a pleasant 43-year-old gentleman with history of smoking and significant family history of coronary artery disease presented to the emergency room with a chest discomfort and he was found to have mildly abnormal cardiac enzymes as well as ST changes in the inferolateral leads highly suggestive of severe underlying coronary artery disease. Because of that the patient underwent a heart catheterization last night showed critical disease involving the left main coronary artery. He underwent coronary artery bypass grafting 3 with VELASQUEZ to LAD, radial to OM, and vein graft to RCA. On follow-up with the patient today, January [id number], this is postoperative operation day #2. The patient is doing better today. He is hemodynamically stable beside being slightly tachycardic. I would suggest increasing the dose of metoprolol. Beside that he continues to be on dual antiplatelet therapy along with a statin as well as Norvasc for the radial graft. Objective - Vital Signs Vital signs: Vital Signs Temp 98.5 F 01/23/19 04:00 Pulse 89 01/23/19 06:00 Resp 26 H 01/23/19 06:00 BP 145/94 01/23/19 06:00 Pulse Ox 96 01/23/19 06:00 Intake & Output 01/22/19 01/23/19 01/23/19 18:59 06:59 18:59 Intake Total 799.976 629.545 Output Total 1370 1235 Balance -570.024 -605.455 Weight 86.5 kg 84.9 kg Intake: IV 438.5 220 Diltiazem 125 mg In 2.5 Sodium Chloride 0.9% 100 ml @ 5 MG/HR 5 mls/hr IV .Q24H [facility] Rx#:[id number] Lactated Ringers 1,000 ml 400 220 @ 20 mls/hr IV .Q24H [facility] Rx#:[id number] Nitroglycerin-D5w Pmx 50 0 mg In Dextrose/Water 1 250ml.bag @ 5 MCG/MIN 1.5 mls/hr IV .Q24H [facility] Rx#: [id number] Pressure bag 36 Intake, IV Titration 161.476 9.545 Amount Diltiazem 125 mg In 72.083 Sodium Chloride 0.9% 100 ml @ 5 MG/HR 5 mls/hr IV .Q24H [facility] Rx#:[id number] Insulin Regular 100 unit 16.581 9.545 In Sodium Chloride 0.9% 100 ml @ Per Protocol IV .Q0M [facility] Rx#:[id number] Milrinone-D5w Pmx 20 mg 72.812 In Dextrose/Water 1 100ml .bag @ 0.2 MCG/KG/MIN 4. 956 mls/hr IV .[id number] [facility] Rx#:[id number] Oral 200 400 Output: Chest Tube Drainage 340 120 Chest Tube Bilateral 195 80 Mediastinal Chest Tube Left Lateral 145 40 Chest Drainage 60 Left Wrist 60 Urine 970 1115 Other: Voiding Method Indwelling Catheter Indwelling Catheter ABP, PAP, CO, CI - Last Documented Arterial Blood Pressure 147/74 Pulmonary Artery Pressure 30/15 Cardiac Output 6.5 Cardiac Index 3.2 - Constitutional General appearance: Present: no acute distress - Respiratory Respiratory: bilateral: CTA - Cardiovascular Rhythm: regular Heart sounds: normal: S1, S2 - Labs CBC & Chem 7: 01/23/19 05:49 01/23/19 05:49 Labs: Abnormal Lab Results - Last 24 Hours (Table) 01/22/19 01/22/19 01/22/19 Range/Units 08:20 09:35 10:26 WBC (3.8-10.6) k/uL RBC (4.30-5.90) m/uL Hgb (13.0-17.5) gm/dL Hct (39.0-53.0) % Plt Count (150-450) k/uL Neutrophils # (1.3-7.7) k/uL POC Glucose (mg/dL) 136 H 134 H 125 H (75-99) mg/dL Total Protein (6.3-8.2) g/dL 01/22/19 01/22/19 01/22/19 Range/Units 11:57 14:09 15:08 WBC (3.8-10.6) k/uL RBC (4.30-5.90) m/uL Hgb (13.0-17.5) gm/dL Hct (39.0-53.0) % Plt Count (150-450) k/uL Neutrophils # (1.3-7.7) k/uL POC Glucose (mg/dL) 117 H 101 H 116 H (75-99) mg/dL Total Protein (6.3-8.2) g/dL 01/22/19 01/22/19 01/22/19 Range/Units 16:09 17:48 19:57 WBC (3.8-10.6) k/uL RBC (4.30-5.90) m/uL Hgb (13.0-17.5) gm/dL Hct (39.0-53.0) % Plt Count (150-450) k/uL Neutrophils # (1.3-7.7) k/uL POC Glucose (mg/dL) 116 H 109 H 125 H (75-99) mg/dL Total Protein (6.3-8.2) g/dL 01/23/19 01/23/19 01/23/19 Range/Units 00:02 00:54 01:57 WBC (3.8-10.6) k/uL RBC (4.30-5.90) m/uL Hgb (13.0-17.5) gm/dL Hct (39.0-53.0) % Plt Count (150-450) k/uL Neutrophils # (1.3-7.7) k/uL POC Glucose (mg/dL) 169 H 107 H 109 H (75-99) mg/dL Total Protein (6.3-8.2) g/dL 01/23/19 01/23/19 01/23/19 Range/Units 03:04 04:02 05:13 WBC (3.8-10.6) k/uL RBC (4.30-5.90) m/uL Hgb (13.0-17.5) gm/dL Hct (39.0-53.0) % Plt Count (150-450) k/uL Neutrophils # (1.3-7.7) k/uL POC Glucose (mg/dL) 107 H 120 H 107 H (75-99) mg/dL Total Protein (6.3-8.2) g/dL 01/23/19 01/23/19 01/23/19 Range/Units 05:49 05:49 06:17 WBC 12.0 H (3.8-10.6) k/uL RBC 3.20 L (4.30-5.90) m/uL Hgb 10.0 L (13.0-17.5) gm/dL Hct 29.3 L (39.0-53.0) % Plt Count 124 L (150-450) k/uL Neutrophils # 8.9 H (1.3-7.7) k/uL POC Glucose (mg/dL) 112 H (75-99) mg/dL Total Protein 5.4 L (6.3-8.2) g/dL Assessment and Plan Assessment: Assessment #1 acute non-ST deviation myocardial infarction #2 severe left main coronary artery disease and status post CABG #3 history of smoking #4 significant family history of coronary artery disease Plan #1 continue the current medical regimen #2 continue Norvasc #3 I would suggest increase the dose of metoprolol #4 follow-up with the patient
--- NOTE | 2019-01-23 07:19 | XR ---
EXAMINATION TYPE: XR chest 1V portable DATE OF EXAM: 01/23/2019 COMPARISON: 01/22/2019 HISTORY: SOB, Follow Up FINDINGS: Left basilar chest tube is in place. No evidence for sizable pneumothorax. Right IJ sheath is noted. The patchy basilar infiltrates persist. Stable appearance of the cardio-mediastinal structures at this time. Pleural effusion unchanged. IMPRESSION: 1. Stable portable chest. Clinical correlation and follow up until resolution is recommended.
[2019-01-23 07:28] LABS: Glucose,Whole Blood 130 mg/dL (75-99)
[2019-01-23] MEDS: IPRATROPIUM-ALBUTEROL 3 ML NEB INHALATION SCH ×4 (07:31→20:53)
[2019-01-23 09:04] LABS: Glucose,Whole Blood 172 mg/dL (75-99)
[2019-01-23] MEDS ORDERED: FUROSEMIDE 10 MG/ML 2 ML VIAL IV ONE (09:31)
--- NOTE | 2019-01-23 09:31 | P.PN ---
Subjective Progress Note Date: 01/23/19 Principal diagnosis: Critical left main coronary artery disease, non-STEMI. Previous medical history of untreated hyperlipidemia, current tobacco dependence, mild COPD with preope rative FEV1 65% of predicted, and family history of premature coronary artery disease. POD #2 urgent coronary bypass grafting 3 vessels, left internal mammary artery to the left anterior superior descending artery, radial artery to the obtuse marginal artery, reverse saphenous vein graft to the posterior lateral branch of the right coronary artery, endoscopic vein harvest of the bilateral greater saphenous veins from the knee to the thigh, epi-aortic ultrasound, intraoperative transesophageal echocardiogram, endoscopic harvesting of the left radial artery. Postoperative acute blood loss anemia, expected outcome of surgery given cardiopulmonary bypass pump and hemodilution The patient is currently sitting up in the recliner in the intensive care unit in no acute distress. He does complain of post surgical pain which is controlled on current medication regimine. Remains in normal sinus rhythm, hemodynamically stable on no inotropes or pressors. No new complaints. Ambulated in the hallway this morning. Objective - Vital Signs Vital signs: Vital Signs Temp 98.5 F 01/23/19 04:00 Pulse 95 01/23/19 07:43 Resp 26 H 01/23/19 06:00 BP 145/94 01/23/19 06:00 Pulse Ox 98 01/23/19 07:32 Intake & Output 01/22/19 01/23/19 01/23/19 18:59 06:59 18:59 Intake Total 799.976 629.545 0 Output Total 1370 1330 Balance -570.024 -700.455 0 Weight 86.5 kg 84.9 kg Intake: IV 438.5 220 Diltiazem 125 mg In 2.5 Sodium Chloride 0.9% 100 ml @ 5 MG/HR 5 mls/hr IV .Q24H [facility] Rx#:[id number] Lactated Ringers 1,000 ml 400 220 @ 20 mls/hr IV .Q24H [facility] Rx#:[id number] Nitroglycerin-D5w Pmx 50 0 mg In Dextrose/Water 1 250ml.bag @ 5 MCG/MIN 1.5 mls/hr IV .Q24H [facility] Rx#: [id number] Pressure bag 36 Intake, IV Titration 161.476 9.545 0 Amount Diltiazem 125 mg In 72.083 Sodium Chloride 0.9% 100 ml @ 5 MG/HR 5 mls/hr IV .Q24H [facility] Rx#:[id number] Insulin Regular 100 unit 16.581 9.545 0 In Sodium Chloride 0.9% 100 ml @ Per Protocol IV .Q0M [facility] Rx#:[id number] Milrinone-D5w Pmx 20 mg 72.812 In Dextrose/Water 1 100ml .bag @ 0.2 MCG/KG/MIN 4. 956 mls/hr IV .[id number] [facility] Rx#:[id number] Oral 200 400 Output: Chest Tube Drainage 340 200 Chest Tube Bilateral 195 130 Mediastinal Chest Tube Left Lateral 145 70 Chest Drainage 60 15 Left Wrist 60 15 Urine 970 1115 Other: Voiding Method Indwelling Catheter Indwelling Catheter ABP, PAP, CO, CI - Last Documented Arterial Blood Pressure 147/74 Pulmonary Artery Pressure 30/15 Cardiac Output 6.5 Cardiac Index 3.2 - Constitutional General appearance: Present: cooperative, no acute distress - Respiratory Details: Lungs sounds diminished bilaterally. Respirations even, nonlabored. Currently on 3 L nasal cannula with oxygen saturation 96%. Able to achieve 500 mL on his incentive spirometry. Weak cough. Mediastinal chest tube to continuous wall suction, 40 mL serosanguineous drainage overnight, 250 mL in the last 24 hours. Left pleural chest tube to continuous wall suction, 20 mL serosanguineous drainage overnight, 90 mL in the last 24 hours. No air leaks present. - Cardiovascular Details: S1, S2 present. Regular rate and rhythm, sinus rhythm on telemetry. Sternum stable. A/V epicardial pacemaker wires present, grounded. Palpable peripheral pulses bilaterally. No edema present. No calf pain or tenderness noted. Right internal jugular cordis present. Heart hugger in place with patient demonstrat ing appropriate use. Antiembolism stockings, SCDs present. - Gastrointestinal Gastrointestinal Comment(s): Abdomen soft, nontender, nondistended. Active bowel sounds 4 quadrants. Tolerating clear liquids. Positive flatus, negative bowel movement. - Genitourinary Genitourinary Comment(s): Whyte present draining clear, yellow urine. Output 50-100 mL/h overnight. - Integumentary Integumentary Comment(s): Skin is warm and dry with evidence of good perfusion. Anterior chest incision well approximated and covered with dry intact dressing. Left radial artery harvest site well approximated, CHRISTINA drain present with minimal drainage. Bilateral lower extremity EVH sites well approximated. - Neurologic Neurologic: Present: CNII-XII intact - Musculoskeletal Musculoskeletal: Present: gait normal, strength equal bilaterally - Psychiatric Psychiatric: Present: A&O x's 3, appropriate affect, intact judgment & insight - Allied health notes Allied health notes reviewed: nursing - Labs CBC & Chem 7: 01/23/19 05:49 01/23/19 05:49 Labs: Abnormal Lab Results - Last 24 Hours (Table) 01/22/19 01/22/19 01/22/19 Range/Units 09:35 10:26 11:57 WBC (3.8-10.6) k/uL RBC (4.30-5.90) m/uL Hgb (13.0-17.5) gm/dL Hct (39.0-53.0) % Plt Count (150-450) k/uL Neutrophils # (1.3-7.7) k/uL POC Glucose (mg/dL) 134 H 125 H 117 H (75-99) mg/dL Total Protein (6.3-8.2) g/dL 01/22/19 01/22/19 01/22/19 Range/Units 14:09 15:08 16:09 WBC (3.8-10.6) k/uL RBC (4.30-5.90) m/uL Hgb (13.0-17.5) gm/dL Hct (39.0-53.0) % Plt Count (150-450) k/uL Neutrophils # (1.3-7.7) k/uL POC Glucose (mg/dL) 101 H 116 H 116 H (75-99) mg/dL Total Protein (6.3-8.2) g/dL 01/22/19 01/22/19 01/23/19 Range/Units 17:48 19:57 00:02 WBC (3.8-10.6) k/uL RBC (4.30-5.90) m/uL Hgb (13.0-17.5) gm/dL Hct (39.0-53.0) % Plt Count (150-450) k/uL Neutrophils # (1.3-7.7) k/uL POC Glucose (mg/dL) 109 H 125 H 169 H (75-99) mg/dL Total Protein (6.3-8.2) g/dL 01/23/19 01/23/19 01/23/19 Range/Units 00:54 01:57 03:04 WBC (3.8-10.6) k/uL RBC (4.30-5.90) m/uL Hgb (13.0-17.5) gm/dL Hct (39.0-53.0) % Plt Count (150-450) k/uL Neutrophils # (1.3-7.7) k/uL POC Glucose (mg/dL) 107 H 109 H 107 H (75-99) mg/dL Total Protein (6.3-8.2) g/dL 01/23/19 01/23/19 01/23/19 Range/Units 04:02 05:13 05:49 WBC 12.0 H (3.8-10.6) k/uL RBC 3.20 L (4.30-5.90) m/uL Hgb 10.0 L (13.0-17.5) gm/dL Hct 29.3 L (39.0-53.0) % Plt Count 124 L (150-450) k/uL Neutrophils # 8.9 H (1.3-7.7) k/uL POC Glucose (mg/dL) 120 H 107 H (75-99) mg/dL Total Protein (6.3-8.2) g/dL 01/23/19 01/23/19 01/23/19 Range/Units 05:49 06:17 07:13 WBC (3.8-10.6) k/uL RBC (4.30-5.90) m/uL Hgb (13.0-17.5) gm/dL Hct (39.0-53.0) % Plt Count (150-450) k/uL Neutrophils # (1.3-7.7) k/uL POC Glucose (mg/dL) 112 H 130 H (75-99) mg/dL Total Protein 5.4 L (6.3-8.2) g/dL 01/23/19 Range/Units 08:38 WBC (3.8-10.6) k/uL RBC (4.30-5.90) m/uL Hgb (13.0-17.5) gm/dL Hct (39.0-53.0) % Plt Count (150-450) k/uL Neutrophils # (1.3-7.7) k/uL POC Glucose (mg/dL) 172 H (75-99) mg/dL Total Protein (6.3-8.2) g/dL - Imaging and Cardiology Chest x-ray: report reviewed, image reviewed Assessment and Plan Assessment: 1. Critical left main stenosis, status post urgent CABG 2. Non-STEMI 3. Hyperlipidemia 4. Current tobacco dependence 5. Mild COPD with preoperative FEV1 65% of predicted 6. Significant family history of premature coronary artery disease 7. EtOH abuse Plan: 1. Continue aspirin, statin, Plavix, beta kimberly therapy. Will increase beta kimberly therapy as tolerated. Increase to 25 mg twice daily today. 2. Continue norvasc for arterial spasm. Increase to 5 mg daily today. 3. Wean O2 as tolerated. Encourage incentive spirometry 10 times every hour while awake. 4. Increase activity ambulate as tolerated. PT/OT/cardiac rehab following. 5. Will monitor daily labs, x-rays. Electrolyte replacement therapy per protocol. No transfusion 6. Pain control with current medication regimen. 7. Insulin management per primary care service. 8. Will discontinue chest tubes, CHRISTINA drains, Cordis, arterial line. 9. We'll give Lasix IV today. Discontinue Whyte after diuresis, may straight cathed for greater than 300 mL residual. 10. [facility] protocol, assess for alcohol withdrawal. 11. Patient will likely need rehab at discharge as he lives alone. Social work consulted. 12. Will place transfer orders for 3 S. cardiac stepdown unit. May transfer when bed available. 13. More recommendations to follow Time with Patient: Greater than 30
[2019-01-23 10:29] LABS: Glucose,Whole Blood 107 mg/dL (75-99)
[2019-01-23] MEDS: THIAMINE 100 MG TAB PO SCH ×2 (10:29→17:07)
[2019-01-23] MEDS: ATORVASTATIN 40 MG TAB PO SCH (10:29)
[2019-01-23] MEDS: ASPIRIN 325 MG TAB PO SCH (10:29)
[2019-01-23] MEDS: PANTOPRAZOLE 40 MG TABLET PO SCH (10:29)
[2019-01-23] MEDS: METOPROLOL TARTRATE 25 MG TAB PO SCH ×2 (10:31→20:52)
[2019-01-23] MEDS: CLOPIDOGREL 75 MG TAB PO SCH (10:31)
[2019-01-23] MEDS: MULTIVITAMINS, THERA 1 EACH TAB PO SCH (10:31)
[2019-01-23] MEDS: HEPARIN SODIUM,PORCINE 5,000 UNIT/ML 1 ML VIAL SQ SCH ×2 (10:32→17:06)
[2019-01-23] MEDS: MUPIROCIN 2% OINT 22 GM TUBE NASAL SCH ×2 (11:15→22:04)
[2019-01-23 12:05] LABS: Glucose,Whole Blood 106 mg/dL (75-99)
--- NOTE | 2019-01-23 12:47 | P.PN ---
Subjective Progress Note Date: 01/23/19 Principal diagnosis: Status post CABG 3 with VELASQUEZ to LAD, radial to obtuse marginal and SVG to RCA. Postoperative day #2 This is a 43-year-old white male, [id number] smoker, strong family history of premature coronary artery disease, no history of hypertension, no history of diabetes, patient presented to the ER yesterday with severe substernal chest discomfort. Patient felt a sudden onset of squeezing chest pain and discomfort associated with numbness in the right arm. It was also associated with diaphoresis and sweating. Upon presentation, his first set of troponin came back slightly elevated, EKG showed nonspecific changes in the inferior lateral leads but subsequent EKG showed T-wave inversion in the inferior lateral leads quite concerning for ischemia. Patient underwent cardiac catheterization, and it showed a critical disease involving the left main coronary artery in its proximal portion in the range of 99.9%. Patient was referred to cardiac surgery , and he will be scheduled for myocardial revascularization in the next 24 hours. Considering his smoking history, I was asked to see him on consultation for pulmonary clearance. Patient had no history to suggest underlying COPD, however he had a 37-[id number]-llel smoking history. And smoked until recently. Patient denies any cough no wheezing, no shortness of breath. Preoperative spirometry is pending. In the meantime the patient was given incentive spirometer, and instructed on its use. Chest x-ray on admission showed no active cardiopulmonary disease On 01/20/2019 patient seen again in follow-up on the selective care unit, he is resting comfortably in bed, in no acute distress, denies any chest pain, denies any gouty breathing, his lung sounds are clear, he is on room air, saturation is 96%, patient is on heparin drip, no acute events overnight. Patient is using his incentive spirometer, he is able to achieve 2500 on the today. Today's labs have been reviewed and are unremarkable. Patient is scheduled for surgery tomorrow for 2 possibly 3 aortocoronary bypasses On 01/22/2019, patient is status post CABG, postoperative day #1. Patient underwent VELASQUEZ to LAD, radial to obtuse marginal and SVG to RCA. Patient is doing great today, he was extubated a few hours after he was admitted to the ICU overnight. Presently no cough no wheezing no shortness of breath, feels generally sore. Patient is doing well with incentive spirometry, and his chest x-ray showed mild cardiomegaly, minimal pulmonary vascular congestion, and basilar atelectasis bilaterally. Labs were reviewed relatively normal CBC. Hemoglobin is 11.3. Electrolytes are normal except for slightly elevated po tassium of 5.5, rest of the labs were unremarkable. On 01/23/2019, patient was reevaluated again in the ICU, doing well, has mostly some chest pain at the surgical site. Denies any cough no wheezing, no shortness of breath, achieve's 800 mL via incentive spirometer. Chest x-ray showed patchy atelectasis and small pleural effusions. Labs were reviewed basically unremarkable. Objective - Vital Signs Vital signs: Vital Signs Temp 98.5 F 01/23/19 04:00 Pulse 83 01/23/19 11:29 Resp 26 H 01/23/19 06:00 BP 145/94 01/23/19 06:00 Pulse Ox 98 01/23/19 07:32 Intake & Output 01/22/19 01/23/19 01/23/19 18:59 06:59 18:59 Intake Total 799.976 629.545 0 Output Total 1370 1330 Balance -570.024 -700.455 0 Weight 86.5 kg 84.9 kg Intake: IV 438.5 220 Diltiazem 125 mg In 2.5 Sodium Chloride 0.9% 100 ml @ 5 MG/HR 5 mls/hr IV .Q24H [facility] Rx#:[id number] Lactated Ringers 1,000 ml 400 220 @ 20 mls/hr IV .Q24H [facility] Rx#:[id number] Nitroglycerin-D5w Pmx 50 0 mg In Dextrose/Water 1 250ml.bag @ 5 MCG/MIN 1.5 mls/hr IV .Q24H [facility] Rx#: [id number] Pressure bag 36 Intake, IV Titration 161.476 9.545 0 Amount Diltiazem 125 mg In 72.083 Sodium Chloride 0.9% 100 ml @ 5 MG/HR 5 mls/hr IV .Q24H [facility] Rx#:[id number] Insulin Regular 100 unit 16.581 9.545 0 In Sodium Chloride 0.9% 100 ml @ Per Protocol IV .Q0M [facility] Rx#:[id number] Milrinone-D5w Pmx 20 mg 72.812 In Dextrose/Water 1 100ml .bag @ 0.2 MCG/KG/MIN 4. 956 mls/hr IV .[id number] [facility] Rx#:[id number] Oral 200 400 Output: Chest Tube Drainage 340 200 Chest Tube Bilateral 195 130 Mediastinal Chest Tube Left Lateral 145 70 Chest Drainage 60 15 Left Wrist 60 15 Urine 970 1115 Other: Voiding Method Indwelling Catheter Indwelling Catheter ABP, PAP, CO, CI - Last Documented Arterial Blood Pressure 147/74 Pulmonary Artery Pressure 30/15 Cardiac Output 6.5 Cardiac Index 3.2 - Exam GENERAL EXAM: Revealed 43-year-old white male sitting in a bedside chair, on nasal cannula, in no distress, very pleasant. HEAD: Normocephalic/atraumatic. EYES: Normal reaction of pupils, equal size. Conjunctiva pink, sclera white. NOSE: Clear with pink turbinates. THROAT: No erythema or exudates. NECK: No masses, no JVD, no thyroid enlargement, no adenopathy. CHEST: No chest wall deformity. Symmetrical expansion. Sternum seems to be stable. Surgical dressing is clean. LUNGS: Slightly diminished breath sounds bilaterally, no rhonchi and no wheezes. CVS: Regular rate and rhythm, normal S1 and S2, no gallops, no murmurs, no rubs ABDOMEN: Soft, nontender. No hepatosplenomegaly, normal bowel sounds, no guarding or rigidity. EXTREMITIES: No clubbing, no edema, no cyanosis, 2+ pulses and upper and lower extremities. MUSCULOSKELETAL: Muscle strength and tone normal. CENTRAL NERVOUS SYSTEM: Alert and oriented -3. No focal deficits, tone is normal in all 4 extremities. PSYCHIATRIC: Normal mood, affect and mental status examination. - Labs CBC & Chem 7: 01/23/19 05:49 01/23/19 05:49 Labs: Abnormal Lab Results - Last 24 Hours (Table) 01/22/19 01/22/19 01/22/19 Range/Units 14:09 15:08 16:09 WBC (3.8-10.6) k/uL RBC (4.30-5.90) m/uL Hgb (13.0-17.5) gm/dL Hct (39.0-53.0) % Plt Count (150-450) k/uL Neutrophils # (1.3-7.7) k/uL POC Glucose (mg/dL) 101 H 116 H 116 H (75-99) mg/dL Total Protein (6.3-8.2) g/dL 01/22/19 01/22/19 01/23/19 Range/Units 17:48 19:57 00:02 WBC (3.8-10.6) k/uL RBC (4.30-5.90) m/uL Hgb (13.0-17.5) gm/dL Hct (39.0-53.0) % Plt Count (150-450) k/uL Neutrophils # (1.3-7.7) k/uL POC Glucose (mg/dL) 109 H 125 H 169 H (75-99) mg/dL Total Protein (6.3-8.2) g/dL 01/23/19 01/23/19 01/23/19 Range/Units 00:54 01:57 03:04 WBC (3.8-10.6) k/uL RBC (4.30-5.90) m/uL Hgb (13.0-17.5) gm/dL Hct (39.0-53.0) % Plt Count (150-450) k/uL Neutrophils # (1.3-7.7) k/uL POC Glucose (mg/dL) 107 H 109 H 107 H (75-99) mg/dL Total Protein (6.3-8.2) g/dL 01/23/19 01/23/19 01/23/19 Range/Units 04:02 05:13 05:49 WBC 12.0 H (3.8-10.6) k/uL RBC 3.20 L (4.30-5.90) m/uL Hgb 10.0 L (13.0-17.5) gm/dL Hct 29.3 L (39.0-53.0) % Plt Count 124 L (150-450) k/uL Neutrophils # 8.9 H (1.3-7.7) k/uL POC Glucose (mg/dL) 120 H 107 H (75-99) mg/dL Total Protein (6.3-8.2) g/dL 01/23/19 01/23/19 01/23/19 Range/Units 05:49 06:17 07:13 WBC (3.8-10.6) k/uL RBC (4.30-5.90) m/uL Hgb (13.0-17.5) gm/dL Hct (39.0-53.0) % Plt Count (150-450) k/uL Neutrophils # (1.3-7.7) k/uL POC Glucose (mg/dL) 112 H 130 H (75-99) mg/dL Total Protein 5.4 L (6.3-8.2) g/dL 01/23/19 01/23/19 01/23/19 Range/Units 08:38 10:22 11:48 WBC (3.8-10.6) k/uL RBC (4.30-5.90) m/uL Hgb (13.0-17.5) gm/dL Hct (39.0-53.0) % Plt Count (150-450) k/uL Neutrophils # (1.3-7.7) k/uL POC Glucose (mg/dL) 172 H 107 H 106 H (75-99) mg/dL Total Protein (6.3-8.2) g/dL Assessment and Plan Assessment: Impression: Status post CABG, postoperative day #2 Acute non-ST elevation myocardial infarction Severe left main coronary artery disease History of smoking, tobacco dependence syndrome Significant family history for coronary artery disease. Recommendation: 1: Continue incentive spirometry. Achieving 800 ml 2: Early ambulation and bronchodilators 3: Continue statin, Plavix, beta blockers, continue to wean from Primacor, 4 encourage deep coughing and deep breathing 5 continue pain control 6 we'll continue to follow. Time with Patient: Less than 30
[2019-01-23] MEDS: amLODIPine 5 MG TAB PO SCH (13:17)
--- NOTE | 2019-01-23 13:26 | P.CONS ---
History of Present Illness - Chief Complaint Cardiac debility - History of Present Illness I had the opportunity to see patient for inpatient consultation with regard to cardiac debility. He was admitted to [facility] January 18 with chest pain and non- STEMI. Seen by hospitalist as well as Dr. Desai. Patient did have workup and eventually underwent three-vessel CABG on January 22. Chest x-rays followed for patchy basilar infiltrate. PT reports minimal assistance for minimal and functional mobility. Ambulates 300 feet with supervision. OT reports supervision for upper dressing and minimal assistance for lower dressing, bathing, toileting and functional mobility. Previous functional history as elicited from patient: 43-year-old right-handed white male who is lives and 2 floor home with friend. Works full-time. Describes independent with own cooking, laundry, driving, standing shower and gait without device. Does not own a car. History of smoking or just recently quit. Rare drink. Does not have PMD. Family history father with cardiac disease. Review of Systems Review of systems: ENT: Denies sneezes or discharge. Eyes: Denies discharge or photophobia. Cardiac: Mild sternal discomfort. Pulmonary: At least mild shortness of breath. Gastrointestinal: Denies nausea, emesis, constipation, diarrhea. Genitourinary: Denies discharge or frequency. Musculoskeletal: Denies muscle or bone aches. Neurologic: Mild to moderate generalized weakness. Endocrine: Denies shakes or sweats. Oncology: Denies cancers. Dermatologic: Denies rash, itching, pruritus. ALLERGY/immunology: Denies sneezes, rashes. Past Medical History Past Medical History: No Reported History History of Any Multi-Drug Resistant Organisms: None Reported Past Surgical History: Tonsillectomy Additional Past Surgical History / Comment(s): ear surgerys 7-[address], broken fingers, history of elevated liver enzymes while in , scarlet fever 3 times while younger Past Anesthesia/Blood Transfusion Reactions: No Reported Reaction Past Psychological History: No Psychological Hx Reported Smoking Status: Current every day smoker Past Alcohol Use History: Rare Past Drug Use History: None Reported - Past Family History Mother Additional Family Medical History / Comment(s): hypoglycemic Father Family Medical History: Chest Pain / Angina, Diabetes Mellitus, Myocardial Infarction ([place]) Additional Family Medical History / Comment(s): in his early 40s from heart disease, also grandfather and several uncles with premature heart disease Medications and Allergies Home Medications Medication Instructions Recorded Confirmed Type Ibuprofen [Motrin Ib] 1,000 mg PO Q8H 01/18/19 01/18/19 History Allergies Allergy/AdvReac Type Severity Reaction Status Date / Time No Known Allergies Allergy Verified 01/18/19 19:20 Physical Exam Vitals: Vital Signs Temp Pulse Resp BP Pulse Ox 01/23/19 11:29 83 01/23/19 11:16 85 01/23/19 11:00 86 17 118/77 94 L 01/23/19 10:00 89 15 96/72 95 01/23/19 09:00 110 H 11 L 98/68 95 01/23/19 08:00 98.4 F 96 18 109/77 98 01/23/19 07:43 95 01/23/19 07:32 86 98 01/23/19 07:00 82 16 120/70 99 01/23/19 06:00 89 26 H 145/94 96 01/23/19 05:00 100 22 138/92 97 01/23/19 04:00 98.5 F 86 21 128/79 99 01/23/19 03:00 88 17 132/89 98 01/23/19 02:00 82 13 112/70 99 01/23/19 01:00 89 14 121/77 98 01/23/19 00:12 88 16 126/83 98 01/23/19 00:00 97.7 F 100 23 122/78 98 01/22/19 23:00 81 18 122/78 98 01/22/19 22:00 82 16 129/84 99 01/22/19 21:00 87 15 127/82 97 01/22/19 20:00 98.2 F 90 18 137/86 98 01/22/19 19:31 106 H 01/22/19 19:19 104 H 01/22/19 19:00 92 15 124/82 97 01/22/19 18:00 88 16 126/75 97 01/22/19 17:00 95 18 126/78 98 01/22/19 16:00 98.3 F 89 18 132/88 98 01/22/19 15:28 84 01/22/19 15:13 83 01/22/19 15:00 76 15 123/84 100 01/22/19 14:00 80 18 106/78 95 Intake and Output 01/22/19 01/23/19 01/23/19 22:59 06:59 14:59 Intake Total 444.040 365.505 300 Output Total 1170 705 500 Balance -725.960 -339.495 -200 Intake: IV 140 160 60 Lactated Ringers 1,000 ml 140 160 60 @ 20 mls/hr IV .Q24H [facility] Rx#:[id number] Intake, IV Titration 4.040 5.505 0 Amount Insulin Regular 100 unit 4.040 5.505 0 In Sodium Chloride 0.9% 100 ml @ Per Protocol IV .Q0M [facility] Rx#:[id number] Oral 300 200 240 Output: Chest Tube Drainage 205 140 Chest Tube Bilateral 100 90 Mediastinal Chest Tube Left Lateral 105 50 Chest Drainage 40 15 Left Wrist 40 15 Urine 925 550 500 Other: Voiding Method Indwelling Catheter Indwelling Catheter Weight 84.9 kg ABP, PAP, CO, CI - Last 8 Hours Cardiac Output 6.5 Skin: Good color, texture, turgor. General: Medium build and comfortable appearance. Head: Normocephalic, atraumatic. Eyes: Symmetric. Pupils equal round. Ears: Symmetric. Hearing within normal limits. Mouth: Clear. Neck: Supple. Carotid without bruit. Cardiac: Regular rate and rhythm. Midline sternotomy scar clean and dressed. Harness. Lungs: Clear anteriorly and posteriorly. Abdomen: Soft active nontender. Extremities: Normal tone. Neurological: Mental status: Alert, cooperative, pleasant. Cranial nerves: Symmetric facial tone and trapezius. Motor: Active movement all 4 limbs. Sensation: Intact throughout. DTRs: Symmetric and equal throughout. Mobility: Stands with physical assistance. Results CBC & Chem 7: 01/23/19 05:49 01/23/19 05:49 Labs: Abnormal Lab Results - Last 24 Hours (Table) 01/22/19 01/22/19 01/22/19 Range/Units 14:09 15:08 16:09 WBC (3.8-10.6) k/uL RBC (4.30-5.90) m/uL Hgb (13.0-17.5) gm/dL Hct (39.0-53.0) % Plt Count (150-450) k/uL Neutrophils # (1.3-7.7) k/uL POC Glucose (mg/dL) 101 H 116 H 116 H (75-99) mg/dL Total Protein (6.3-8.2) g/dL 01/22/19 01/22/19 01/23/19 Range/Units 17:48 19:57 00:02 WBC (3.8-10.6) k/uL RBC (4.30-5.90) m/uL Hgb (13.0-17.5) gm/dL Hct (39.0-53.0) % Plt Count (150-450) k/uL Neutrophils # (1.3-7.7) k/uL POC Glucose (mg/dL) 109 H 125 H 169 H (75-99) mg/dL Total Protein (6.3-8.2) g/dL 01/23/19 01/23/19 01/23/19 Range/Units 00:54 01:57 03:04 WBC (3.8-10.6) k/uL RBC (4.30-5.90) m/uL Hgb (13.0-17.5) gm/dL Hct (39.0-53.0) % Plt Count (150-450) k/uL Neutrophils # (1.3-7.7) k/uL POC Glucose (mg/dL) 107 H 109 H 107 H (75-99) mg/dL Total Protein (6.3-8.2) g/dL 01/23/19 01/23/19 01/23/19 Range/Units 04:02 05:13 05:49 WBC 12.0 H (3.8-10.6) k/uL RBC 3.20 L (4.30-5.90) m/uL Hgb 10.0 L (13.0-17.5) gm/dL Hct 29.3 L (39.0-53.0) % Plt Count 124 L (150-450) k/uL Neutrophils # 8.9 H (1.3-7.7) k/uL POC Glucose (mg/dL) 120 H 107 H (75-99) mg/dL Total Protein (6.3-8.2) g/dL 01/23/19 01/23/19 01/23/19 Range/Units 05:49 06:17 07:13 WBC (3.8-10.6) k/uL RBC (4.30-5.90) m/uL Hgb (13.0-17.5) gm/dL Hct (39.0-53.0) % Plt Count (150-450) k/uL Neutrophils # (1.3-7.7) k/uL POC Glucose (mg/dL) 112 H 130 H (75-99) mg/dL Total Protein 5.4 L (6.3-8.2) g/dL 01/23/19 01/23/19 01/23/19 Range/Units 08:38 10:22 11:48 WBC (3.8-10.6) k/uL RBC (4.30-5.90) m/uL Hgb (13.0-17.5) gm/dL Hct (39.0-53.0) % Plt Count (150-450) k/uL Neutrophils # (1.3-7.7) k/uL POC Glucose (mg/dL) 172 H 107 H 106 H (75-99) mg/dL Total Protein (6.3-8.2) g/dL Assessment and Plan (1) NSTEMI (non-ST elevated myocardial infarction) Current Visit: Yes Status: Acute Code(s): I21.4 - NON-ST ELEVATION (NSTEMI) MYOCARDIAL INFARCTION SNOMED Code(s): 76793755 Plan: Impression: 1. Cardiac debility. 2. Non-STEMI, coronary artery syndrome with a recent three-vessel CABG. 3. Essential hypertension. Constant plan: At this time PT and OT are ongoing. Safety concerns noted currently. Discussed possible inpatient rehab with patient and he seems agreeable if necessary.
--- NOTE | 2019-01-23 15:08 | P.PN ---
Subjective Progress Note Date: 01/23/19 Principal diagnosis: Non-ST elevation TN, hypertension 43-year-old male smoker who presented to the emergency room for elevated troponin, chest pain was noted to have dynamic EKG changes and diagnosed with non-ST elevation TN. Patient had urgent cardiac catheterization which showed left main lesion in the ostium 95% he underwent CABG on 01/21/2019. Patient is currently postoperative day 2 and denies any dyspnea or chest pain Objective - Vital Signs Vital signs: Vital Signs Temp 98.4 F 01/23/19 08:00 Pulse 83 01/23/19 11:29 Resp 17 01/23/19 11:00 BP 118/77 01/23/19 11:00 Pulse Ox 94 L 01/23/19 11:00 Intake & Output 01/22/19 01/23/19 01/23/19 18:59 06:59 18:59 Intake Total 799.976 629.545 300 Output Total 1370 1330 500 Balance -570.024 -700.455 -200 Weight 86.5 kg 84.9 kg Intake: IV 438.5 220 60 Diltiazem 125 mg In 2.5 Sodium Chloride 0.9% 100 ml @ 5 MG/HR 5 mls/hr IV .Q24H [facility] Rx#:[id number] Lactated Ringers 1,000 ml 400 220 60 @ 20 mls/hr IV .Q24H [facility] Rx#:[id number] Nitroglycerin-D5w Pmx 50 0 mg In Dextrose/Water 1 250ml.bag @ 5 MCG/MIN 1.5 mls/hr IV .Q24H [facility] Rx#: [id number] Pressure bag 36 Intake, IV Titration 161.476 9.545 0 Amount Diltiazem 125 mg In 72.083 Sodium Chloride 0.9% 100 ml @ 5 MG/HR 5 mls/hr IV .Q24H [facility]IN Rx#:[id number] Insulin Regular 100 unit 16.581 9.545 0 In Sodium Chloride 0.9% 100 ml @ Per Protocol IV .Q0M [facility] Rx#:[id number] Milrinone-D5w Pmx 20 mg 72.812 In Dextrose/Water 1 100ml .bag @ 0.2 MCG/KG/MIN 4. 956 mls/hr IV .[id number] [facility] Rx#:[id number] Oral 200 400 240 Output: Chest Tube Drainage 340 200 Chest Tube Bilateral 195 130 Mediastinal Chest Tube Left Lateral 145 70 Chest Drainage 60 15 Left Wrist 60 15 Urine 970 1115 500 Other: Voiding Method Indwelling Catheter Indwelling Catheter ABP, PAP, CO, CI - Last Documented Arterial Blood Pressure 147/74 Pulmonary Artery Pressure 30/15 Cardiac Output 6.5 Cardiac Index 3.2 - Constitutional General appearance: Present: no acute distress - Respiratory Respiratory: bilateral: CTA - Cardiovascular Rhythm: regular - Gastrointestinal General gastrointestinal: Present: normal bowel sounds, soft - Integumentary Integumentary: Present: normal turgor - Psychiatric Psychiatric: Present: A&O x's 3, appropriate affect - Labs CBC & Chem 7: 01/23/19 05:49 01/23/19 05:49 Labs: Abnormal Lab Results - Last 24 Hours (Table) 01/22/19 01/22/19 01/22/19 Range/Units 15:08 16:09 17:48 WBC (3.8-10.6) k/uL RBC (4.30-5.90) m/uL Hgb (13.0-17.5) gm/dL Hct (39.0-53.0) % Plt Count (150-450) k/uL Neutrophils # (1.3-7.7) k/uL POC Glucose (mg/dL) 116 H 116 H 109 H (75-99) mg/dL Total Protein (6.3-8.2) g/dL 01/22/19 01/23/19 01/23/19 Range/Units 19:57 00:02 00:54 WBC (3.8-10.6) k/uL RBC (4.30-5.90) m/uL Hgb (13.0-17.5) gm/dL Hct (39.0-53.0) % Plt Count (150-450) k/uL Neutrophils # (1.3-7.7) k/uL POC Glucose (mg/dL) 125 H 169 H 107 H (75-99) mg/dL Total Protein (6.3-8.2) g/dL 01/23/19 01/23/19 01/23/19 Range/Units 01:57 03:04 04:02 WBC (3.8-10.6) k/uL RBC (4.30-5.90) m/uL Hgb (13.0-17.5) gm/dL Hct (39.0-53.0) % Plt Count (150-450) k/uL Neutrophils # (1.3-7.7) k/uL POC Glucose (mg/dL) 109 H 107 H 120 H (75-99) mg/dL Total Protein (6.3-8.2) g/dL 01/23/19 01/23/19 01/23/19 Range/Units 05:13 05:49 05:49 WBC 12.0 H (3.8-10.6) k/uL RBC 3.20 L (4.30-5.90) m/uL Hgb 10.0 L (13.0-17.5) gm/dL Hct 29.3 L (39.0-53.0) % Plt Count 124 L (150-450) k/uL Neutrophils # 8.9 H (1.3-7.7) k/uL POC Glucose (mg/dL) 107 H (75-99) mg/dL Total Protein 5.4 L (6.3-8.2) g/dL 01/23/19 01/23/19 01/23/19 Range/Units 06:17 07:13 08:38 WBC (3.8-10.6) k/uL RBC (4.30-5.90) m/uL Hgb (13.0-17.5) gm/dL Hct (39.0-53.0) % Plt Count (150-450) k/uL Neutrophils # (1.3-7.7) k/uL POC Glucose (mg/dL) 112 H 130 H 172 H (75-99) mg/dL Total Protein (6.3-8.2) g/dL 01/23/19 01/23/19 Range/Units 10:22 11:48 WBC (3.8-10.6) k/uL RBC (4.30-5.90) m/uL Hgb (13.0-17.5) gm/dL Hct (39.0-53.0) % Plt Count (150-450) k/uL Neutrophils # (1.3-7.7) k/uL POC Glucose (mg/dL) 107 H 106 H (75-99) mg/dL Total Protein (6.3-8.2) g/dL Assessment and Plan Assessment: Non-ST elevation TN Cardiac debility Hypertension Smoker Plan: Optimize blood pressure control, patient working with physical therapy, counseled about smoking cessation advised to continue incentive spirometry discussed plan of care with nurse practitioner from cardiovascular surgery, possible inpatient rehab for cardiac debility
[2019-01-23 20:17] LABS: Glucose,Whole Blood 116 mg/dL (75-99)
[2019-01-23] MEDS: INSULIN ASPART (NovoLOG) 100 UNIT/ML VIAL SQ SCH (20:41)
[2019-01-23] MEDS: SENNOSIDES-DOCUSATE SODIUM 1 EACH TAB PO SCH (20:52)
[2019-01-24] MEDS: KETOROLAC 30 MG/ML 1 ML VIAL IVP SCH ×5 (00:18→23:32)
[2019-01-24] MEDS: HEPARIN SODIUM,PORCINE 5,000 UNIT/ML 1 ML VIAL SQ SCH ×4 (00:19→23:32)
[2019-01-24 02:53] LABS: Glucose,Whole Blood 108 mg/dL (75-99)
[2019-01-24 04:43] LABS: HCT 28.4 % (39.0-53.0); HGB 9.6 gm/dL (13.0-17.5); MCHC 33.9 g/dL (31.0-37.0); MCV 91.6 fL (80.0-100.0); Mean Platelet Volume 7.7; Platelet Count 149 k/uL (150-450); RDW 13.7 % (11.5-15.5)
[2019-01-24 04:53] LABS: Anion Gap 4 mmol/L; Blood Urea Nitrogen 16 mg/dL (9-20); Calcium 8.6 mg/dL (8.4-10.2); Carbon Dioxide 32 mmol/L (22-30); Chloride 102 mmol/L (98-107); Glucose 95 mg/dL (74-99); Potassium 4.2 mmol/L (3.5-5.1); Sodium 138 mmol/L (137-145)
--- NOTE | 2019-01-24 06:56 | XR ---
EXAMINATION TYPE: XR chest 2V DATE OF EXAM: 01/24/2019 HISTORY: Post cardiac surgery. REFERENCE: Previous study dated 01/23/2019. FINDINGS: The patient's left pleural drain has been removed. No definite pneumothorax is seen. There has been a midline sternotomy. The heart is enlarged. There is right basilar airspace disease. There is a small amount of left-sided atelectasis. There is a small left effusion. IMPRESSION: 1. BIBASILAR AIRSPACE DISEASE. 2. SMALL LEFT EFFUSION.
[2019-01-24 07:09] LABS: Glucose,Whole Blood 114 mg/dL (75-99)
[2019-01-24] MEDS: INSULIN ASPART (NovoLOG) 100 UNIT/ML VIAL SQ SCH ×4 (07:28→21:42)
--- NOTE | 2019-01-24 07:35 | P.PN ---
Subjective Progress Note Date: 01/24/19 Principal diagnosis: Acute non-ST deviation IN This is a pleasant 43-year-old gentleman with history of smoking and significant family history of coronary artery disease presented to the emergency room with a chest discomfort and he was found to have mildly abnormal cardiac enzymes as well as ST changes in the inferolateral leads highly suggestive of severe underlying coronary artery disease. Because of that the patient underwent a heart catheterization last night showed critical disease involving the left main coronary artery. He underwent coronary artery bypass grafting 3 with VELASQUEZ to LAD, radial to OM, and vein graft to RCA. On follow-up with the patient today, January 242018, the patient is doing good clinically. Hemodynamically he continues to be stable. He is on maximize medical treatment consistent of dual antiplatelet therapy, calcium channel kimberly for the radial graft, and he is on statin as well. He can be transferred out of the ICU. Possible discharge in the next 24-48 hours. Objective - Vital Signs Vital signs: Vital Signs Temp 98.6 F 01/24/19 04:00 Pulse 85 01/24/19 04:00 Resp 18 01/24/19 04:00 BP 134/78 01/24/19 04:00 Pulse Ox 94 L 01/24/19 04:00 Intake & Output 01/23/19 01/24/19 01/24/19 18:59 06:59 18:59 Intake Total 940 Output Total 850 700 Balance 90 -700 Weight 88 kg Intake: IV 200 Lactated Ringers 1,000 ml 200 @ 20 mls/hr IV .Q24H [facility] Rx#:[id number] Intake, IV Titration 0 Amount Insulin Regular 100 unit 0 In Sodium Chloride 0.9% 100 ml @ Per Protocol IV .Q0M [facility] Rx#:[id number] Oral 740 Output: Urine 850 700 Other: Voiding Method Urinal ABP, PAP, CO, CI - Last Documented Arterial Blood Pressure 147/74 Pulmonary Artery Pressure 30/15 Cardiac Output 6.5 Cardiac Index 3.2 - Constitutional General appearance: Present: no acute distress - Respiratory Respiratory: bilateral: diminished - Cardiovascular Rhythm: regular Heart sounds: normal: S1, S2 - Labs CBC & Chem 7: 01/24/19 04:25 01/24/19 04:25 Labs: Abnormal Lab Results - Last 24 Hours (Table) 01/23/19 01/23/19 01/23/19 Range/Units 08:38 10:22 11:48 RBC (4.30-5.90) m/uL Hgb (13.0-17.5) gm/dL Hct (39.0-53.0) % Plt Count (150-450) k/uL Carbon Dioxide (22-30) mmol/L POC Glucose (mg/dL) 172 H 107 H 106 H (75-99) mg/dL 01/23/19 01/24/19 01/24/19 Range/Units 20:13 02:33 04:25 RBC 3.10 L (4.30-5.90) m/uL Hgb 9.6 L (13.0-17.5) gm/dL Hct 28.4 L (39.0-53.0) % Plt Count 149 L (150-450) k/uL Carbon Dioxide (22-30) mmol/L POC Glucose (mg/dL) 116 H 108 H (75-99) mg/dL 01/24/19 01/24/19 Range/Units 04:25 07:08 RBC (4.30-5.90) m/uL Hgb (13.0-17.5) gm/dL Hct (39.0-53.0) % Plt Count (150-450) k/uL Carbon Dioxide 32 H (22-30) mmol/L POC Glucose (mg/dL) 114 H (75-99) mg/dL Assessment and Plan Assessment: Assessment #1 acute non-ST deviation myocardial infarction #2 severe left main coronary artery disease and status post CABG #3 history of smoking #4 significant family history of coronary artery disease Plan #1 continue the current medical regimen #2 continue Norvasc #3 possible discharge in the next 24-48 hours
[2019-01-24] MEDS: IPRATROPIUM-ALBUTEROL 3 ML NEB INHALATION SCH ×4 (07:52→20:07)
[2019-01-24] MEDS: ATORVASTATIN 40 MG TAB PO SCH (08:32)
[2019-01-24] MEDS: THIAMINE 100 MG TAB PO SCH ×2 (08:32→17:07)
[2019-01-24] MEDS: METOPROLOL TARTRATE 50 MG TAB PO SCH ×2 (08:32→21:42)
[2019-01-24] MEDS: HYDROcodone/APAP 5-325MG 1 EACH TAB PO PRN ×2 (08:33→18:04)
[2019-01-24] MEDS: PANTOPRAZOLE 40 MG TABLET PO SCH (08:33)
[2019-01-24] MEDS: CLOPIDOGREL 75 MG TAB PO SCH (08:33)
[2019-01-24] MEDS: ASPIRIN 325 MG TAB PO SCH (08:33)
[2019-01-24] MEDS: MULTIVITAMINS, THERA 1 EACH TAB PO SCH (08:33)
[2019-01-24] MEDS: MUPIROCIN 2% OINT 22 GM TUBE NASAL SCH ×2 (08:35→21:42)
--- NOTE | 2019-01-24 10:52 | P.PN ---
Subjective Progress Note Date: 01/24/19 Principal diagnosis: Status post CABG 3 with VELASQUEZ to LAD, radial to obtuse marginal and SVG to RCA. Postoperative day # 3 This is a 43-year-old white male, [id number] smoker, strong family history of premature coronary artery disease, no history of hypertension, no history of diabetes, patient presented to the ER yesterday with severe substernal chest discomfort. Patient felt a sudden onset of squeezing chest pain and discomfort associated with numbness in the right arm. It was also associated with diaphoresis and sweating. Upon presentation, his first set of troponin came back slightly elevated, EKG showed nonspecific changes in the inferior lateral leads but subsequent EKG showed T-wave inversion in the inferior lateral leads quite concerning for ischemia. Patient underwent cardiac catheterization, and it showed a critical disease involving the left main coronary artery in its proximal portion in the range of 99.9%. Patient was referred to cardiac surger y, and he will be scheduled for myocardial revascularization in the next 24 hours. Considering his smoking history, I was asked to see him on consultation for pulmonary clearance. Patient had no history to suggest underlying COPD, however he had a [id number] smoking history. And smoked until recently. Patient denies any cough no wheezing, no shortness of breath. Preoperative spirometry is pending. In the meantime the patient was given incentive spirometer, and instructed on its use. Chest x-ray on admission showed no active cardiopulmonary disease On 01/20/2019 patient seen again in follow-up on the selective care unit, he is resting comfortably in bed, in no acute distress, denies any chest pain, denies any gouty breathing, his lung sounds are clear, he is on room air, saturation is 96%, patient is on heparin drip, no acute events overnight. Patient is using his incentive spirometer, he is able to achieve 2500 on the today. Today's labs have been reviewed and are unremarkable. Patient is scheduled for surgery tomorrow for 2 possibly 3 aortocoronary bypasses On 01/22/2019, patient is status post CABG, postoperative day #1. Patient underwent VELASQUEZ to LAD, radial to obtuse marginal and SVG to RCA. Patient is doing great today, he was extubated a few hours after he was admitted to the ICU overnight. Presently no cough no wheezing no shortness of breath, feels general ly sore. Patient is doing well with incentive spirometry, and his chest x-ray showed mild cardiomegaly, minimal pulmonary vascular congestion, and basilar atelectasis bilaterally. Labs were reviewed relatively normal CBC. Hemoglobin is 11.3. Electrolytes are normal except for slightly elevated potassium of 5.5, rest of the labs were unremarkable. On 01/23/2019, patient was reevaluated again in the ICU, doing well, has mostly some chest pain at the surgical site. Denies any cough no wheezing, no shortness of breath, achieve's 800 mL via incentive spirometer. Chest x-ray showed patchy atelectasis and small pleural effusions. Labs were reviewed basically unremarkable. On 01/24/2019, patient remains in the ICU, doing well, relatively asymptomatic, no cough no wheezing no shortness of breath, able to clear secretions quite well, doing much with incentive spirometry, remains on maximal medical therapy with antiplatelet therapy, calcium channel blockers and statins. Chest x-ray is showing bibasilar atelectasis, possibility of early infiltrate in the right lower lobe is not entirely ruled out but felt to be less likely based on the clinical picture. Hence we'll not start antibiotics at this point yet. Objective - Vital Signs Vital signs: Vital Signs Temp 99.0 F 01/24/19 08:00 Pulse 98 01/24/19 08:05 Resp 14 01/24/19 08:00 BP 134/78 01/24/19 08:00 Pulse Ox 94 L 01/24/19 04:00 Intake & Output 01/23/19 01/24/19 01/24/19 18:59 06:59 18:59 Intake Total 940 150 Output Total 850 700 Balance 90 -700 150 Weight 88 kg Intake: IV 200 Lactated Ringers 1,000 ml 200 @ 20 mls/hr IV .Q24H [facility] Rx#:[id number] Intake, IV Titration 0 Amount Insulin Regular 100 unit 0 In Sodium Chloride 0.9% 100 ml @ Per Protocol IV .Q0M [facility] Rx#:[id number] Oral 740 150 Output: Urine 850 700 Other: Voiding Method Urinal Urinal ABP, PAP, CO, CI - Last Documented Arterial Blood Pressure 147/74 Pulmonary Artery Pressure 30/15 Cardiac Output 6.5 Cardiac Index 3.2 - Exam GENERAL EXAM: Revealed 43-year-old white male sitting in a bedside chair, on room air.. HEAD: Normocephalic/atraumatic. EYES: Normal reaction of pupils, equal size. Conjunctiva pink, sclera white. NOSE: Clear with pink turbinates. THROAT: No erythema or exudates. NECK: No masses, no JVD, no thyroid enlargement, no adenopathy. CHEST: No chest wall deformity. Symmetrical expansion. Sternum seems to be stable. Surgical dressing is clean. LUNGS: Clear throughout no crackles or rhonchi or wheezes. CVS: Regular rate and rhythm, normal S1 and S2, no gallops, no murmurs, no rubs ABDOMEN: Soft, nontender. No hepatosplenomegaly, normal bowel sounds, no guarding or rigidity. EXTREMITIES: No clubbing, no edema, no cyanosis, 2+ pulses and upper and lower extremities. MUSCULOSKELETAL: Muscle strength and tone normal. CENTRAL NERVOUS SYSTEM: Alert and oriented -3. No focal deficits, tone is normal in all 4 extremities. PSYCHIATRIC: Normal mood, affect and mental status examination. - Labs CBC & Chem 7: 01/24/19 04:25 01/24/19 04:25 Labs: Abnormal Lab Results - Last 24 Hours (Table) 01/23/19 01/23/19 01/24/19 Range/Units 11:48 20:13 02:33 RBC (4.30-5.90) m/uL Hgb (13.0-17.5) gm/dL Hct (39.0-53.0) % Plt Count (150-450) k/uL Carbon Dioxide (22-30) mmol/L POC Glucose (mg/dL) 106 H 116 H 108 H (75-99) mg/dL 01/24/19 01/24/19 01/24/19 Range/Units 04:25 04:25 07:08 RBC 3.10 L (4.30-5.90) m/uL Hgb 9.6 L (13.0-17.5) gm/dL Hct 28.4 L (39.0-53.0) % Plt Count 149 L (150-450) k/uL Carbon Dioxide 32 H (22-30) mmol/L POC Glucose (mg/dL) 114 H (75-99) mg/dL Assessment and Plan Assessment: Impression: Status post CABG, postoperative day #3 Acute non-ST elevation myocardial infarction Severe left main coronary artery disease History of smoking, tobacco dependence syndrome Significant family history for coronary artery disease. Recommendation: 1: Continue incentive spirometry. Achieving just over thousand and mild. 2: ambulation and bronchodilators 3: Continue statin, Plavix, beta blockers, 4 encourage deep coughing and deep breathing 5 continue pain control 6 we'll continue to follow. Time with Patient: Less than 30
[2019-01-24 12:06] LABS: Glucose,Whole Blood 111 mg/dL (75-99)
[2019-01-24] MEDS: amLODIPine 5 MG TAB PO SCH (12:07)
--- NOTE | 2019-01-24 14:14 | P.PN ---
Subjective Progress Note Date: 01/24/19 Principal diagnosis: Critical left main coronary artery disease, non-STEMI. Previous medical history of untreated hyperlipidemia, current tobacco dependence, mild COPD with preope rative FEV1 65% of predicted, and family history of premature coronary artery disease. POD #3 urgent coronary bypass grafting 3 vessels, left internal mammary artery to the left anterior descending coronary artery, radial artery to the obtuse marginal coronary artery, a reverse greater saphenous vein graft to the posterior lateral branch of the right coronary artery, endoscopic vein harvest of the bilateral greater saphenous veins from the knee to the thigh, epi-aortic ultrasound, intraoperative transesophageal echocardiogram, endoscopic harvesting of the left radial artery. Postoperative acute blood loss anemia, an expected outcome of surgery given cardiopulmonary bypass pump and hemodilution The patient is currently sitting up in the bedside chair in the intensive care unit. He is in no acute distress. He denies any complaints of pain or shortness of breath this time. Bedside telemetry showing sinus tachycardia with a heart rate of 112, remains hemodynamically stable on no inotropes or pressors. No new complaints. Occupational therapy is present to work with the patient, an d he reports that he ambulated in the intensive care unit hallway 2-3 times yesterday. Objective - Vital Signs Vital signs: Vital Signs Temp 98 F 01/24/19 12:00 Pulse 80 01/24/19 12:00 Resp 12 01/24/19 12:00 BP 109/60 01/24/19 12:00 Pulse Ox 94 L 01/24/19 12:00 Intake & Output 01/23/19 01/24/19 01/24/19 18:59 06:59 18:59 Intake Total 940 150 Output Total 850 700 Balance 90 -700 150 Weight 88 kg Intake: IV 200 Lactated Ringers 1,000 ml 200 @ 20 mls/hr IV .Q24H DARIN Rx#:[id number] Intake, IV Titration 0 Amount Insulin Regular 100 unit 0 In Sodium Chloride 0.9% 100 ml @ Per Protocol IV .Q0M DARIN Rx#:[id number] Oral 740 150 Output: Urine 850 700 Other: Voiding Method Urinal Urinal # Voids 2 ABP, PAP, CO, CI - Last Documented Arterial Blood Pressure 147/74 Pulmonary Artery Pressure 30/15 Cardiac Output 6.5 Cardiac Index 3.2 - Constitutional General appearance: Present: cooperative, no acute distress, obese - Respiratory Details: Lungs sounds essentially clear to his upper lobes bilaterally and diminished to his bilateral bases. Respirations are symmetrical and nonlabored. Oxygen saturation are 94% on room air. Achieving 750 mL on his incentive spirometry. - Cardiovascular Details: Regular rhythm and rate. S1 and S2 present, negative for S3, gallop or murmur. Sternum is stable. Atrial and ventricular epicardial pacemaker wires in place and grounded. Heart hugger is in place and he is demonstrating appropriate use. Knee-high MANE hose and sequential compression devices in place to his bilateral lower extremities. Bedside telemetry showing sinus tachycardia heart rate 112. No edema present. - Gastrointestinal Gastrointestinal Comment(s): Abdomen is soft, nontender and nondistended. Active bowel sounds all 4 abdominal quadrants. Tolerating oral intake. Passing flatus. - Genitourinary Genitourinary Comment(s): Voiding clear yellow urine. - Integumentary Integumentary Comment(s): Skin is warm and dry. No clubbing or cyanosis is present. Midline sternal incision is clean, dry and approximated. No drainage or redness is present. Left radial artery harvest sites are clean, dry and approximated. No drainage or redness present. Bilateral lower extremity EVH site clean, dry and approximated. - Neurologic Neurologic: Present: CNII-XII intact - Musculoskeletal Musculoskeletal: Present: gait normal, strength equal bilaterally - Psychiatric Psychiatric: Present: A&O x's 3, appropriate affect, intact judgment & insight - Allied health notes Allied health notes reviewed: nursing - Labs CBC & Chem 7: 01/24/19 04:25 01/24/19 04:25 Labs: Abnormal Lab Results - Last 24 Hours (Table) 01/23/19 01/24/19 01/24/19 Range/Units 20:13 02:33 04:25 RBC 3.10 L (4.30-5.90) m/uL Hgb 9.6 L (13.0-17.5) gm/dL Hct 28.4 L (39.0-53.0) % Plt Count 149 L (150-450) k/uL Carbon Dioxide (22-30) mmol/L POC Glucose (mg/dL) 116 H 108 H (75-99) mg/dL 01/24/19 01/24/19 01/24/19 Range/Units 04:25 07:08 12:05 RBC (4.30-5.90) m/uL Hgb (13.0-17.5) gm/dL Hct (39.0-53.0) % Plt Count (150-450) k/uL Carbon Dioxide 32 H (22-30) mmol/L POC Glucose (mg/dL) 114 H 111 H (75-99) mg/dL - Imaging and Cardiology Chest x-ray: report reviewed, image reviewed Assessment and Plan Assessment: 1. Critical left main stenosis, status post urgent CABG 2. Non-STEMI 3. Hyperlipidemia 4. Current tobacco dependence 5. Mild COPD with preoperative FEV1 65% of predicted 6. Significant family history of premature coronary artery disease 7. History of EtOH abuse 8. Postoperative acute blood loss anemia, an expected outcome of surgery given cardiopulmonary bypass and hemodilution Plan: 1. Continue aspirin, statin, Plavix, beta kimberly therapy. Will increase metop rolol tartrate 50 mg by mouth twice a day. 2. Continue norvasc for arterial spasm. Do not discontinue without checking with Dr. Breen. 3. Wean O2 as tolerated. Encourage incentive spirometry 10 times every hour while awake. 4. Increase activity ambulate as tolerated. PT/OT/cardiac rehab following. 5. Will monitor daily labs, x-rays. Electrolyte replacement therapy per protocol. No transfusion 6. Pain control with current medication regimen. 7. Insulin management per primary care service. 8. Will discontinue his atrial and ventricular epicardial pacemaker wires. 9. [facility] protocol, assess for alcohol withdrawal. 10. Patient will likely need rehab at discharge as he lives alone. Social work following. 11. Transfer orders for in place 3 S. cardiac stepdown unit. May transfer when bed available. 12. More recommendations to follow based on patient's clinical course. Atrial and ventricular epicardial pacemaker wires removed today at 10:40 AM without incident. Patient will be on bed rest for 1 hour post pacemaker wire removal. Time with Patient: Greater than 30
[2019-01-24 17:04] LABS: Glucose,Whole Blood 105 mg/dL (75-99)
--- NOTE | 2019-01-24 17:36 | P.PN ---
Subjective Progress Note Date: 01/24/19 (delayed charting seen at 0845) Principal diagnosis: chest pain Patient is a 43-year-old male with no significant past medical history who presented to the emergency department with complaints of chest pain. Patient is a significant history of family coronary artery disease. In the ER he underwent an extensive evaluation. He was found to have elevated troponins at 0.81 and an EKG that did show some changes throughout the course the ER visit. He was started on aspirin, Lipitor, metoprolol, and a heparin drip. He was admitted for non-STEMI. His troponin maxed at0.108. Cardiology was consulted. He underwent cardiac cath which showed critical disease involving the proximal left main coronary. Dr. Desai felt that he should undergo coronary artery bypass grafting and cardiovascular thoracic surgery was subsequently consulted. Patient underwent triple vessel coronary artery bypass grafting on 01/21. He was extubated the same day. He is continuing to progress well after surgery. Patient seen and examined at bedside in ICU. He states his pain is well c ontrolled. He denies any shortness of breath. He has been up and walking. States he's eating well. He has not had a bowel movement after surgery but feels as though he might today. No other complaints currently. Objective - Vital Signs Vital signs: Vital Signs Temp 98.7 F 01/24/19 16:00 Pulse 82 01/24/19 16:26 Resp 15 01/24/19 16:00 BP 141/82 01/24/19 16:00 Pulse Ox 97 01/24/19 16:00 Intake & Output 01/23/19 01/24/19 01/24/19 18:59 06:59 18:59 Intake Total 940 150 Output Total 850 700 350 Balance 90 -700 -200 Weight 88 kg Intake: IV 200 Lactated Ringers 1,000 ml 200 @ 20 mls/hr IV .Q24H DARIN Rx#:[id number] Intake, IV Titration 0 Amount Insulin Regular 100 unit 0 In Sodium Chloride 0.9% 100 ml @ Per Protocol IV .Q0M DARIN Rx#:[id number] Oral 740 150 Output: Urine 850 700 350 Other: Voiding Method Urinal Urinal # Voids 2 ABP, PAP, CO, CI - Last Documented Arterial Blood Pressure 147/74 Pulmonary Artery Pressure 30/15 Cardiac Output 6.5 Cardiac Index 3.2 - Exam General: non toxic, no distress, appears at stated age Derm: warm, dry Head: atraumatic, normocephalic, symmetric Eyes: EOMI, no lid lag, anicteric sclera Mouth: no lip lesion, mucus membranes moist Cardiovascular: S1S2 reg, no murmur, positive posterior tibial pulse bilateral, Lungs: Breath sounds bilateral bases, no rhonchi, no rales , no accessory muscle use Abdominal: soft, nontender to palpation, no guarding, no appreciable organomegaly Ext: no gross muscle atrophy, no edema, no contractures Neuro: CN II-XI grossly intact, no focal neuro deficits Psych: Alert, oriented, flat affect - Labs CBC & Chem 7: 01/24/19 04:25 01/24/19 04:25 Labs: Abnormal Lab Results - Last 24 Hours (Table) 01/23/19 01/24/19 01/24/19 Range/Units 20:13 02:33 04:25 RBC 3.10 L (4.30-5.90) m/uL Hgb 9.6 L (13.0-17.5) gm/dL Hct 28.4 L (39.0-53.0) % Plt Count 149 L (150-450) k/uL Carbon Dioxide (22-30) mmol/L POC Glucose (mg/dL) 116 H 108 H (75-99) mg/dL 01/24/19 01/24/19 01/24/19 Range/Units 04:25 07:08 12:05 RBC (4.30-5.90) m/uL Hgb (13.0-17.5) gm/dL Hct (39.0-53.0) % Plt Count (150-450) k/uL Carbon Dioxide 32 H (22-30) mmol/L POC Glucose (mg/dL) 114 H 111 H (75-99) mg/dL 01/24/19 Range/Units 17:02 RBC (4.30-5.90) m/uL Hgb (13.0-17.5) gm/dL Hct (39.0-53.0) % Plt Count (150-450) k/uL Carbon Dioxide (22-30) mmol/L POC Glucose (mg/dL) 105 H (75-99) mg/dL Assessment and Plan Assessment: Triple-vessel coronary artery disease status post bypass grafting, NSTEMI -Aspirin, Lipitor, metoprolol, Plavix -Management per cardiovascular thoracic -A1c 5.5, blood pressure controlled, and LDL 52 Postoperative acute blood loss anemia, expected outcome of surgery -CBC is stable, continue to monitor Hypertension, controlled -Continue with metoprolol -Norvasc Overweight with BMI 28.6 -Outpatient structured weight loss Tobacco abuse -Cessation recommended Mild COPD -Pulmonary recommendations appreciated -Patient is on scheduled and when necessary DuoNeb's DVT prophylaxis: Heparin Discussed with: Patient, nursing, Chino Burrows NP Anticipated discharge: per CVT Anticipated discharge place: Likely IPR A total of 35 minutes was spent on the care of this complex patient more than 50% of the time was spent in counseling and care coordination.
[2019-01-24 21:23] LABS: Glucose,Whole Blood 144 mg/dL (75-99)
[2019-01-24] MEDS: SENNOSIDES-DOCUSATE SODIUM 1 EACH TAB PO SCH (21:43)
[2019-01-25 02:06] LABS: Glucose,Whole Blood 136 mg/dL (75-99)
[2019-01-25 05:39] LABS: HCT 27.4 % (39.0-53.0); HGB 9.4 gm/dL (13.0-17.5); MCH 31.4 pg (25.0-35.0); MCHC 34.2 g/dL (31.0-37.0); Mean Platelet Volume 7.5; Platelet Count 174 k/uL (150-450); RBC 2.98 m/uL (4.30-5.90); RDW 13.7 % (11.5-15.5); WBC 8.7 k/uL (3.8-10.6)
[2019-01-25 05:46] LABS: Anion Gap 6 mmol/L; Blood Urea Nitrogen 19 mg/dL (9-20); Calcium 8.7 mg/dL (8.4-10.2); Carbon Dioxide 30 mmol/L (22-30); Chloride 103 mmol/L (98-107); Glucose 101 mg/dL (74-99); Potassium 4.3 mmol/L (3.5-5.1); Sodium 139 mmol/L (137-145)
[2019-01-25] MEDS: KETOROLAC 30 MG/ML 1 ML VIAL IVP SCH ×4 (05:48→23:16)
--- NOTE | 2019-01-25 06:46 | XR ---
EXAMINATION TYPE: XR chest 1V portable DATE OF EXAM: 01/25/2019 HISTORY: Postoperative CABG. REFERENCE: Previous study dated 01/24/2019. FINDINGS: There has been a midline sternotomy. There is bibasilar airspace disease. There is a small left-sided effusion. The heart is mildly enlarged. IMPRESSION: 1. BIBASILAR AIRSPACE DISEASE. 2. SMALL LEFT EFFUSION. 3. MILD CARDIOMEGALY.
[2019-01-25] MEDS: IPRATROPIUM-ALBUTEROL 3 ML NEB INHALATION SCH ×4 (06:58→20:17)
[2019-01-25 06:59] LABS: Glucose,Whole Blood 121 mg/dL (75-99)
[2019-01-25] MEDS: INSULIN ASPART (NovoLOG) 100 UNIT/ML VIAL SQ SCH ×4 (07:00→21:38)
[2019-01-25] MEDS: PANTOPRAZOLE 40 MG TABLET PO SCH (07:18)
[2019-01-25] MEDS: THIAMINE 100 MG TAB PO SCH ×2 (07:18→17:27)
[2019-01-25] MEDS: ASPIRIN 325 MG TAB PO SCH (09:50)
[2019-01-25] MEDS: HEPARIN SODIUM,PORCINE 5,000 UNIT/ML 1 ML VIAL SQ SCH ×3 (09:50→23:16)
[2019-01-25] MEDS: ATORVASTATIN 40 MG TAB PO SCH (09:50)
--- NOTE | 2019-01-25 09:51 | P.PN ---
Subjective Progress Note Date: 01/25/19 Principal diagnosis: Status post CABG 3 with VELASQUEZ to LAD, radial to obtuse marginal and SVG to RCA. Postoperative day # 4 This is a 43-year-old white male, [id number] smoker, strong family history of premature coronary artery disease, no history of hypertension, no history of diabetes, patient presented to the ER yesterday with severe substernal chest discomfort. Patient felt a sudden onset of squeezing chest pain and discomfort associated with numbness in the right arm. It was also associated with diaphoresis and sweating. Upon presentation, his first set of troponin came back slightly elevated, EKG showed nonspecific changes in the inferior lateral leads but subsequent EKG showed T-wave inversion in the inferior lateral leads quite concerning for ischemia. Patient underwent cardiac catheterization, and it showed a critical disease involving the left main coronary artery in its proximal portion in the range of 99.9%. Patient was referred to cardiac surger y, and he will be scheduled for myocardial revascularization in the next 24 hours. Considering his smoking history, I was asked to see him on consultation for pulmonary clearance. Patient had no history to suggest underlying COPD, however he had a [id number] smoking history. And smoked until recently. Patient denies any cough no wheezing, no shortness of breath. Preoperative spirometry is pending. In the meantime the patient was given incentive spirometer, and instructed on its use. Chest x-ray on admission showed no active cardiopulmonary disease On 01/20/2019 patient seen again in follow-up on the selective care unit, he is resting comfortably in bed, in no acute distress, denies any chest pain, denies any gouty breathing, his lung sounds are clear, he is on room air, saturation is 96%, patient is on heparin drip, no acute events overnight. Patient is using his incentive spirometer, he is able to achieve 2500 on the today. Today's labs have been reviewed and are unremarkable. Patient is scheduled for surgery tomorrow for 2 possibly 3 aortocoronary bypasses On 01/22/2019, patient is status post CABG, postoperative day #1. Patient underwent VELASQUEZ to LAD, radial to obtuse marginal and SVG to RCA. Patient is doing great today, he was extubated a few hours after he was admitted to the ICU overnight. Presently no cough no wheezing no shortness of breath, feels general ly sore. Patient is doing well with incentive spirometry, and his chest x-ray showed mild cardiomegaly, minimal pulmonary vascular congestion, and basilar atelectasis bilaterally. Labs were reviewed relatively normal CBC. Hemoglobin is 11.3. Electrolytes are normal except for slightly elevated potassium of 5.5, rest of the labs were unremarkable. On 01/23/2019, patient was reevaluated again in the ICU, doing well, has mostly some chest pain at the surgical site. Denies any cough no wheezing, no shortness of breath, achieve's 800 mL via incentive spirometer. Chest x-ray showed patchy atelectasis and small pleural effusions. Labs were reviewed basically unremarkable. On 01/24/2019, patient remains in the ICU, doing well, relatively asymptomatic, no cough no wheezing no shortness of breath, able to clear secretions quite well, doing much with incentive spirometry, remains on maximal medical therapy with antiplatelet therapy, calcium channel blockers and statins. Chest x-ray is showing bibasilar atelectasis, possibility of early infiltrate in the right lower lobe is not entirely ruled out but felt to be less likely based on the clinical picture. Hence we'll not start antibiotics at this point yet. Reevaluated in the ICU today on 01/25/2019, patient continues to do well, prog ressing nicely from his recent CABG. No cough no wheezing no shortness of breath. Relatively asymptomatic, discharge planning is in progress. Chest x- ray was reviewed and it is reassuring. Objective - Vital Signs Vital signs: Vital Signs Temp 98.7 F 01/25/19 04:00 Pulse 82 01/25/19 07:10 Resp 16 01/25/19 04:00 BP 119/89 01/25/19 04:00 Pulse Ox 93 L 01/25/19 04:00 Intake & Output 01/24/19 01/25/19 01/25/19 18:59 06:59 18:59 Intake Total 150 480 Output Total 350 465 Balance -200 15 Weight 84.9 kg Intake: Oral 150 480 Output: Drainage 15 Left Wrist 15 Urine 350 450 Other: Voiding Method Urinal Urinal # Voids 2 1 ABP, PAP, CO, CI - Last Documented Arterial Blood Pressure 147/74 Pulmonary Artery Pressure 30/15 Cardiac Output 6.5 Cardiac Index 3.2 - Exam GENERAL EXAM: Revealed 43-year-old white male sitting in a bedside chair, on room air.. HEAD: Normocephalic/atraumatic. EYES: Normal reaction of pupils, equal size. Conjunctiva pink, sclera white. NOSE: Clear with pink turbinates. THROAT: No erythema or exudates. NECK: No masses, no JVD, no thyroid enlargement, no adenopathy. CHEST: No chest wall deformity. Symmetrical expansion. Sternum seems to be stable. LUNGS: Clear throughout no crackles or rhonchi or wheezes. CVS: Regular rate and rhythm, normal S1 and S2, no gallops, no murmurs, no rubs ABDOMEN: Soft, nontender. No hepatosplenomegaly, normal bowel sounds, no guarding or rigidity. EXTREMITIES: No clubbing, no edema, no cyanosis, 2+ pulses and upper and lower extremities. MUSCULOSKELETAL: Muscle strength and tone normal. CENTRAL NERVOUS SYSTEM: Alert and oriented -3. No focal deficits, tone is normal in all 4 extremities. PSYCHIATRIC: Normal mood, affect and mental status examination. - Labs CBC & Chem 7: 01/25/19 05:03 01/25/19 05:03 Labs: Abnormal Lab Results - Last 24 Hours (Table) 01/24/19 01/24/19 01/24/19 Range/Units 12:05 17:02 21:21 RBC (4.30-5.90) m/uL Hgb (13.0-17.5) gm/dL Hct (39.0-53.0) % Glucose (74-99) mg/dL POC Glucose (mg/dL) 111 H 105 H 144 H (75-99) mg/dL 01/25/19 01/25/19 01/25/19 Range/Units 02:04 05:03 05:03 RBC 2.98 L (4.30-5.90) m/uL Hgb 9.4 L (13.0-17.5) gm/dL Hct 27.4 L (39.0-53.0) % Glucose 101 H (74-99) mg/dL POC Glucose (mg/dL) 136 H (75-99) mg/dL 01/25/19 Range/Units 06:57 RBC (4.30-5.90) m/uL Hgb (13.0-17.5) gm/dL Hct (39.0-53.0) % Glucose (74-99) mg/dL POC Glucose (mg/dL) 121 H (75-99) mg/dL Assessment and Plan Assessment: Impression: Status post CABG, postoperative day number Acute non-ST elevation myocardial infarction Severe left main coronary artery disease History of smoking, tobacco dependence syndrome Significant family history for coronary artery disease. Recommendation: 1: Continue incentive spirometry. 2: ambulation and bronchodilators 3: Continue statin, Plavix, beta blockers, 4 encourage deep coughing and deep breathing 5 continue pain control Agree with discharge planning possibly today. Follow-up on outpatient basis. Time with Patient: Less than 30
[2019-01-25] MEDS: METOPROLOL TARTRATE 50 MG TAB PO SCH ×2 (09:52→21:10)
[2019-01-25] MEDS: MULTIVITAMINS, THERA 1 EACH TAB PO SCH (09:52)
[2019-01-25] MEDS: CLOPIDOGREL 75 MG TAB PO SCH (09:53)
--- NOTE | 2019-01-25 11:15 | P.PN ---
Subjective Progress Note Date: 01/25/19 Principal diagnosis: Critical left main coronary artery disease, non-STEMI. Previous medical history of untreated hyperlipidemia, current tobacco dependence, mild COPD with preope rative FEV1 65% of predicted, and family history of premature coronary artery disease. POD #4 urgent coronary bypass grafting 3 vessels, left internal mammary artery to the left anterior descending coronary artery, radial artery to the obtuse marginal coronary artery, a reverse greater saphenous vein graft to the posterior lateral branch of the right coronary artery, endoscopic vein harvest of the bilateral greater saphenous veins from the knee to the thigh, epi-aortic ultrasound, intraoperative transesophageal echocardiogram, endoscopic harvesting of the left radial artery. Postoperative acute blood loss anemia, an expected outcome of surgery given cardiopulmonary bypass pump and hemodilution The patient is currently sitting up in the bedside chair in the intensive care unit. He is ambulating in his room and reports that he has already ambulated in the intensive care unit hallway this morning. He is in no acute distress. He denies any complaints of pain or shortness of breath this time. Bedside telemetry showing normal sinus rhythm heart rate 93. Remains hemodynamically stable and is on no inotropes or pressors. No new complaints. Demonstrating good use of his heart hugger. Objective - Vital Signs Vital signs: Vital Signs Temp 98.7 F 01/25/19 04:00 Pulse 82 01/25/19 07:10 Resp 16 01/25/19 04:00 BP 119/89 01/25/19 04:00 Pulse Ox 93 L 01/25/19 04:00 Intake & Output 01/24/19 01/25/19 01/25/19 18:59 06:59 18:59 Intake Total 150 480 Output Total 350 465 Balance -200 15 Weight 84.9 kg Intake: Oral 150 480 Output: Drainage 15 Left Wrist 15 Urine 350 450 Other: Voiding Method Urinal Urinal # Voids 2 1 ABP, PAP, CO, CI - Last Documented Arterial Blood Pressure 147/74 Pulmonary Artery Pressure 30/15 Cardiac Output 6.5 Cardiac Index 3.2 - Constitutional General appearance: Present: cooperative, no acute distress, obese - Respiratory Details: Lungs sounds essentially clear throughout. Respirations are symmetrical and nonlabored. Oxygen saturation are 93% on room air. Achieving 1000 mL on his incentive spirometry. Strong productive cough with monte thin sputum - Cardiovascular Details: Regular rhythm and rate. S1 and S2 present, negative for S3, gallop or murmur. Sternum is stable. Bedside telemetry showing normal sinus rhythm heart rate 93. No edema present. Heart hugger is in place and he is demonstrating appropriate use. Knee-high MANE hose and sequential compression devices in place to his bilateral lower extremities. - Gastrointestinal Gastrointestinal Comment(s): Abdomen is soft, nontender and nondistended. Active bowel sounds all 4 abdominal quadrants. Tolerating oral intake. Bowel movement this a.m. - Genitourinary Genitourinary Comment(s): Voiding clear yellow urine. - Integumentary Integumentary Comment(s): Skin is warm and dry. No clubbing or cyanosis is present. Midline sternal incision is clean, dry and approximated. No drainage or redness is present. Bilateral lower extremity EVH site clean, dry and approximated. No drainage or redness is present. Left radial harvest site is clean, dry and approximated. No drainage or redness is present. - Neurologic Neurologic: Present: CNII-XII intact - Musculoskeletal Musculoskeletal: Present: gait normal, strength equal bilaterally - Psychiatric Psychiatric: Present: A&O x's 3, appropriate affect, intact judgment & insight - Allied health notes Allied health notes reviewed: nursing - Labs CBC & Chem 7: 01/25/19 05:03 01/25/19 05:03 Labs: Abnormal Lab Results - Last 24 Hours (Table) 01/24/19 01/24/19 01/24/19 Range/Units 12:05 17:02 21:21 RBC (4.30-5.90) m/uL Hgb (13.0-17.5) gm/dL Hct (39.0-53.0) % Glucose (74-99) mg/dL POC Glucose (mg/dL) 111 H 105 H 144 H (75-99) mg/dL 01/25/19 01/25/19 01/25/19 Range/Units 02:04 05:03 05:03 RBC 2.98 L (4.30-5.90) m/uL Hgb 9.4 L (13.0-17.5) gm/dL Hct 27.4 L (39.0-53.0) % Glucose 101 H (74-99) mg/dL POC Glucose (mg/dL) 136 H (75-99) mg/dL 01/25/19 Range/Units 06:57 RBC (4.30-5.90) m/uL Hgb (13.0-17.5) gm/dL Hct (39.0-53.0) % Glucose (74-99) mg/dL POC Glucose (mg/dL) 121 H (75-99) mg/dL - Imaging and Cardiology Chest x-ray: report reviewed, image reviewed Assessment and Plan Assessment: 1. Critical left main stenosis, status post urgent CABG 2. Non-STEMI 3. Hyperlipidemia 4. Current tobacco dependence 5. Mild COPD with preoperative FEV1 65% of predicted 6. Significant family history of premature coronary artery disease 7. History of EtOH abuse 8. Postoperative acute blood loss anemia, an expected outcome of surgery given cardiopulmonary bypass and hemodilution Plan: 1. Continue aspirin, statin, Plavix, beta kimberly therapy. Will increase metoprolol tartrate as tolerated. 2. Continue norvasc for radial arterial spasm prophylaxis. Do not discontinue without checking with Dr. Breen. 3. Encourage incentive spirometry 10 times every hour while awake. 4. Increase activity ambulate as tolerated. PT/OT/cardiac rehab following. 5. Will monitor daily labs, x-rays. Electrolyte replacement therapy per lucia col. 6. Pain control with current medication regimen. 7. Insulin management per primary care service. 8. [facility] protocol, assess for alcohol withdrawal. 9. Discharge planning in place, and anticipate discharge home with home health care services within the next 24 hours.. 11. Transfer orders for in place 3 S. cardiac stepdown unit. May transfer when bed available. 12. More recommendations to follow based on patient's clinical course. Time with Patient: Greater than 30
[2019-01-25 11:48] LABS: Glucose,Whole Blood 104 mg/dL (75-99)
--- NOTE | 2019-01-25 12:37 | P.PN ---
Subjective Progress Note Date: 01/25/19 Principal diagnosis: Acute non-ST deviation DC This is a pleasant 43-year-old gentleman with history of smoking and significant family history of coronary artery disease presented to the emergency room with a chest discomfort and he was found to have mildly abnormal cardiac enzymes as well as ST changes in the inferolateral leads highly suggestive of severe underlying coronary artery disease. Because of that the patient underwent a heart catheterization last night showed critical disease involving the left main coronary artery. He underwent coronary artery bypass grafting 3 with VELASQUEZ to LAD, radial to OM, and vein graft to RCA. On follow-up with the patient today, January [id number], the patient is doing good clinically. Hemodynamically he continues to be stable. He is on maximize medical treatment consistent of dual antiplatelet therapy, calcium channel kimberly for the radial graft, and he is on statin as well. He can be transferred out of the ICU. Possible discharge in the next 24-48 hours. Objective - Vital Signs Vital signs: Vital Signs Temp 98.7 F 01/25/19 08:00 Pulse 76 01/25/19 11:34 Resp 16 01/25/19 08:00 BP 140/80 01/25/19 08:00 Pulse Ox 93 L 01/25/19 08:00 Intake & Output 01/24/19 01/25/19 01/25/19 18:59 06:59 18:59 Intake Total 150 480 Output Total 350 465 Balance -200 15 Weight 84.9 kg Intake: Oral 150 480 Output: Drainage 15 Left Wrist 15 Urine 350 450 Other: Voiding Method Urinal Urinal Urinal # Voids 2 1 2 ABP, PAP, CO, CI - Last Documented Arterial Blood Pressure 147/74 Pulmonary Artery Pressure 30/15 Cardiac Output 6.5 Cardiac Index 3.2 - Constitutional General appearance: Present: no acute distress - Respiratory Respiratory: bilateral: CTA - Cardiovascular Rhythm: regular Heart sounds: normal: S1, S2 - Labs CBC & Chem 7: 01/25/19 05:03 01/25/19 05:03 Labs: Abnormal Lab Results - Last 24 Hours (Table) 01/24/19 01/24/19 01/25/19 Range/Units 17:02 21:21 02:04 RBC (4.30-5.90) m/uL Hgb (13.0-17.5) gm/dL Hct (39.0-53.0) % Glucose (74-99) mg/dL POC Glucose (mg/dL) 105 H 144 H 136 H (75-99) mg/dL 01/25/19 01/25/19 01/25/19 Range/Units 05:03 05:03 06:57 RBC 2.98 L (4.30-5.90) m/uL Hgb 9.4 L (13.0-17.5) gm/dL Hct 27.4 L (39.0-53.0) % Glucose 101 H (74-99) mg/dL POC Glucose (mg/dL) 121 H (75-99) mg/dL 01/25/19 Range/Units 11:47 RBC (4.30-5.90) m/uL Hgb (13.0-17.5) gm/dL Hct (39.0-53.0) % Glucose (74-99) mg/dL POC Glucose (mg/dL) 104 H (75-99) mg/dL Assessment and Plan Assessment: Assessment #1 acute non-ST deviation myocardial infarction #2 severe left main coronary artery disease and status post CABG #3 history of smoking #4 significant family history of coronary artery disease Plan #1 continue the current medical regimen #2 continue Norvasc #3 possible discharge in the next 24-48 hours
[2019-01-25] MEDS: amLODIPine 5 MG TAB PO SCH (13:01)
[2019-01-25 17:45] LABS: Glucose,Whole Blood 126 mg/dL (75-99)
--- NOTE | 2019-01-25 20:04 | P.PN ---
Subjective Progress Note Date: 01/25/19 (Delayed charting seen at 9:30) Principal diagnosis: chest pain Patient is a 43-year-old male with no significant past medical history who presented to the emergency department with complaints of chest pain. Patient is a significant history of family coronary artery disease. In the ER he underwent an extensive evaluation. He was found to have elevated troponins at 0.81 and an EKG that did show some changes throughout the course the ER visit. He was started on aspirin, Lipitor, metoprolol, and a heparin drip. He was admitted for non-STEMI. His troponin maxed at0.108. Cardiology was consulted. He underwent cardiac cath which showed critical disease involving the proximal left main coronary. Dr. Desai felt that he should undergo coronary artery bypass grafting and cardiovascular thoracic surgery was subsequently consulted. Patient underwent triple vessel coronary artery bypass grafting on 01/21. He was extubated the same day. He is continuing to progress well after surgery. Patient seen and examined at bedside in ICU. He has been up a lot and amb ulating in the hallways and doing well. Pain is manageable. No shortness of breath. No nausea or vomiting. Still has not had a bowel movement today. Objective - Vital Signs Vital signs: Vital Signs Temp 98.1 F 01/25/19 16:00 Pulse 80 01/25/19 16:30 Resp 15 01/25/19 16:00 BP 119/89 01/25/19 16:00 Pulse Ox 92 L 01/25/19 16:00 Intake & Output 01/25/19 01/25/19 01/26/19 06:59 18:59 06:59 Intake Total 480 Output Total 465 Balance 15 Weight 84.9 kg Intake: Oral 480 Output: Drainage 15 Left Wrist 15 Urine 450 Other: Voiding Method Urinal Urinal # Voids 1 1 ABP, PAP, CO, CI - Last Documented Arterial Blood Pressure 147/74 Pulmonary Artery Pressure 30/15 Cardiac Output 6.5 Cardiac Index 3.2 - Exam General: non toxic, no distress, appears at stated age Derm: warm, dry Cardiovascular: S1S2 reg, no murmur, positive posterior tibial pulse bilateral, Lungs: Breath sounds bilateral bases, no rhonchi, no rales , no accessory muscle use Abdominal: soft, nontender to palpation, no guarding, no appreciable organomegaly Ext: no gross muscle atrophy, no edema, no contractures Neuro: CN II-XI grossly intact, no focal neuro deficits Psych: Alert, oriented, flat affect - Labs CBC & Chem 7: 01/25/19 05:03 01/25/19 05:03 Labs: Abnormal Lab Results - Last 24 Hours (Table) 01/24/19 01/25/19 01/25/19 Range/Units 21:21 02:04 05:03 RBC 2.98 L (4.30-5.90) m/uL Hgb 9.4 L (13.0-17.5) gm/dL Hct 27.4 L (39.0-53.0) % Glucose (74-99) mg/dL POC Glucose (mg/dL) 144 H 136 H (75-99) mg/dL 01/25/19 01/25/19 01/25/19 Range/Units 05:03 06:57 11:47 RBC (4.30-5.90) m/uL Hgb (13.0-17.5) gm/dL Hct (39.0-53.0) % Glucose 101 H (74-99) mg/dL POC Glucose (mg/dL) 121 H 104 H (75-99) mg/dL 01/25/19 Range/Units 17:09 RBC (4.30-5.90) m/uL Hgb (13.0-17.5) gm/dL Hct (39.0-53.0) % Glucose (74-99) mg/dL POC Glucose (mg/dL) 126 H (75-99) mg/dL Assessment and Plan Assessment: Triple-vessel coronary artery disease status post bypass grafting, NSTEMI -Aspirin, Lipitor, metoprolol, Plavix -Management per cardiovascular thoracic -A1c 5.5, blood pressure controlled, and LDL 52 Postoperative acute blood loss anemia, expected outcome of surgery -CBC is stable, continue to monitor Hypertension, controlled -Continue with metoprolol -Norvasc Overweight with BMI 28.6 -Outpatient structured weight loss Tobacco abuse -Cessation recommended Mild COPD -Pulmonary recommendations appreciated -Patient is on scheduled and when necessary DuoNeb's DVT prophylaxis: Heparin Discussed with: Patient, nursing, [place] Burrows NP Anticipated discharge: per CVT Anticipated discharge place: Likely home in a.m. A total of 35 minutes was spent on the care of this complex patient more than 50% of the time was spent in counseling and care coordination.
[2019-01-25 21:08] LABS: Glucose,Whole Blood 135 mg/dL (75-99)
[2019-01-25] MEDS: SENNOSIDES-DOCUSATE SODIUM 1 EACH TAB PO SCH (21:10)
[2019-01-26 02:20] LABS: Glucose,Whole Blood 117 mg/dL (75-99)
[2019-01-26 05:26] VITALS: RESP 16
[2019-01-26 05:29] LABS: HCT 27.3 % (39.0-53.0); MCH 30.2 pg (25.0-35.0); MCHC 32.9 g/dL (31.0-37.0); MCV 91.9 fL (80.0-100.0); Mean Platelet Volume 7.4; Platelet Count 237 k/uL (150-450); RBC 2.98 m/uL (4.30-5.90); RDW 13.4 % (11.5-15.5); WBC 7.8 k/uL (3.8-10.6)
[2019-01-26 05:37] LABS: Anion Gap 6 mmol/L; Blood Urea Nitrogen 17 mg/dL (9-20); Calcium 8.7 mg/dL (8.4-10.2); Carbon Dioxide 28 mmol/L (22-30); Chloride 106 mmol/L (98-107); Glucose 99 mg/dL (74-99); Potassium 4.1 mmol/L (3.5-5.1); Sodium 140 mmol/L (137-145)
[2019-01-26 06:52] LABS: Glucose,Whole Blood 106 mg/dL (75-99)
[2019-01-26] MEDS: INSULIN ASPART (NovoLOG) 100 UNIT/ML VIAL SQ SCH (07:06)
[2019-01-26] MEDS: KETOROLAC 30 MG/ML 1 ML VIAL IVP SCH (07:09)
[2019-01-26] MEDS: PANTOPRAZOLE 40 MG TABLET PO SCH (07:09)
[2019-01-26] MEDS: THIAMINE 100 MG TAB PO SCH (07:13)
--- NOTE | 2019-01-26 07:25 | XR ---
EXAMINATION TYPE: XR chest 1V portable DATE OF EXAM: 01/26/2019 Comparison: 01/25/2019 Clinical History: 43-year-old male SOB Findings: Heart remains mildly enlarged. Median sternotomy wires and post-CABG clips in the mediastinum. Patchy airspace opacity mid and lower lungs. Somewhat nodular density at the peripheral right base suspecte d to represent summation artifact, not seen previously, and should be reassessed at follow-up. Impression: Mild cardiomegaly with patchy mid and lower lung infiltrates, stable to minimally improved. Density has a somewhat nodular configuration at the peripheral right base, not seen previously, suspe cted summation artifact. Attention at follow-up.
[2019-01-26] MEDS: IPRATROPIUM-ALBUTEROL 3 ML NEB INHALATION SCH ×2 (07:26→11:54)
[2019-01-26 08:07] VITALS: BP 100/83; TEMP 98.2
--- NOTE | 2019-01-26 08:16 | PN ---
PROGRESS NOTE DATE OF SERVICE: January 26, 2019 This is a 43-year-old gentleman admitted on January 18. He underwent a bypass grafting on January 21. He had a three-vessel bypass. He was extubated the following day. He apparently developed a non ST-segment elevation myocardial infarction, which led to the evaluation and subsequent surgery. Currently doing relatively well. Resting comfortably in the room on room air. Not receiving any IV fluids. Apparently, the patient was to be discharged home yesterday, but apparently some family members are ill so they kept the patient in the hospital. He appears to be postop day #5. In addition to the bypass grafting and the non ST-segment elevation myocardial infarction, the patient has a history of tobacco use, left main disease, and significant family history for coronary artery disease. Again, currently he is doing well. Doing reasonably well with his incentive spirometry as well as deep breathing, coughing and clearing of secretions. He denies any chest pain or discomfort, fever, chills, nausea, vomiting, diarrhea, chest congestion or cough. Not producing any phlegm. Current vital signs include a temperature 98, heart rate 80, respiratory rate 16, blood pressure 125/82, mean 96 and saturations on room air between 95% and 96%. Appears in no acute distress. HEENT examination is grossly unremarkable. No nasal O2 noted. NECK: Supple. Full range of motion. No adenopathy or thyromegaly. Neck veins are flat. CARDIOVASCULAR: Examination reveals regular rhythm and rate. S1, S2 normal. There is no S3, S4, or murmur. LUNGS: Are relatively clear. A few scattered mild rhonchi. No wheezes or crackles. ABDOMEN: Soft. Bowel sounds are heard. EXTREMITIES: Are intact. No cyanosis, clubbing, or edema. SKIN: Without rash. NEUROLOGIC: Examination is nonfocal. Labs are reviewed. White count 7.8, hemoglobin 9, hematocrit 27.3, platelet count 237,000. Sodium 140, potassium 4.1, chloride 106, CO2 of 28. Anion gap is 6. BUN and creatinine were 17 and 0.76. Microbiology is negative. A chest x-ray from the shows some mild cardiomegaly and some mild fluid overload with small effusions and some basilar atelectasis. Medications are reviewed. ASSESSMENT: 1. Postoperative day #5, status post 3-vessel bypass grafting. 2. Routine postoperative ventilator management, recovered. 3. Acute mce-AC-voolyif elevation myocardial infarction. 4. Severe left main coronary artery disease. 5. History of previous tobacco use and tobacco dependence syndrome. 6. Significant family history of coronary artery disease. PLAN: The patient is doing much better. We will continue to follow. We encourage deep breathing, coughing, clearing of secretions and hourly use of incentive spirometer. Additional recommendations and suggestions are forthcoming. Medications appear to be appropriate. We will continue to follow until discharge. MMODL / IJN: [id number] /
--- NOTE | 2019-01-26 08:34 | PN ---
PROGRESS NOTE Mr. Ureña is a 43-year-old male who presented on the with a chest discomfort and EKG changes. He underwent cardiac catheterization by Dr. Desai and was found to have ostial left main disease. He subsequently underwent coronary artery bypass grafting by Dr. Balbuena on the 21 of January where he received a VELASQUEZ to the LAD, radial to the obtuse marginal branch and saphenous vein graft to the posterior lateral branch of the right coronary artery. He is doing well this morning. His breathing is stable. His energy is better. He denied any chest pain. He denies any dizziness. He has been using the incentive spirometry and continued be in sinus mechanism. He continues to be at this time on aspirin once a day, Lipitor 40 mg daily, Plavix 75 mg daily, metoprolol tartrate 50 mg twice a day. PHYSICAL EXAMINATION: Blood pressure 125/80 with the heart rate in 70s. LUNGS: Clear. HEART: Regular rate and rhythm. S1, S2. No S3. No rub appreciated. ABDOMEN: Soft, nontender. EXTREMITIES: No edema. LAB DATA: Lab data revealed BUN and creatinine 17 and 0.76. Hemoglobin of 9. IMPRESSION: 1. Status post coronary artery bypass grafting, stable. 2. Hyperlipidemia, treated. 3. History of smoking. RECOMMENDATION: From the cardiac standpoint, I will continue present therapy, increase incentive spirometry and I am hopeful he will be able to be discharged home soon. BRIT / LEXA: [id number] /
[2019-01-26] MEDS: CLOPIDOGREL 75 MG TAB PO SCH (08:42)
[2019-01-26] MEDS: MULTIVITAMINS, THERA 1 EACH TAB PO SCH (08:42)
[2019-01-26] MEDS: ASPIRIN 325 MG TAB PO SCH (08:42)
[2019-01-26] MEDS: HEPARIN SODIUM,PORCINE 5,000 UNIT/ML 1 ML VIAL SQ SCH (08:42)
[2019-01-26] MEDS: ATORVASTATIN 40 MG TAB PO SCH (08:42)
[2019-01-26] MEDS: METOPROLOL TARTRATE 50 MG TAB PO SCH (08:45)
[2019-01-26] MEDS ORDERED: FUROSEMIDE 10 MG/ML 2 ML VIAL IV STA (10:09)
[2019-01-26 11:53] LABS: Glucose,Whole Blood 104 mg/dL (75-99)
--- NOTE | 2019-01-26 11:54 | P.DS ---
Providers Date of admission: 01/18/19 21:44 Expected date of discharge: 01/26/19 Attending physician: Phillip Balbuena Consults: 01/18/19 21:44 Consult Physician Urgent Consulting Provider: Eduar Desai Consult Reason/Comments: NSTEMI Do you want consulting provider notified?: Already Contacted 01/19/19 01:00 Consult Physician Urgent Consulting Provider: Saji Purvis Consult Reason/Comments: left main artery disease, 99% occlusion Do you want consulting provider notified?: Yes, Notify in am 01/19/19 09:49 Consult Physician Routine Consulting Provider: Esau Singh Consult Reason/Comments: preop cabg clearence Do you want consulting provider notified?: Already Contacted 01/19/19 12:41 Consult to Anesthesia Routine Consulting Provider: Anesthesia,Services Consult Reason/Comments: Cardiac Surgery Pre-Op 01/21/19 17:40 Consult Physician Routine Consulting Provider: Brock Larsen Consult Reason/Comments: medical managment Do you want consulting provider notified?: Already Contacted 01/23/19 10:13 Consult Physician Routine Consulting Provider: Armando Benjamin Consult Reason/Comments: inpatient rehab Do you want consulting provider notified?: Yes Primary care physician: Stated None Hospital Course: FINAL DIAGNOSIS: 1. Critical left main stenosis, status post urgent CABG 2. Non-STEMI 3. Hyperlipidemia 4. Current tobacco dependence 5. Mild COPD with preoperative FEV1 65% of predicted 6. Significant family history of premature coronary artery disease 7. History of EtOH abuse 8. Postoperative acute blood loss anemia, an expected outcome of surgery given cardiopulmonary bypass and hemodilution PRINCIPAL PROCEDURE: 1. Selective right and left coronary angiogram performed by Dr. Desai. 2. Urgent coronary artery bypass grafting 3 vessels, left internal mammary artery to left anterior descending coronary artery, radial artery to the obtuse marginal coronary artery, a reverse greater saphenous vein graft to the posterior lateral branch of the right coronary artery. 3. Endoscopic vein harvest of the bilateral greater saphenous veins from the knee to the thigh. 4. Endoscopic harvesting of the left radial artery. 5. Intraoperative transesophageal echocardiogram. 6. Epi-aortic ultrasound. HISTORY OF PRESENT ILLNESS: This is a 43-year-old gentleman who does not follow with a primary care physician on a regular basis. He is a past medical history significant for hyperlipidemia, current tobacco abuse, history of EtOH abuse and a significant family history of premature coronary artery disease. The patient developed some severe substernal chest pain which radiated down his right arm with numbness and was diaphoretic. He presented to the emergency department here at [facility] due to his symptoms. A 12-lead EKG was completed in the emergency room which showed some ST changes to his inferior lateral leads. He did have some mild elevation in his troponins which were as high as 0.108. Due to the patient's symptoms and elevated troponins he was seen by Dr. Desai from cardiology and was taken for an urgent left and right coronary angiogram. The cardiac catheterization results demonstrated him to have a 95% stenosis to his ostial left main. Subsequently a consult was placed to Dr. Purvis from cardiothoracic surgery for further recommendations and possible myocardial revascularization surgery. The patient was seen by Dr. Phillip Balbuena from cardiothoracic surgery, his cardiac catheterization results were reviewed with the patient, risks and benefits including the STS risk score were discussed with the patient and the patient wished to proceed with urgent myocardial revascularization surgery. HOSPITAL COURSE: The patient was admitted to the hospital and after obtaining consent was taken to the operating room where Dr. Phillip Balbuena performed an urgent coronary artery bypass grafting 3 vessels, with his left internal mammary artery to his left anterior descending coronary artery, radial artery to the obtuse marginal coronary artery, a reverse greater saphenous vein graft to the posterior lateral branch of the right coronary artery. He also underwent endoscopic vein harvest of the bilateral greater saphenous veins from the knee to the thigh, endoscopic harvesting of the left radial artery and an intraoperative transesophageal echocardiogram and epi-aortic ultrasound. Upon completion of the surgery the patient was transferred to the cardiovascular intensive care unit where he was recovered, monitored hemodynamically and where he progressed cardiac rehabilitation phase 1. He was extubated, all lines, tubes and supportive drips were discontinued when appropriate. Transfer orders were placed as 3 S. cardiac stepdown unit but due to lack of bed availability he was kept in the intensive care unit for further monitoring and rehabilitation. His oxygen was titrated down, he continued to work with physical and occupational therapy, he was tolerating a normal heart healthy diet, his pain was well controlled and he was ready to be discharged home with [facility] care on postoperative day #5. He has received written and verbal instructions regarding his medications, activity restrictions, signs and symptoms requiring physician notification and his follow-up appointments. COMPLICATIONS: There were no postoperative complications. CONSULTATIONS: 1. Dr. Desai for cardiology management. 2. Dr. Larsen for medical management. 3. Dr. Singh for pulmonary and ventilator management. 4. Dr. Benjamin for rehab management. DISCHARGE INSTRUCTIONS: 1. No driving for 4 weeks, or until physician gives their ok. 2. The patient should sleep in their own bed, no medical bed needed. 3. Stairs are not an issue. If the bedroom is upstairs, it is advised that the patient go up at night and down in the morning for the first week. Go slowly, using handrail and take 1 step at a time. 4. MANE hose are to be worn for 30 days or until physician discontinues. 5. Heart hugger is to be worn 100% of the time until physician discontinues.(except when showering) 6. No lifting, pushing, or pulling more than 10 pounds for 12 weeks. The physician will advise of any restriction changes. 7. The patient is expected to continue the prescribed walking program. 8. Continue pain control per as needed orders. 9. Continue with incentive spirometry and splinting/heart hugger until otherwise directed by the physician. 10. Must shower daily using liquid antibacterial soap and a separate white washcloth for each individual incision. 11. Routine sternal incision care, no ointments, lotions or powders on the incisions. 12. Please notify surgeon/nurse practitioner for temperature greater than 101F or purulent drainage from incisions 13. Prescriptions for first 30 days given per cardiac surgery service. After 30 days, all prescription refills obtained through cardiology/primary care physician. 14. A red arm and has been placed on this patient it should be worn for 30 days post surgery and will be removed by the cardiothoracic surgeons. If an ER visit is necessary, please make sure the number on the red arm band is called. HOME HEALTH SERVICES TO PROVIDE: RN SKILLED HOME CARE SERVICES FOR POST-OP SURGICAL PATIENTS WITH THE FOLLOWING: Coronary Artery Bypass Surgery (CABG), Mitral Valve Replacement/Repair ( MVR), Aortic Valve Replacement/Repair (AVR) RN TO CONTINUE EDUCATION FROM ``ROAD TO A HEALTH HEART PATIENT EDUCATION MANUAL" (GIVEN TO PATIENT IN THE HOSPITAL) MEDICATION RECONCILIATION WITH EDUCATION NEEDED ON FIRST HOME VISIT EMPHASIZE IMPORTANCE OF WEARING BREAST SUPPORT/HEART HUGGER ENCOURAGE USE OF INCENTIVE SPIROMETER 10 X EVERY HOUR WHILE AWAKE ENCOURAGE UTILIZATION OF LOWER EXTREMITY COMPRESSION STOCKINGS/MANE HOSE and ELEVATE LEGS ABOVE LEVEL OF HEART WHILE AT REST. ENCOURAGE AMBULATION 3-5x/day INCREASING TOLERATES, WHILE AVOID EXTREMES IN TEMPERATURE FREQUENCY: RN TO OPEN THE PATIENT WITHIN 24 HOURS OF DISCHARGE FROM THE HOSPITAL WITH TELEHEALTH INSTALLED AT [facility], RN TO VISIT 2-3 X A WEEK FOR 4 WEEKS ESTABLISHED BY PATIENT NEEDS. LABORATORY: CBC, CMP TO BE DRAWN ON THE THIRD DAY HOME, , 01/29/2019. (RAN STAT) FAX RESULTS TO [phone]. TELEHEALTH PARAMETERS: WEIGHT: NOTIFY MD OF WEIGHT GAIN OF 2 LBS IN 24 HOURS OR 5 LBS IN ONE WEEK HR: NOTIFY MD OF HR <55 BPM OR HR>100 BPM BP: NOTIFY MD IF BP <90/55 OR BP>140/100 O2 SAT: NOTIFY MD IF PO2<93% ON ROOM AIR SEND TELEHEALTH REPORT TO VALVE MECHANIC AND CARDIOVASCULAR SURGEON THE FIRST WEEK OF CARE AND THEN BI-WEEKLY. PLEASE ADDITIONALLY COMMUNICATE ANY ABNORMALS AND NEW FINDINGS TO THE SURGEONS OFFICE. Patient Condition at Discharge: Fair Plan - Discharge Summary Discharge Rx Participant: Yes New Discharge Prescriptions: New Aspirin 325 mg PO DAILY #30 tab Furosemide [Lasix] 20 mg PO DAILY #5 tab Atorvastatin [Lipitor] 40 mg PO DAILY #30 tab Metoprolol Tartrate [Lopressor] 50 mg PO BID #60 tab Multivitamins, Thera [Multivitamin (formulary)] 1 each PO DAILY #30 tab amLODIPine [Norvasc] 5 mg PO DAILY@1200 #30 tab Clopidogrel [Plavix] 75 mg PO DAILY #30 tab Pantoprazole [Protonix] 40 mg PO AC-BRKFST #30 tablet.dr Navarronosidelove-Docusate Sodium [Senokot-S] 2 each PO HS #14 tab Acetaminophen Tab [Tylenol] 1,000 mg PO Q6HR PRN #120 tablet PRN Reason: Pain Thiamine [Vitamin B-1] 100 mg PO BID-W/MEALS #60 tab Discontinued Ibuprofen [Motrin Ib] 1,000 mg PO Q8H Discharge Medication List Acetaminophen Tab [Tylenol] 1,000 mg PO Q6HR PRN #120 tablet 01/26/19 [Rx] Aspirin 325 mg PO DAILY #30 tab 01/26/19 [Rx] Atorvastatin [Lipitor] 40 mg PO DAILY #30 tab 01/26/19 [Rx] Clopidogrel [Plavix] 75 mg PO DAILY #30 tab 01/26/19 [Rx] Furosemide [Lasix] 20 mg PO DAILY #5 tab 01/26/19 [Rx] Metoprolol Tartrate [Lopressor] 50 mg PO BID #60 tab 01/26/19 [Rx] Multivitamins, Thera [Multivitamin (formulary)] 1 each PO DAILY #30 tab 01/26/19 [Rx] Pantoprazole [Protonix] 40 mg PO AC-BRKFST #30 tablet.dr 01/26/19 [Rx] Sennosides-Docusate Sodium [Senokot-S] 2 each PO HS #14 tab 01/26/19 [Rx] Thiamine [Vitamin B-1] 100 mg PO BID-W/MEALS #60 tab 01/26/19 [Rx] amLODIPine [Norvasc] 5 mg PO DAILY@1200 #30 tab 01/26/19 [Rx] Follow up Appointment(s)/Referral(s): Margaux Nunez NPC [Nurse Practitioner] - 02/02/19 1:00 pm Eduar Desai MD [STAFF PHYSICIAN] - 02/16/19 3:45 pm Rosa Moreira NPC [Nurse Practitioner] - 02/12/19 3:45 pm [facility], [NON-STAFF] - 1-2 Days None,Stated [Primary Care Provider] - 1-2 days Phillip Balbuena MD [STAFF PHYSICIAN] - 02/20/19 10:00 am Ambulatory/Diagnostic Orders: Complete Blood Count w/diff [LAB.AMB] Time Frame: 01/29/19, Facility: [facility], Location: [facility] Comprehensive Metabolic Panel [LAB.AMB] Time Frame: 01/29/19, Facility: [facility], Location: [facility] Patient Instructions/Handouts: Chest Pain (ED) Activity/Diet/Wound Care/Special Instructions: DISCHARGE INSTRUCTIONS: 1. No driving for 4 weeks, or until physician gives their ok. 2. The patient should sleep in their own bed, no medical bed needed. 3. Stairs are not an issue. If the bedroom is upstairs, it is advised that the patient go up at night and down in the morning for the first week. Go slowly, using handrail and take 1 step at a time. 4. MANE hose are to be worn for 30 days or until physician discontinues. 5. Heart hugger is to be worn 100% of the time until physician discontinues.(except when showering) 6. No lifting, pushing, or pulling more than 10 pounds for 12 weeks. The physician will advise of any restriction changes. 7. The patient is expected to continue the prescribed walking program. 8. Continue pain control per as needed orders. 9. Continue with incentive spirometry and splinting/heart hugger until otherwise directed by the physician. 10. Must shower daily using liquid antibacterial soap and a separate white washcloth for each individual incision. 11. Routine sternal incision care, no ointments, lotions or powders on the incisions. 12. Please notify surgeon/nurse practitioner for temperature greater than 101F or purulent drainage from incisions 13. Prescriptions for first 30 days given per cardiac surgery service. After 30 days, all prescription refills obtained through cardiology/primary care physician. 14. A red arm and has been placed on this patient it should be worn for 30 days post surgery and will be removed by the cardiothoracic surgeons. If an ER visit is necessary, please make sure the number on the red arm band is called. HOME HEALTH SERVICES TO PROVIDE: RN SKILLED HOME CARE SERVICES FOR POST-OP SURGICAL PATIENTS WITH THE FOLLOWING: Coronary Artery Bypass Surgery (CABG), Mitral Valve Replacement/Rep air ( MVR), Aortic Valve Replacement/Repair (AVR) RN TO CONTINUE EDUCATION FROM ``ROAD TO A HEALTH HEART PATIENT EDUCATION MANUAL" (GIVEN TO PATIENT IN THE HOSPITAL) MEDICATION RECONCILIATION WITH EDUCATION NEEDED ON FIRST HOME VISIT EMPHASIZE IMPORTANCE OF WEARING BREAST SUPPORT/HEART HUGGER ENCOURAGE USE OF INCENTIVE SPIROMETER 10 X EVERY HOUR WHILE AWAKE ENCOURAGE UTILIZATION OF LOWER EXTREMITY COMPRESSION STOCKINGS/MANE HOSE and ELEVATE LEGS ABOVE LEVEL OF HEART WHILE AT REST. ENCOURAGE AMBULATION 3-5x/day INCREASING TOLERATES, WHILE AVOID EXTREMES IN TEMPERATURE FREQUENCY: RN TO OPEN THE PATIENT WITHIN 24 HOURS OF DISCHARGE FROM THE HOSPITAL WITH TELEHEALTH INSTALLED AT [facility], RN TO VISIT 2-3 X A WEEK FOR 4 WEEKS ESTABLISHED BY PATIENT NEEDS. LABORATORY: CBC, CMP TO BE DRAWN ON THE THIRD DAY HOME, , 01/29/2019. (RAN STAT) FAX RESULTS TO [phone]. TELEHEALTH PARAMETERS: WEIGHT: NOTIFY MD OF WEIGHT GAIN OF 2 LBS IN 24 HOURS OR 5 LBS IN ONE WEEK HR: NOTIFY MD OF HR <55 BPM OR HR>100 BPM BP: NOTIFY MD IF BP <90/55 OR BP>140/100 O2 SAT: NOTIFY MD IF PO2<93% ON ROOM AIR SEND TELEHEALTH REPORT TO VALVE MECHANIC AND CARDIOVASCULAR SURGEON THE FIRST WEEK OF CARE AND THEN BI-WEEKLY. PLEASE ADDITIONALLY COMMUNICATE ANY ABNORMALS AND NEW FINDINGS TO THE SURGEONS OFFICE. Discharge Disposition: HOME WITH HOME HEALTH SERVICES
[2019-01-26 12:17] VITALS: PULSE 78
[2019-01-26 13:47] VITALS: BMI 27.8
--- NOTE | 2019-01-26 20:46 | P.PN ---
Subjective Progress Note Date: 01/26/19 (delayed chartig patient seen at 0910) Principal diagnosis: chest pain Patient is a 43-year-old male with no significant past medical history who presented to the emergency department with complaints of chest pain. Patient is a significant history of family coronary artery disease. In the ER he underwent an extensive evaluation. He was found to have elevated troponins at 0.81 and an EKG that did show some changes throughout the course the ER visit. He was started on aspirin, Lipitor, metoprolol, and a heparin drip. He was admitted for non-STEMI. His troponin maxed at0.108. Cardiology was consulted. He underwent cardiac cath which showed critical disease involving the proximal left main coronary. Dr. Desai felt that he should undergo coronary artery bypass grafting and cardiovascular thoracic surgery was subsequently consulted. Patient underwent triple vessel coronary artery bypass grafting on 01/21. He was extubated the same day. He is continuing to progress well after surgery. Patient seen and examined at bedside in ICU. Still no BM, no chest pain, no SOB, has been up and ambulating in the hallways. Objective - Vital Signs Vital signs: Vital Signs Temp 98.2 F 01/26/19 08:00 Pulse 78 01/26/19 12:16 Resp 16 01/26/19 08:00 BP 100/83 01/26/19 08:00 Pulse Ox 95 01/26/19 05:26 Intake & Output 01/26/19 01/26/19 01/27/19 06:59 18:59 06:59 Intake Total 1000 250 Output Total 250 Balance 750 250 Weight 85.6 kg 85.6 kg Intake: Oral 1000 250 Output: Urine 250 Other: Voiding Method Urinal # Voids 1 ABP, PAP, CO, CI - Last Documented Arterial Blood Pressure 147/74 Pulmonary Artery Pressure 30/15 Cardiac Output 6.5 Cardiac Index 3.2 - Exam General: non toxic, no distress, appears at stated age Derm: warm, dry Cardiovascular: S1S2 reg, no murmur, positive posterior tibial pulse bilateral, Lungs: Breath sounds bilateral bases, no rhonchi, no rales , no accessory muscle use Abdominal: soft, nontender to palpation, no guarding, no appreciable organomegaly Ext: no gross muscle atrophy, no edema, no contractures Neuro: CN II-XI grossly intact, no focal neuro deficits Psych: Alert, oriented, flat affect - Labs CBC & Chem 7: 01/26/19 04:42 01/26/19 04:42 Labs: Abnormal Lab Results - Last 24 Hours (Table) 01/25/19 01/26/19 01/26/19 Range/Units 21:07 02:18 04:42 RBC 2.98 L (4.30-5.90) m/uL Hgb 9.0 L (13.0-17.5) gm/dL Hct 27.3 L (39.0-53.0) % POC Glucose (mg/dL) 135 H 117 H (75-99) mg/dL 01/26/19 01/26/19 Range/Units 06:50 11:51 RBC (4.30-5.90) m/uL Hgb (13.0-17.5) gm/dL Hct (39.0-53.0) % POC Glucose (mg/dL) 106 H 104 H (75-99) mg/dL Assessment and Plan Assessment: Triple-vessel coronary artery disease status post bypass grafting, NSTEMI -Aspirin, Lipitor, metoprolol, Plavix -Management per cardiovascular thoracic -A1c 5.5, blood pressure controlled, and LDL 52 Postoperative acute blood loss anemia, expected outcome of surgery -CBC is stable, continue to monitor Hypertension, controlled -Continue with metoprolol -Norvasc Overweight with BMI 28.6 -Outpatient structured weight loss Tobacco abuse -Cessation recommended Mild COPD -Pulmonary recommendations appreciated -Patient is on scheduled and when necessary DuoNeb's DVT prophylaxis: Heparin Discussed with: Patient, nursing, Chino Burrows NP Anticipated discharge place: Likely home today A total of 20 minutes was spent on the care of this complex patient more than 50% of the time was spent in counseling and care coordination.
[2019-01-27] MEDS ORDERED: FUROSEMIDE 20 MG TAB PO SCH (09:00)
== END 2019-01-26 14:38 | disposition home health service (06) | DRG 234 ==
LOC: EC 18:44 → 2SICU 21:44 → 3SCARD 01-19 23:50 → 2SICU 01-21 09:12
PROVIDERS: ADMIT Family Medicine; ATTEND Surgery
PROC: 4A023N7 Measurement of Cardiac Sampling and Pressure, Left Heart, Percutaneous Approach (ICD-10-PCS; 2019-01-18)
PROC: B2111ZZ Fluoroscopy of Multiple Coronary Arteries using Low Osmolar Contrast (ICD-10-PCS; 2019-01-18)
PROC: B54DZZZ Ultrasonography of Bilateral Lower Extremity Veins (ICD-10-PCS; 2019-01-19)
PROC: 02100Z9 Bypass Coronary Artery, One Artery from Left Internal Mammary, Open Approach (ICD-10-PCS; 2019-01-21)
PROC: 06BQ4ZZ Excision of Left Saphenous Vein, Percutaneous Endoscopic Approach (ICD-10-PCS; 2019-01-21)
PROC: 06BP4ZZ Excision of Right Saphenous Vein, Percutaneous Endoscopic Approach (ICD-10-PCS; 2019-01-21)
PROC: 03BC4ZZ Excision of Left Radial Artery, Percutaneous Endoscopic Approach (ICD-10-PCS; 2019-01-21)
PROC: 5A1221Z Performance of Cardiac Output, Continuous (ICD-10-PCS; 2019-01-21)
PROC: B24BZZ4 Ultrasonography of Heart with Aorta, Transesophageal (ICD-10-PCS; 2019-01-21)
PROC: 02100AW Bypass Coronary Artery, One Artery from Aorta with Autologous Arterial Tissue, Open Approach (ICD-10-PCS; principal; 2019-01-21 10:00)
PROC: 021009W Bypass Coronary Artery, One Artery from Aorta with Autologous Venous Tissue, Open Approach (ICD-10-PCS; 2019-01-21 10:00)
DX: I21.4 Non-ST elevation (NSTEMI) myocardial infarction (principal); D62 Acute posthemorrhagic anemia; J98.11 Atelectasis; E87.70 Fluid overload, unspecified; J44.9 Chronic obstructive pulmonary disease, unspecified; I25.10 Atherosclerotic heart disease of native coronary artery without angina pectoris; E66.3 Overweight; E78.5 Hyperlipidemia, unspecified; F10.10 Alcohol abuse, uncomplicated; F17.210 Nicotine dependence, cigarettes, uncomplicated; I10 Essential (primary) hypertension; R00.0 Tachycardia, unspecified; Z68.28 Body mass index [BMI] 28.0-28.9, adult; Z82.49 Family history of ischemic heart disease and other diseases of the circulatory system; Z83.3 Family history of diabetes mellitus
CPT/HCPCS: 36415; 36600; 71045; 71046; 80048; 80053; 80061; 80074; 81003; 82330; 82805; 83036; 83735; 84100; 84443; 84484; 85025; 85027; 85379; 85520; 85610; 85730; 86850; 86891; 86900; 86901; 86920; 87070; 87086; 93005; 93306; 93458; 93880; 93923; 93930; 93970; 94002; 94150; 94640; 96374; 99285

== ENCOUNTER 2019-01-29 14:53 | Emergency (ER) | payer OTHER ==
[2019-01-29 15:09] VITALS: RESP 18
--- NOTE | 2019-01-29 15:24 | ED ---
General Adult HPI - General Chief complaint: Wound/Laceration Stated complaint: post surgical complications Time Seen by Provider: 01/29/19 15:14 Source: patient, RN notes reviewed, old records reviewed Mode of arrival: ambulatory Limitations: no limitations - History of Present Illness Initial comments: 43-year-old male who is one week postop triple-vessel CABG presenting with drainage from surgical incision. Patient reported pink orange drainage from left anterior chest incision, location of previous chest tube. Patient denies any drainage prior to this episode. Denies significant dyspnea. Denies fever. Patient has been doing well postoperatively. - Related Data Home Medications Medication Instructions Recorded Confirmed Multivitamins, Thera [Multivitamin 1 tab PO DAILY 01/29/19 01/29/19 (formulary)] Sennosides-Docusate Sodium 2 tab PO HS 01/29/19 01/29/19 [Senokot-S] Previous Rx's Medication Instructions Recorded Acetaminophen Tab [Tylenol] 1,000 mg PO Q6HR PRN #120 tablet 01/26/19 Aspirin 325 mg PO DAILY #30 tab 01/26/19 Atorvastatin [Lipitor] 40 mg PO DAILY #30 tab 01/26/19 Clopidogrel [Plavix] 75 mg PO DAILY #30 tab 01/26/19 Furosemide [Lasix] 20 mg PO DAILY #5 tab 01/26/19 Metoprolol Tartrate [Lopressor] 50 mg PO BID #60 tab 01/26/19 Pantoprazole [Protonix] 40 mg PO AC-BRKFST #30 tablet. 01/26/19 Thiamine [Vitamin B-1] 100 mg PO BID-W/MEALS #60 tab 01/26/19 amLODIPine [Norvasc] 5 mg PO DAILY@1200 #30 tab 01/26/19 Furosemide [Lasix] 40 mg PO DAILY #5 tablet 01/29/19 Allergies Allergy/AdvReac Type Severity Reaction Status Date / Time No Known Allergies Allergy Verified 01/29/19 16:28 Review of Systems ROS Statement: Those systems with pertinent positive or pertinent negative responses have been documented in the HPI. ROS Other: All systems not noted in ROS Statement are negative. Past Medical History Past Medical History: Coronary Artery Disease (CAD), Hyperlipidemia History of Any Multi-Drug Resistant Organisms: None Reported Past Surgical History: Coronary Bypass/CABG, Tonsillectomy Additional Past Surgical History / Comment(s): ear surgerys 7-[address], broken fingers, history of elevated liver enzymes while in , scarlet fever 3 times while younger Past Anesthesia/Blood Transfusion Reactions: No Reported Reaction Past Psychological History: No Psychological Hx Reported Smoking Status: Current every day smoker Past Alcohol Use History: Rare Past Drug Use History: None Reported - Past Family History Mother Additional Family Medical History / Comment(s): hypoglycemic Father Family Medical History: Chest Pain / Angina, Diabetes Mellitus, Myocardial Infarction ([place]) Additional Family Medical History / Comment(s): in his early 40s from heart disease, also grandfather and several uncles with premature heart disease General Exam Limitations: no limitations General appearance: alert, in no apparent distress Head exam: Present: atraumatic, normocephalic Eye exam: Present: normal appearance, PERRL ENT exam: Present: normal exam Neck exam: Present: normal inspection. Absent: tenderness, meningismus Respiratory exam: Present: normal lung sounds bilaterally. Absent: respiratory distress, wheezes Cardiovascular Exam: Present: regular rate, normal rhythm Extremities exam: Present: normal inspection, normal capillary refill. Absent: pedal edema Neurological exam: Present: alert, oriented X3 Psychiatric exam: Present: normal affect, normal mood Skin exam: Present: warm, other (Left anterior chest incision, minimal surrounding erythema, serosanguineous drainage) Course Vital Signs 01/29/19 15:05 Temperature 98.6 F Pulse Rate 76 Respiratory 18 Rate Blood Pressure 116/66 O2 Sat by Pulse 98 Oximetry - Reevaluation(s) Reevaluation #1: 01/29/19 15:24 Case discussed with Chino Burrows, covering for cardiothoracic surgery, recommended chest x-ray, CBC, CMP. Medical Decision Making - Medical Decision Making 43-year-old male 1 week status post open heart surgery with triple vessel CABG. Has serosanguineous drainage from chest tube site. This occurred suddenly. No significant signs of infection or purulent drainage. Patient is afebrile, stable vitals. Chest x-rays obtained, shows cardiomegaly, left-sided effusion. Patient has no blood cell, 1.7 which is unchanged from discharge, hemoglobin 9.8 which is unchanged from discharge. He was evaluated emergency department by the cardiothoracic team, Chino Burrows, recommend doubling Lasix dose for the next 5 days. Patient has an appointment in 3 days with cardiothoracic surgeon. Will return with worsening or changing symptoms. - Lab Data Result diagrams: 01/29/19 15:39 01/29/19 15:39 Lab Results 01/29/19 01/29/19 01/29/19 Range/Units 15:39 15:39 15:39 WBC 11.7 H (3.8-10.6) k/uL RBC 3.22 L (4.30-5.90) m/uL Hgb 9.8 L (13.0-17.5) gm/dL Hct 29.5 L (39.0-53.0) % MCV 91.5 (80.0-100.0) fL MCH 30.6 (25.0-35.0) pg MCHC 33.4 (31.0-37.0) g/dL RDW 13.4 (11.5-15.5) % Plt Count 416 (150-450) k/uL Neutrophils % 72 % Lymphocytes % 18 % Monocytes % 7 % Eosinophils % 2 % Basophils % 0 % Neutrophils # 8.5 H (1.3-7.7) k/uL Lymphocytes # 2.1 (1.0-4.8) k/uL Monocytes # 0.8 (0-1.0) k/uL Eosinophils # 0.2 (0-0.7) k/uL Basophils # 0.1 (0-0.2) k/uL Sodium 141 (137-145) mmol/L Potassium 4.6 (3.5-5.1) mmol/L Chloride 106 (98-107) mmol/L Carbon Dioxide 26 (22-30) mmol/L Anion Gap 9 mmol/L BUN 15 (9-20) mg/dL Creatinine 0.77 (0.66-1.25) mg/dL Est GFR (CKD-EPI)AfAm >90 (>60 ml/min/1.73 sqM) Est GFR (CKD-EPI)NonAf >90 (>60 ml/min/1.73 sqM) Glucose 111 H (74-99) mg/dL Calcium 9.2 (8.4-10.2) mg/dL Total Bilirubin 0.4 (0.2-1.3) mg/dL AST 19 (17-59) U/L ALT 25 (21-72) U/L Alkaline Phosphatase 61 (38-126) U/L NT-Pro-B Natriuret Pep 830 pg/mL Total Protein 6.1 L (6.3-8.2) g/dL Albumin 3.4 L (3.5-5.0) g/dL Disposition Clinical Impression: Pleural effusion Disposition: HOME SELF-CARE Condition: Good Instructions (If sedation given, give patient instructions): Pleural Effusion (ED) Prescriptions: Furosemide [Lasix] 40 mg PO DAILY #5 tablet Is patient prescribed a controlled substance at d/c from ED?: No Referrals: None,Stated [Primary Care Provider] - 1-2 days Phillip Balbuena MD [Family Provider] - 1-2 days Time of Disposition: 16:51
--- NOTE | 2019-01-29 15:45 | XR ---
EXAMINATION TYPE: XR chest 2V DATE OF EXAM: 01/29/2019 COMPARISON: 01/26/2019 TECHNIQUE: PA and lateral views submitted. HISTORY: Pain FINDINGS: No pneumothorax. Cardiac megaly and postsurgical change with left lower lobe infiltrate and small eff usion. Hypertrophic and degenerative change of the vertebral column. IMPRESSION: 1. Left lower lobe infiltrate and small pleural effusion.
[2019-01-29 16:09] LABS: Basophils # (A) 0.1 k/uL (0-0.2); Basophils % (A) 0 %; Eosinophils # (A) 0.2 k/uL (0-0.7); Eosinophils % (A) 2 %; HCT 29.5 % (39.0-53.0); HGB 9.8 gm/dL (13.0-17.5); Lymphocytes # (A) 2.1 k/uL (1.0-4.8); Lymphocytes % (A) 18 %; MCH 30.6 pg (25.0-35.0); MCHC 33.4 g/dL (31.0-37.0); MCV 91.5 fL (80.0-100.0); Mean Platelet Volume 6.5; Monocytes # (A) 0.8 k/uL (0-1.0); Monocytes % (A) 7 %; Neutrophils # (A) 8.5 k/uL (1.3-7.7); Neutrophils % (A) 72 %; Platelet Count 416 k/uL (150-450); RBC 3.22 m/uL (4.30-5.90); RDW 13.4 % (11.5-15.5); WBC 11.7 k/uL (3.8-10.6)
[2019-01-29 16:20] LABS: ALT 25 U/L (21-72); AST 19 U/L (17-59); Albumin 3.4 g/dL (3.5-5.0); Alkaline Phosphatase 61 U/L (38-126); Anion Gap 9 mmol/L; Blood Urea Nitrogen 15 mg/dL (9-20); Calcium 9.2 mg/dL (8.4-10.2); Carbon Dioxide 26 mmol/L (22-30); Chloride 106 mmol/L (98-107); Glucose 111 mg/dL (74-99); Potassium 4.6 mmol/L (3.5-5.1); Sodium 141 mmol/L (137-145); Total Bilirubin 0.4 mg/dL (0.2-1.3); Total Protein 6.1 g/dL (6.3-8.2)
[2019-01-29 18:19] VITALS: BP 111/72; PULSE 77; TEMP 98.2
== END 2019-01-29 18:05 | disposition home or self-care (01) ==
LOC: EC 14:53
DX: J90 Pleural effusion, not elsewhere classified (principal); I51.7 Cardiomegaly; I25.10 Atherosclerotic heart disease of native coronary artery without angina pectoris; F17.200 Nicotine dependence, unspecified, uncomplicated; Z79.899 Other long term (current) drug therapy; Z95.1 Presence of aortocoronary bypass graft
CPT/HCPCS: 36415; 71046; 80053; 83880; 85025; 99284

== ENCOUNTER 2019-02-17 17:03 | Observation (INO) | payer OTHER ==
--- NOTE | 2019-02-17 18:32 | ED ---
Chest Pain HPI - General Chief Complaint: Chest Pain Stated Complaint: Lightheaded-open heart surgery Time Seen by Provider: 02/17/19 18:30 Source: patient Mode of arrival: ambulatory Limitations: no limitations - Related Data Home Medications Medication Instructions Recorded Confirmed Multivitamins, Thera [Multivitamin 1 tab PO DAILY 01/29/19 02/17/19 (formulary)] Previous Rx's Medication Instructions Recorded Acetaminophen Tab [Tylenol] 1,000 mg PO Q6HR PRN #120 tablet 01/26/19 Aspirin 325 mg PO DAILY #30 tab 01/26/19 Atorvastatin [Lipitor] 40 mg PO DAILY #30 tab 01/26/19 Clopidogrel [Plavix] 75 mg PO DAILY #30 tab 01/26/19 Metoprolol Tartrate [Lopressor] 50 mg PO BID #60 tab 01/26/19 Pantoprazole [Protonix] 40 mg PO AC-BRKFST #30 tablet. 01/26/19 Thiamine [Vitamin B-1] 100 mg PO BID-W/MEALS #60 tab 01/26/19 amLODIPine [Norvasc] 5 mg PO DAILY@1200 #30 tab 01/26/19 Allergies Allergy/AdvReac Type Severity Reaction Status Date / Time No Known Allergies Allergy Verified 02/17/19 18:55 Review of Systems ROS Statement: Those systems with pertinent positive or pertinent negative responses have been documented in the HPI. ROS Other: All systems not noted in ROS Statement are negative. Past Medical History Past Medical History: Coronary Artery Disease (CAD), Hyperlipidemia History of Any Multi-Drug Resistant Organisms: None Reported Past Surgical History: Coronary Bypass/CABG, Tonsillectomy Additional Past Surgical History / Comment(s): ear surgerys 7-[address], broken fingers, history of elevated liver enzymes while in , scarlet fever 3 times while younger Past Anesthesia/Blood Transfusion Reactions: No Reported Reaction Past Psychological History: No Psychological Hx Reported Smoking Status: Current every day smoker Past Alcohol Use History: Rare Past Drug Use History: None Reported - Past Family History Mother Additional Family Medical History / Comment(s): hypoglycemic Father Family Medical History: Chest Pain / Angina, Diabetes Mellitus, Myocardial Infarction ([place]) Additional Family Medical History / Comment(s): in his early 40s from heart disease, also grandfather and several uncles with premature heart disease General Exam Limitations: no limitations Course Vital Signs 02/17/19 02/17/19 02/17/19 17:47 18:43 20:42 Temperature 98.3 F Pulse Rate 86 76 Pulse Rate [ 73 Bilateral [employer]con[employer] Worker ] Respiratory 18 18 Rate Blood Pressure 119/70 139/90 O2 Sat by Pulse 98 100 Oximetry Disposition Clinical Impression: Chest pain Disposition: ADMITTED IP TO THIS HOSP Condition: Undetermined Instructions (If sedation given, give patient instructions): Chest Pain (ED) Is patient prescribed a controlled substance at d/c from ED?: No Referrals: Eduar Desai MD [Primary Care Provider] - 1-2 days
[2019-02-17 19:32] LABS: Basophils # (A) 0.1 k/uL (0-0.2); Basophils % (A) 1 %; Eosinophils # (A) 0.3 k/uL (0-0.7); Eosinophils % (A) 4 %; HCT 34.1 % (39.0-53.0); HGB 11.2 gm/dL (13.0-17.5); Lymphocytes # (A) 2.4 k/uL (1.0-4.8); Lymphocytes % (A) 29 %; MCH 29.7 pg (25.0-35.0); MCHC 32.8 g/dL (31.0-37.0); MCV 90.3 fL (80.0-100.0); Mean Platelet Volume 6.9; Monocytes # (A) 0.6 k/uL (0-1.0); Monocytes % (A) 7 %; Neutrophils # (A) 4.7 k/uL (1.3-7.7); Neutrophils % (A) 58 %; Platelet Count 298 k/uL (150-450); Poikilocytosis Slight; RBC 3.78 m/uL (4.30-5.90); RDW 15.1 % (11.5-15.5); WBC 8.2 k/uL (3.8-10.6)
[2019-02-17 19:42] LABS: ALT 11 U/L (21-72); AST 14 U/L (17-59); African American GFR (CKD) >90 (>60 ml/min/1.73 sqM); Alkaline Phosphatase 77 U/L (38-126); Anion Gap 7 mmol/L; Blood Urea Nitrogen 16 mg/dL (9-20); Calcium 9.3 mg/dL (8.4-10.2); Carbon Dioxide 27 mmol/L (22-30); Chloride 109 mmol/L (98-107); Glucose 110 mg/dL (74-99); Potassium 4.1 mmol/L (3.5-5.1); Sodium 143 mmol/L (137-145); Total Bilirubin 0.5 mg/dL (0.2-1.3); Total Protein 6.7 g/dL (6.3-8.2)
[2019-02-17 19:52] LABS: Partial Thromboplastin Time 21.7 sec (22.0-30.0); Prothrombin Time 10.8 sec (9.0-12.0)
[2019-02-17 20:08] LABS: D-Dimer 1.28 mg/L FEU (<0.60)
--- NOTE | 2019-02-17 20:54 | XR ---
EXAMINATION: XR chest 2V DATE AND TIME: 02/17/2019 7:25 PM CLINICAL INDICATION: PHH; Chest Pain TECHNIQUE: Departmental protocol COMPARISON: 01/29/2019 FINDINGS: The lungs are clear. The pleural spaces are negative. Sternal sutures and mediastinal clips noted. EKG leads. The cardiac silhouette appears mildly enlarge d. The remainder of the mediastinal silhouette is unremarkable. The skeletal structures and soft tissues are negative for acute findings. IMPRESSION: NO ACUTE PROCESS.
--- NOTE | 2019-02-17 21:29 | CT ---
EXAMINATION TYPE: CT angio chest with contrast and with 3-D reconstruction renderings DATE OF EXAM: 02/17/2019 8:30 PM COMPARISON: None HISTORY: chest pain [address] DLP: 348.8 mGycm Automated exposure control for dose reduction was used. CONTRAST: CTA scan of the thorax is performed with IV Contrast, patient injected with 78cc mL of Isov ue 370, pulmonary embolism protocol. Three-D reconstructions. FINDINGS: AIRWAYS, LUNGS, PLEURAL SPACES: The lungs are grossly clear, there is no concerning parenchymal mass or nodule identified. There is no pleural effusion or pneumothorax seen. The tracheobronchial tree is patent. MEDIASTINUM: There is satisfactory enhancement of the pulmonary artery and its branches, there is no CT evidence for pulmonary embolism. No acute aortic finding. Sternal sutures and mediastinal clips wi th mild cardiomegaly noted. No pericardial effusion. There are no greater than 1 cm hilar or mediasti nal lymph nodes. OTHER: No additional significant abnormality is seen. IMPRESSION: NO ACUTE PROCESS.
[2019-02-17] MEDS ORDERED: NITROGLYCERIN SL TABS 0.4 MG TAB SUBLINGUAL PRN (21:34)
[2019-02-17] MEDS ORDERED: HEPARIN SODIUM,PORCINE 5,000 UNIT/ML 1 ML VIAL IV ONE (21:34)
[2019-02-17] MEDS ORDERED: HEPARIN SODIUM,PORCINE 5,000 UNIT/ML 1 ML VIAL IV PRN (21:34)
[2019-02-17] MEDS ORDERED: ASPIRIN 81 MG PO STA (21:34)
[2019-02-17] MEDS ORDERED: HEPARIN SOD,PORK IN 0.45% NACL 25,000 UNIT in 0.45% NACL 1 250ML.BAG IV SCH (21:45)
[2019-02-17] MEDS ORDERED: SODIUM CHLORIDE 0.9% 1,000 ML IV SCH (21:45)
[2019-02-18] MEDS ORDERED: ACETAMINOPHEN TAB 500 MG TAB PO PRN (00:48)
--- NOTE | 2019-02-18 06:24 | HP ---
HISTORY AND PHYSICAL DATE OF SERVICE: 02/17/2019 CHIEF COMPLAINT: Chest pain. HISTORY OF PRESENT ILLNESS: This 43-year-old gentleman with a past medical history of recent CABG on the 8th was not followed by any primary physician in the outpatient setting currently. The patient underwent urgent CABG for critical left main stenosis. Patient also had hyperlipidemia, smoking, COPD, and past history EtOH abuse and multiple other medical issues also. The patient improved significantly. Patient went home, but currently the patient is complaining of chest pain which is situated on the left side of the chest, sharp in character, which is radiating backwards and patient came to [facility] and admitted for further evaluation. Patient reports the patient is walking significantly at this time. There is no history of any fever or rigors. No history of headache, loss of consciousness, seizures. After admission, the troponins are negative and D- dimer was 1.28, but however CT did show any evidence of pulmonary embolism. There is no history of any fever or rigors. No history of headache, loss of consciousness, seizures. PAST MEDICAL HISTORY: History of recent CAD, CABG, history of COPD, history of hyperlipidemia, history of tonsillectomy, history of nicotine dependence. MEDICATIONS: Medications prior to admission include: 1. Norvasc 5 mg p.o. daily. 2. Vitamin B1, 100 mg p.o. b.i.d. with meals. 3. Protonix 40 mg daily. 4. Plavix 75 mg p.o. daily. 5. Lipitor 40 mg p.o. daily. 6. Tylenol 1000 mg q.6 p.r.n. 7. Multivitamins one p.o. daily. 8. Lopressor 50 mg p.o. b.i.d. 9. Aspirin 325 mg p.o. daily. ALLERGIES: Allergies are none. FAMILY HISTORY: History of diabetes mellitus, myocardial infarction, hypoglycemia. SOCIAL HISTORY: History of continued smoking. No history of alcohol intake currently. REVIEW OF SYSTEMS: ENT: No diminished hearing or diminished vision. CARDIOVASCULAR SYSTEM: As mentioned earlier. RESPIRATORY SYSTEM: As mentioned earlier. GI: No nausea. : No dysuria. NERVOUS SYSTEM: No numbness or weakness. ALLERGY/IMMUNOLOGY: No history of asthma or hayfever. MUSCULOSKELETAL: As mentioned earlier. HEMATOLOGY/ONCOLOGY: No history of anemia. ENDOCRINE: No history of diabetes or hypothyroidism. CONSTITUTIONAL: As mentioned earlier. DERMATOLOGY: Negative. RHEUMATOLOGY: Negative. PSYCHIATRY: As mentioned earlier. PHYSICAL EXAMINATION: The patient is alert and oriented x3. The pulse is 67, blood pressure 132/78, respiration 16, temperature 98 degrees, pulse ox 97% on room air. HEENT: Conjunctivae normal. Oral mucosa moist. NECK: No jugular venous distention. No carotid bruit. No lymph node enlargement. CARDIOVASCULAR: S1, S2 muffled. RESPIRATORY: Breath sounds diminished at the bases. No rhonchi, no crackles. Ejection systolic murmur. ABDOMEN: Soft, nontender, no mass palpable. LEGS: No edema. No swelling. NERVOUS SYSTEM: Higher functions as mentioned. Moves all 4 limbs. No focal motor deficit. LYMPHATICS: No lymphadenopathy of the neck, axillae or groin. SKIN: No ulcer, rash or bleeding. JOINTS: No active deforming arthropathy. LABS: WBC 8.2, hemoglobin 11.2. D-dimer is 1.28. Sodium 143. The chest CT noted. ASSESSMENT: 1. Chest pain, possibly musculoskeletal, rule out unstable angina. 2. History of recent coronary artery disease, coronary artery bypass grafting. 3. History of recent non ST-segment myocardial infarction. 4. Hyperlipidemia. 5. History nicotine dependence. 6. History of chronic obstructive pulmonary disease. 7. History of EtOH abuse. RECOMMENDATIONS AND DISCUSSION: In this 43-year-old gentleman who presented with multiple medical issues, at this time will monitor the patient closely. Continue the current medications, unstable anginal protocol, cardiology consultation. Otherwise we will closely monitor. Smoking cessation recommendation has been given. Resume the home medications. Prognosis guarded because of multiple complex medical issues. Further recommendations to follow. Recommend the patient to follow up with primary physician in the outpatient setting. MMODL / IJN: [id number] /
[2019-02-18] MEDS ORDERED: PANTOPRAZOLE 40 MG TABLET PO SCH (07:30)
[2019-02-18] MEDS ORDERED: THIAMINE 100 MG TAB PO SCH (07:30)
[2019-02-18 07:53] LABS: Mean Platelet Volume 6.8; Platelet Count 282 k/uL (150-450)
[2019-02-18 08:15] LABS: Cholesterol 89 mg/dL (<200); HDL Cholesterol 30 mg/dL (40-60); LDL Cholesterol,Calculated 39 mg/dL (0-99); Triglycerides 102 mg/dL (<150)
[2019-02-18 08:21] VITALS: RESP 18
[2019-02-18] MEDS ORDERED: METOPROLOL TARTRATE 25 MG TAB PO SCH (09:00)
[2019-02-18] MEDS ORDERED: ASPIRIN 325 MG TAB PO SCH (09:00)
[2019-02-18] MEDS ORDERED: ATORVASTATIN 80 MG TAB PO SCH (09:00)
[2019-02-18] MEDS ORDERED: MULTIVITAMINS, THERA 1 EACH TAB PO SCH (09:00)
[2019-02-18] MEDS ORDERED: NICOTINE 14MG/24HR PATCH TRANSDERM SCH (09:00)
[2019-02-18] MEDS ORDERED: CLOPIDOGREL 75 MG TAB PO SCH (09:00)
--- NOTE | 2019-02-18 09:27 | P.CRDCN ---
History of Present Illness History of present illness: This is a pleasant 43-year-old male status post bypass grafting with a VELASQUEZ to LAD, radial artery to OM and SVG to the posterior lateral branch of the RCA on January 22 of this year, dyslipidemia and chronic nicotine dependence. Cardiac catheterization performed for bypass surgery revealed RCA mild disease distally, left main is a lesion in the ostium in the range of 95%, circumflex is angiographically normal, proximal LAD with mild disease only, the mid and distal LAD angiographically normal. He presented to the hospital yesterday evening after experiencing shooting pain in the left precordial region that lasted approximately one hour with no specific aggravating or alleviating factor. The pain came on he was walking around but did not improve when he sat down to rest. He continued to have chest discomfort while arriving in the emergency department and shortly thereafter it seemed to subside on its own. He denies radiation to the arm, back, neck or jaw. He denies associated shortness of breath, dizziness, nausea, vomiting or diaphoresis. He is seen and examined resting comfortably lying completely flat in bed in no acute distress. He states he's been compliant with his medications since discharge and is attempting to quit smoking. EKG on arrival reveals sinus mechanism, lateral T-wave inversions and incomplete right bundle branch block. Consistent with previous EKGs. No acute changes noted. Chest x-ray is negative for an acute cardiopulmonary process. CT chest negative for pulmonary embolism with no evidence of pericardial effusion and normal appearing aorta. Laboratory data reviewed, WBC 8.2, hemoglobin 11.2, platelets 282, d-dimer 1.28, sodium 143, potassium 4.1, creatinine 0.8, magnesium 2.0, cardiac enzymes negative 3, NT proBNP 390, LDL 39 and HDL 30. Current cardiac medications include aspirin 325 mg daily, Lopressor 50 mg twice a day, atorvastatin 40 mg daily, Plavix 75 mg daily and amlodipine 5 mg daily. Most recent echocardiogram obtained 01/19/2019 revealed preserved LV systolic function with ejection fraction 60-65%, mild tricuspid regurgitation and borderline pulmonary hypertension with an RVSP of 33 mmHg. At the time of my exam: CONSTITUTIONAL: Denies fever. Denies chills. EYES: Denies blurred vision. Denies vision changes. Denies eye pain. EARS, NOSE, MOUTH & THROAT: Denies headache. Denies sore throat. Denies ear pa in. CARDIOVASCULAR: Denies chest pain. Denies shortness of breath. Denies orthopnea. Denies PND. Denies palpitations. RESPIRATORY: Denies cough. GASTROINTESTINAL: Denies abdominal pain. Denies diarrhea. Denies constipation. Denies nausea. Denies vomiting. MUSCULOSKELETAL: Denies myalgias. INTEGUMENTARY: Denies pruitis. Denies rash. NEUROLOGIC: Denies numbness. Denies tingling. Denies weakness. PSYCHIATRIC: Denies anxiety. Denies depression. ENDOCRINE: Denies fatigue. Denies weight change. Denies polydipsia. Denies polyurina. GENITOURINARY: Denies burning, hematuria or urgency with micturation. HEMATOLOGIC: Denies history of anemia. Denies bleeding. Blood pressure 126/76 heart rate 81 afebrile maintaining oxygen saturation on room air GENERAL: This is a 43-year-old male in no apparent distress at the time of my examination. HEENT: Head is atraumatic, normocephalic. Pupils are equal, round. Sclerae anicteric. Conjunctivae are clear. Mucous membranes of the mouth are moist. Neck is supple. There is no jugular venous distention. No carotid bruit is heard. LUNGS: Clear to auscultation no wheezes, rales or rhonchi. No chest wall tenderness is noted on palpation or with deep breathing. HEART: Regular rate and rhythm without murmurs, rubs or gallops. S1 and S2 heard. ABDOMEN: Soft, nontender. Bowel sounds are heard. No organomegaly noted. EXTREMITIES: No evidence of peripheral edema and no calf tenderness noted. VASCULAR: Radial and dorsalis pedis pulses palpated, no evidence of clubbing. NEUROLOGIC: Patient is awake, alert and oriented x3. ASSESSMENT Chest pain, atypical for angina. An acute coronary event has been ruled out. History of coronary artery disease status post bypass grafting January 2019 History of myocardial infarction January 2019 maintained on dual antiplatelet therapy Dyslipidemia Hypertension Chronic nicotine dependence PLAN An acute coronary event has been ruled out. Discontinue heparin infusion. Feed the patient. Obtain limited echo to assess LV function. Increase activity and ambulation in the halls and assess for symptoms of chest discomfort. If he remains chest pain-free and there is no change in his LV function he may be discharged home, follow up and see Dr. Skaf in the office in one week. Smoking cessation recommended. Thank you kindly for this consultation. Nurse Practitioner note has been reviewed, I agree with a documented findings and plan of care. Patient was seen and examined. Past Medical History Past Medical History: Coronary Artery Disease (CAD), Hyperlipidemia History of Any Multi-Drug Resistant Organisms: None Reported Past Surgical History: Coronary Bypass/CABG, Tonsillectomy Additional Past Surgical History / Comment(s): ear surgerys 7-[address], broken fingers, history of elevated liver enzymes while in , scarlet fever 3 times while younger Past Anesthesia/Blood Transfusion Reactions: No Reported Reaction Past Psychological History: No Psychological Hx Reported Smoking Status: Current every day smoker Past Alcohol Use History: Rare Past Drug Use History: None Reported - Past Family History Mother Additional Family Medical History / Comment(s): hypoglycemic Father Family Medical History: Chest Pain / Angina, Diabetes Mellitus, Myocardial Infarction ([place]) Additional Family Medical History / Comment(s): in his early 40s from heart disease, also grandfather and several uncles with premature heart disease Medications and Allergies Home Medications Medication Instructions Recorded Confirmed Type Acetaminophen Tab [Tylenol] 1,000 mg PO Q6HR PRN #120 tablet 01/26/19 02/17/19 Rx Aspirin 325 mg PO DAILY #30 tab 01/26/19 02/17/19 Rx Atorvastatin [Lipitor] 40 mg PO DAILY #30 tab 01/26/19 02/17/19 Rx Clopidogrel [Plavix] 75 mg PO DAILY #30 tab 01/26/19 02/17/19 Rx Metoprolol Tartrate [Lopressor] 50 mg PO BID #60 tab 01/26/19 02/17/19 Rx Pantoprazole [Protonix] 40 mg PO AC-BRKFST #30 tablet. 01/26/19 02/17/19 Rx Thiamine [Vitamin B-1] 100 mg PO BID-W/MEALS #60 tab 01/26/19 02/17/19 Rx amLODIPine [Norvasc] 5 mg PO DAILY@1200 #30 tab 01/26/19 02/17/19 Rx Multivitamins, Thera [Multivitamin 1 tab PO DAILY 01/29/19 02/17/19 History (formulary)] Allergies Allergy/AdvReac Type Severity Reaction Status Date / Time No Known Allergies Allergy Verified 06/04/19 18:55 Physical Exam Vitals: Vital Signs Temp Pulse Pulse Resp BP BP Pulse Ox 02/18/19 04:54 98.4 F 99 15 133/88 97 02/18/19 03:46 17 02/18/19 00:00 82 17 02/17/19 23:04 98.0 F 67 16 132/78 97 02/17/19 22:35 98.1 F 86 18 128/83 99 02/17/19 22:11 17 02/17/19 20:42 76 18 139/90 100 02/17/19 18:43 73 02/17/19 17:47 98.3 F 86 18 119/70 98 Intake and Output 02/17/19 02/18/19 02/18/19 22:59 06:59 14:59 Intake Total 31.953 Balance 31.953 Intake: Intake, IV Titration 31.953 Amount Heparin Sod,Pork in 0.45% 31.953 NaCl 25,000 unit In 0.45 % NaCl 1 250ml.bag @ 12 UNITS/KG/HR 9.634 mls/hr IV .Q24H [facility] Rx#: [id number] Other: Voiding Method Toilet # Voids 1 1 Weight 80.286 kg Results 02/18/19 07:32 02/17/19 19:18 Cardiac Enzymes 02/17/19 02/17/19 02/18/19 Range/Units 19:18 19:18 01:03 AST 14 L (17-59) U/L Troponin I <0.012 <0.012 (0.000-0.034) ng/mL Coagulation 02/17/19 02/18/19 Range/Units 19:18 01:03 PT 10.8 (9.0-12.0) sec APTT 21.7 L 43.8 H (22.0-30.0) sec CBC 02/17/19 02/18/19 Range/Units 19:18 07:32 WBC 8.2 (3.8-10.6) k/uL RBC 3.78 L (4.30-5.90) m/uL Hgb 11.2 L (13.0-17.5) gm/dL Hct 34.1 L (39.0-53.0) % Plt Count 298 282 (150-450) k/uL Comprehensive Metabolic Panel 02/17/19 Range/Units 19:18 Sodium 143 (137-145) mmol/L Potassium 4.1 (3.5-5.1) mmol/L Chloride 109 H (98-107) mmol/L Carbon Dioxide 27 (22-30) mmol/L BUN 16 (9-20) mg/dL Creatinine 0.80 (0.66-1.25) mg/dL Glucose 110 H (74-99) mg/dL Calcium 9.3 (8.4-10.2) mg/dL AST 14 L (17-59) U/L ALT 11 L (21-72) U/L Alkaline Phosphatase 77 (38-126) U/L Total Protein 6.7 (6.3-8.2) g/dL Albumin 4.0 (3.5-5.0) g/dL Current Medications Generic Name Dose Route Start Last Admin Trade Name Freq PRN Reason Stop Dose Admin Acetaminophen 1,000 mg 02/18/19 00:48 Tylenol Tab PO Q6HR PRN Pain Amlodipine Besylate 5 mg 02/18/19 12:00 Norvasc PO DAILY@1200 [facility] Aspirin 325 mg 02/18/19 09:00 Aspirin PO DAILY [facility] Atorvastatin Calcium 80 mg 02/18/19 09:00 Lipitor PO DAILY [facility] Clopidogrel Bisulfate 75 mg 02/18/19 09:00 Plavix PO DAILY [facility] Heparin Sodium (Porcine) 0 unit 02/17/19 21:34 Heparin IV Q6HR PRN Low PTT Protocol Heparin Sodium/Sodium Chloride 250 mls @ 9.634 mls/hr 02/17/19 21:45 02/18/19 01:42 25,000 unit/ Sodium Chloride IV 14 units/kg/hr .Q24H DARIN 11.24 mls/hr Titration Protocol 12 UNITS/KG/HR Sodium Chloride 1,000 mls @ 100 mls/hr 02/17/19 21:45 02/17/19 22:21 Saline 0.9% IV 100 mls/hr .Q10H [facility] Administration Metoprolol Tartrate 25 mg 02/18/19 09:00 Lopressor PO BID [facility] Multivitamins 1 each 02/18/19 09:00 Theragran PO DAILY [facility] Nicotine 1 patch 02/18/19 09:00 Habitrol 14mg/24hr Patch TRANSDERM DAILY [facility] Nitroglycerin 0.4 mg 02/17/19 21:34 Nitrostat SUBLINGUAL Q5M PRN Chest Pain Pantoprazole Sodium 40 mg 02/18/19 07:30 Protonix PO AC-BRKFST [facility] Thiamine HCl 100 mg 02/18/19 07:30 Vitamin B-1 PO BID-W/MEALS [facility] Intake and Output 02/17/19 02/18/19 02/18/19 22:59 06:59 14:59 Intake Total 31.953 Balance 31.953 Intake: Intake, IV Titration 31.953 Amount Heparin Sod,Pork in 0.45% 31.953 NaCl 25,000 unit In 0.45 % NaCl 1 250ml.bag @ 12 UNITS/KG/HR 9.634 mls/hr IV .Q24H [facility] Rx#: [id number] Other: Voiding Method Toilet # Voids 1 1 Weight 80.286 kg 02/18/19 07:32 02/17/19 19:18
[2019-02-18 11:33] VITALS: BP 120/78; TEMP 98.1
[2019-02-18] MEDS ORDERED: amLODIPine 5 MG TAB PO SCH (12:00)
[2019-02-18 12:57] VITALS: PULSE 99
--- NOTE | 2019-02-18 20:20 | DS ---
DISCHARGE SUMMARY DATE OF SERVICE: 02/18/2019 FINAL DIAGNOSES: 1. Chest pain, possibly musculoskeletal pain. Myocardial infarction ruled out. 2. History of recent coronary artery disease, coronary artery bypass grafting. 3. History of recent ztf-LL-kldcrpc-elevation myocardial infarction. 4. Hyperlipidemia. 5. History of nicotine dependence. 6. History of chronic obstructive pulmonary disease. 7. History of ETOH abuse. DISCHARGE DISPOSITION: The patient will be discharged in stable condition with guarded prognosis. HISTORY OF PRESENT ILLNESS: This 43-year-old gentleman with a past medical history of multiple medical problems recently had CAD, CABG, and was admitted with chest pain. Myocardial infarction was ruled out. Cardiology saw the patient and recommended outpatient followup. On exam, vitals are stable. CARDIOVASCULAR: First and second sounds normal. ABDOMEN: Soft. NERVOUS SYSTEM: No focal deficit. DISCHARGE ADVICE AND MEDICATIONS: 1. Diet is cardiac. 2. Activity limited until followup. 3. Follow up with primary physician in 2-3 days. 4. Follow up with the special warfare operator as recommended. 5. Multivitamins 1 p.o. daily. 6. Aspirin 325 mg p.o. daily. 7. Lipitor 40 mg p.o. daily. 8. Lopressor 50 mg p.o. b.i.d. 9. Nitrostat p.r.n. 10.Norvasc 5 mg p.o. daily. 11.Plavix 75 mg p.o. daily. 12.Protonix 40 mg with breakfast. 13.Tylenol p.r.n. 14.Vitamin B1 100 mg b.i.d. Follow up with Cardiothoracic Surgery as recommended. MMODL / IJN: [id number] /
--- NOTE | 2019-02-19 11:10 | ECHOF ---
Referral Reason:cp MEASUREMENTS -------- HEIGHT: 175.3 cm WEIGHT: 80.3 kg BP: 126/76 RVIDd: 2.2 cm (< 3.3) IVSd: 1.1 cm (0.6 - 1.1) LVIDd: 3.6 cm (3.9 - 5.3) LVPWd: 1.4 cm (0.6 - 1.1) IVSs: 1.4 cm LVIDs: 2.2 cm LVPWs: 2.1 cm FINDINGS -------- Sinus rhythm. Limited Study The left ventricular size is normal. There is mild concentric left ventricular hypertrophy. Overa ll left ventricular systolic function is normal with, an EF between 55 - 60 %. There is a trivial pericardial effusion present. CONCLUSIONS -------- 1. Sinus rhythm. 2. Limited Study 3. The left ventricular size is normal. 4. There is mild concentric left ventricular hypertrophy. 5. Overall left ventricular systolic function is normal with, an EF between 55 - 60 %. 6. There is a trivial pericardial effusion present. BRAND COMMUNICATIONS MANAGER: Margaux Salas, [facility]
== END 2019-02-18 16:36 | disposition home or self-care (01) ==
LOC: EC 17:03 → 1SOBS 21:34
PROVIDERS: ADMIT Hospitalist; ATTEND Hospitalist
DX: R07.89 Other chest pain (principal); R07.2 Precordial pain; R42 Dizziness and giddiness; I25.10 Atherosclerotic heart disease of native coronary artery without angina pectoris; Z95.1 Presence of aortocoronary bypass graft; I25.2 Old myocardial infarction; I10 Essential (primary) hypertension; E78.5 Hyperlipidemia, unspecified; J44.9 Chronic obstructive pulmonary disease, unspecified; F17.200 Nicotine dependence, unspecified, uncomplicated; I45.10 Unspecified right bundle-branch block; I27.20 Pulmonary hypertension, unspecified; Z79.82 Long term (current) use of aspirin; Z79.899 Other long term (current) drug therapy; Z79.02 Long term (current) use of antithrombotics/antiplatelets; Z83.3 Family history of diabetes mellitus; Z82.49 Family history of ischemic heart disease and other diseases of the circulatory system
CPT/HCPCS: 96366 ×2; 96376; 96365; 99285; 36415; 93005; 93308; 85379; 83880; 80061; 80053; 83735; 84484 ×2; 85025; 85049; 85610; 85730 ×2; 71046; 71275; G0378 ×2; J1644 ×2; Q9967

== ENCOUNTER 2021-05-12 17:56 | Emergency (ER) | payer OTHER ==
[2021-05-12 18:04] VITALS: RESP 18
[2021-05-12] MEDS ORDERED: CEPHALEXIN 500MG STARTER PACK 4 CAP BTL PO STA (18:59)
[2021-05-12] MEDS ORDERED: SULFAMETH-TMP DS STARTER PACK 2 TAB BTL PO STA (18:59)
--- NOTE | 2021-05-12 19:04 | ED ---
General Adult HPI - General Chief complaint: Eye Problems Stated complaint: Swelling in Face Time Seen by Provider: 05/12/21 18:19 Source: patient Mode of arrival: ambulatory Limitations: no limitations - History of Present Illness Initial comments: 46-year-old male with a past medical history of coronary artery disease, hyperlipidemia presents to the emergency room for a chief complaint of swelling to the right cheek. Patient reports that he had a sunburn and had some pink skin on his right cheek. Yesterday he noticed it was red and swollen. Today it was worse. Patient denies any eye or difficulty moving the eye. Patient denies any fevers. Denies dental pain.Patient has no other complaints at this time including shortness of breath, chest pain, abdominal pain, nausea or vomiting, headache, or visual changes. - Related Data Home Medications Medication Instructions Recorded Confirmed Multivitamins, Thera [Multivitamin 1 tab PO DAILY 01/29/19 02/17/19 (formulary)] Previous Rx's Medication Instructions Recorded Acetaminophen Tab [Tylenol] 1,000 mg PO Q6HR PRN #120 tablet 01/26/19 Aspirin 325 mg PO DAILY #30 tab 01/26/19 Atorvastatin [Lipitor] 40 mg PO DAILY #30 tab 01/26/19 Clopidogrel [Plavix] 75 mg PO DAILY #30 tab 01/26/19 Metoprolol Tartrate [Lopressor] 50 mg PO BID #60 tab 01/26/19 Pantoprazole [Protonix] 40 mg PO AC-BRKFST #30 tablet. 01/26/19 Thiamine [Vitamin B-1] 100 mg PO BID-W/MEALS #60 tab 01/26/19 amLODIPine [Norvasc] 5 mg PO DAILY@1200 #30 tab 01/26/19 Nitroglycerin Sl Tabs [Nitrostat] 0.4 mg SUBLINGUAL Q5M PRN #20 tab 02/18/19 Cephalexin [Keflex] 500 mg PO Q6HR 10 Days #40 cap 05/12/21 Mupirocin [Mupirocin 2%] 1 applic TOPICAL TID 5 Days #5 gm 05/12/21 Sulfamethox-Tmp 800-160Mg [Bactrim 1 tab PO Q12HR #20 tab 05/12/21 DS 800-160 mg] Allergies Allergy/AdvReac Type Severity Reaction Status Date / Time No Known Allergies Allergy Verified 05/12/21 18:02 Review of Systems ROS Statement: Those systems with pertinent positive or pertinent negative responses have been documented in the HPI. ROS Other: All systems not noted in ROS Statement are negative. Past Medical History Past Medical History: Coronary Artery Disease (CAD), Hyperlipidemia History of Any Multi-Drug Resistant Organisms: None Reported Past Surgical History: Coronary Bypass/CABG, Tonsillectomy Additional Past Surgical History / Comment(s): ear surgerys 7-[address], broken fingers, history of elevated liver enzymes while in , scarlet fever 3 times while younger Past Anesthesia/Blood Transfusion Reactions: No Reported Reaction Past Psychological History: No Psychological Hx Reported Smoking Status: Never smoker Past Alcohol Use History: Rare Past Drug Use History: None Reported - Past Family History Mother Additional Family Medical History / Comment(s): hypoglycemic Father Family Medical History: Chest Pain / Angina, Diabetes Mellitus, Myocardial Infarction ([place]) Additional Family Medical History / Comment(s): in his early 40s from heart disease, also grandfather and several uncles with premature heart disease General Exam Limitations: no limitations General appearance: alert, in no apparent distress Head exam: Present: atraumatic Eye exam: Present: normal appearance, PERRL, EOMI. Absent: scleral icterus, conjunctival injection ENT exam: Present: normal exam, normal oropharynx (No dental abscesses noted), mucous membranes moist, normal external ear exam, other (Patient has mild edema and erythema of the right cheek. No abscess. ) Neck exam: Present: normal inspection, full ROM. Absent: tenderness Respiratory exam: Present: normal lung sounds bilaterally. Absent: respiratory distress, wheezes Cardiovascular Exam: Present: regular rate, normal rhythm, normal heart sounds Neurological exam: Present: alert Course Vital Signs 05/12/21 05/12/21 17:57 19:15 Temperature 98.4 F 98.5 F Pulse Rate 73 77 Respiratory 18 18 Rate Blood Pressure 158/88 155/96 O2 Sat by Pulse 98 98 Oximetry Medical Decision Making - Medical Decision Making 46-year-old male presents to the emergency room for a chief complaint of erythema noted to the anterior right cheek. This does not extend down the face. Does not involve the eye. There is no abscess noted. Suspect cellulitis. Patient does have some open skin in the area. Patient will be treated with Keflex and Bactrim. We'll also cover him with a topical mupirocin. He will need to follow up with primary care on Saturday. However if symptoms are worsening I discussed strict return parameters given location of cellulitis.I discussed this case with attending Dr. Blum who agrees with this assessment and treatment plan. Disposition Clinical Impression: Cellulitis Disposition: HOME SELF-CARE Condition: Good Instructions (If sedation given, give patient instructions): Cellulitis (ED) Additional Instructions: Please take antibiotic as directed. If symptoms are worsening you need to return to the emergency room. Otherwise follow-up with primary care on Saturday. Prescriptions: Sulfamethox-Tmp 800-160Mg [Bactrim DS 800-160 mg] 1 tab PO Q12HR #20 tab Cephalexin [Keflex] 500 mg PO Q6HR 10 Days #40 cap Mupirocin [Mupirocin 2%] 1 applic TOPICAL TID 5 Days #5 gm Is patient prescribed a controlled substance at d/c from ED?: No Referrals: León Loya Jr, [Primary Care Provider] - 1-2 days Time of Disposition: 18:59
[2021-05-12 19:16] VITALS: BP 155/96; PULSE 77; TEMP 98.5
== END 2021-05-12 19:21 | disposition home or self-care (01) ==
LOC: EC 17:56
DX: L03.211 Cellulitis of face (principal); E78.5 Hyperlipidemia, unspecified; I25.10 Atherosclerotic heart disease of native coronary artery without angina pectoris; Z79.02 Long term (current) use of antithrombotics/antiplatelets; Z79.82 Long term (current) use of aspirin; Z95.1 Presence of aortocoronary bypass graft
CPT/HCPCS: 99283

== ENCOUNTER → 2022-04-27 | Outpatient (CLI) | payer OTHER ==
--- NOTE | 2022-04-27 15:17 | NM ---
EXAMINATION TYPE: NM bone scan whole body DATE OF EXAM: 04/27/2022 COMPARISON: CT brain 02/05/2022 HISTORY: R42 DIZZINESS R93.[address] SCAN I10 HTN Delayed whole-body scanning was performed following the injection of 23.5 mCi Tc 99m MDP. Images acq uired 4 hours post injection. FINDINGS: No evidence for intense radiotracer accumulation to suggest bony metastatic disease or osseous lesion . More specifically no evidence for abnormal increased or reached decreased radiotracer accumulation involving the bony calvarium. There is increased uptake compatible with degenerative change about the shoulders, sternoclavicular joints, mid thoracic spine, bilateral knees and mid feet. IMPRESSION: Degenerative uptake.
== END | disposition home or self-care (01) ==
LOC: RADNMMAIN 08:43
PROVIDERS: ATTEND Family Medicine
DX: I10 Essential (primary) hypertension (principal); R42 Dizziness and giddiness; R93.5 Abnormal findings on diagnostic imaging of other abdominal regions, including retroperitoneum
CPT/HCPCS: 78306; A9503

== ENCOUNTER → 2022-05-01 | Outpatient (CLI) | payer OTHER ==
--- NOTE | 2022-05-01 12:06 | NM ---
EXAMINATION TYPE: NM stress cardiolite complete DATE OF EXAM: 05/01/2022 COMPARISON: NONE HISTORY: I10 PRIMARY HTN, E78.2 HYPERLIPIDEMIA, I25.708 TECHNIQUE: After the intravenous administration of 9.2 mCi Tc 99m Sestamibi - Rest images obtained 6 0 minutes post injection. The patient exercised using a MATILDE protocol and 1 minute prior to peak e xercise was injected with 24.3 mCi Tc 99m Sestamibi - Stress images obtained 20 minutes post injectio n. FINDINGS: Targeted heart rate was achieved during performance of the study. Review of stress and rest SPECT andrez ges demonstrates no distinct perfusion abnormality. Gated analysis shows normal wall motion with an estimated left ventricular ejection fraction of 66 %. IMPRESSION: No scintigraphic evidence for reversible ischemia
--- NOTE | 2022-05-01 12:38 | CA ---
Exercise Stress Test Report Name: Darren Ureña Exam Date: 05/01/2022 10:40 Exam Location: [place] Stress Ht (in): 69 Wt (lb): 225 BSA: 2.17 Ordering Phys: León Loya DO Referring Phys: TOLU, Technologist: Kulwant Espinoza Age: 47 Gender: M : 1975 Procedure CPT: Indications: I10 PRIMARY HTN, E78.2 HYPERLIPIDEMIA, I25.708 ICD-10 Codes: Patient History: Vertigo, Lt arm numbness and history of ascad Medications: Meds past 24 hrs: Pretest Chest Pain: STRESS TEST Rogelio Protocol Exercise Duration (min:sec): 08:[address] Depressions (mm): Angina Score: Bhandari Score: Resting HR (bpm): 79 Peak HR (bpm): 159 Resting BP (mmHg): 133 / 70 Peak BP (mmHg): 199 / 91 MPHR: 173 Target HR: 147 % MPHR: 92 METS: 10.3 Total Dose: Peak Dose: Atropine: Double Product: 27864 BP Response: Stress Termination: Reached target heart rate Stress Symptoms: No chest pain or symptoms Stress Summary: ECG ANALYSIS Resting ECG: Stress ECG: CONCLUSIONS Excellent exercise tolerance Normal EKG in response to exercise Please follow-up on the Cardiolite portion on a separate report Dr. Eduar Desai MD (Electronically Signed) Final Date: 01 May 2022 12:37
== END | disposition home or self-care (01) ==
LOC: RADNMMAIN 09:10
PROVIDERS: ATTEND Family Medicine
DX: I10 Essential (primary) hypertension (principal); E78.2 Mixed hyperlipidemia; I25.708 Atherosclerosis of coronary artery bypass graft(s), unspecified, with other forms of angina pectoris
CPT/HCPCS: 93017; 78452; A9500

== ENCOUNTER → 2022-05-01 | Outpatient (CLI) | payer OTHER ==
--- NOTE | 2022-05-01 12:03 | US ---
EXAMINATION TYPE: US carotid duplex BILAT DATE OF EXAM: 05/01/2022 COMPARISON: NONE CLINICAL HISTORY: R42 DIZZINESS. TECHNIQUE: Carotid duplex ultrasound examination. Indirect Doppler criteria was utilized. FINDINGS: EXAM MEASUREMENTS: RIGHT: Peak Systolic Velocity (PSV) cm/sec ----- Right CCA: 109 ----- Right ICA: 120 ----- Right ECA: 167 ICA/CCA ratio: 110. RIGHT: End Diastole cm/sec ----- Right CCA: 31.9 ----- Right ICA: 46.4 ----- Right ECA: 167 LEFT: Peak Systolic Velocity (PSV) cm/sec ----- Left CCA: 124 ----- Left ICA: 88.4 ----- Left ECA: 185 ICA/CCA ratio: 0.70 LEFT: End Diastole cm/sec ----- Left CCA: 32.4 ----- Left ICA: 37.0 ----- Left ECA: 30.3 VERTEBRALS (direction of flow): Right Vertebral: Antegrade Left Vertebral: Antegrade Rhythm: Normal PROCESSING TECH NOTES: Mild atherosclerotic changes with no significant velocity increases seen in bilate ral ICA's. Bilateral ECA's show mild velocity increase. IMPRESSION: No evidence for hemodynamically significant stenosis. Criteria for Assigning % of Stenosis / Diameter reduction (Estimation based on the indirect measurements of the internal carotid artery velocities (ICA PSV). 1. Normal (no stenosis)=ICA PSV < 125 cm/s: ratio < 2.0: ICA EDV<40 cm/s. 2. Less than 50% stenosis=ICA PSV < 125 cm/s: ratio < 2.0: ICA EDV<40 cm/s. 3. 50 to 69% stenosis=ICA PSV of 125 to 230 cm/s: ration 2.0 ? 4.0: ICA EDV 40-100 cm/s. 4. Greater than 70% stenosis to near occlusion= ICA PSV > 230 cm/s: ratio > 4.0: ICA EDV > 100 cm/s. 5. Near occlusion= ICA PSV velocities may be low or undetectable: variable ratio and ICA EDV. 6. Total occlusion=unable to detect flow.
== END | disposition home or self-care (01) ==
LOC: RADUSWWP 09:08
PROVIDERS: ATTEND Family Medicine
DX: R42 Dizziness and giddiness (principal)
CPT/HCPCS: 93880